=== PATIENT | male | born 1940 | race Caucasian/White ===

== ENCOUNTER 2017-10-29 17:53 | Emergency (ER) | payer MEDICARE, SELFPAY ==
[2017-10-29 17:55] VITALS: BP 128/60; PULSE 68; RESP 20; TEMP 36.5; O2SAT 95; BMI 30.9
--- NOTE | 2017-10-29 19:00 | ED.SOB ---
HPI - SOB/Dyspnea General Chief Complaint: Shortness of Breath/Dyspnea Stated Complaint: SOB Time Seen by Provider: 10/29/17 18:34 Source: patient and family Mode of arrival: ambulatory Limitations: no limitations History of Present Illness 76-year-old male with 30 pack-year history of smoking, AFib and hypertension presents to the emergency department with about 2 months of slowly worsening shortness of breath and cough. He states his symptoms tend to be worse at night particularly when lying flat. Additionally he is more short of breath with any exertion. Though he has a 30 pack year history of smoking he quit about 30 years ago. He has seen his primary care provider and even a motor coach tour operator within the past 2 months for help with his breathing difficulties and has been placed on bronchodilators and steroids without much improvement. He denies any recent travel, history of clots or cancer. He denies fever or chills. His last chest x-ray here was in June of 2016 and noted the the possibility of atelectasis versus pneumonia in the right lower lobe. MD Complaint: shortness of breath and cough Onset (ago): month(s) Context: occurred during exertion and smoke/fume exposure Severity: moderate Consistency/Duration: constant Relieving factors: rest Exacerbating factors: lying flat, movement and coughing Known history of: COPD Associated symptoms: denies other symptoms Treatment prior to arrival: none Related Data Home Medications Medication Instructions Recorded Confirmed [ZINC] 25 mg PO HS #0 07/07/16 omega 6-zly-thf-fish oil [Fish Oil] 1 cap PO BID #0 07/07/16 ropinirole [Requip] 2 mg PO HS #0 07/07/16 docusate sodium 250 mg PO BID #0 09/17/16 gabapentin [Neurontin] 300 mg PO HS #0 09/17/16 metronidazole 1 pepe TOPICAL #0 09/17/16 testosterone cypionate 200 mg IM X1 #0 09/17/16 [Depo-Testosterone] vitamin B complex [B 1 tab PO QDAY #0 09/17/16 Complex-Vitamin B12] aspirin 81 mg PO QDAY #0 05/02/17 levothyroxine [Synthroid] 125 mcg PO QDAY #0 05/02/17 metformin [Glucophage] 500 mg PO BIDCC #0 05/02/17 lorazepam 0.5 - 1 tab PO HSP PRN #0 05/07/17 rivaroxaban [Xarelto] 20 mg PO QDAY #0 05/07/17 Previous Rx's Medication Instructions Recorded hydroxyzine pamoate 25 mg PO Q4HP PRN #30 cap 05/11/17 morphine 15 mg PO BID PRN #60 05/11/17 oxycodone 5 - 15 mg PO Q3HP PRN #90 05/11/17 tamsulosin [Flomax] 0.4 mg PO QDAY #10 cap 05/14/17 codeine-guaifenesin 10 ml PO Q4-6H PRN #120 ml 10/29/17 promethazine-DM 5 ml PO Q4-6H PRN #118 ml 10/29/17 Allergies Allergy/AdvReac Type Severity Reaction Status Date / Time metoprolol [METOPROLOL] AdvReac Severe FATIGUE Verified 10/29/17 17:59 pravastatin [PRAVASTATIN] AdvReac Severe ARTHALGIAS Verified 10/29/17 17:59 Review of Systems Review of Systems All systems reviewed & are unremarkable except as noted in HPI and below Constitutional Denies chills, Denies fever(s), Denies lethargy and Denies weakness Eyes Denies change in vision, Denies eye discharge, Denies irritation and Denies loss of vision ENT Ears, Nose, Mouth, and Throat: Denies change in voice, Denies neck pain and Denies sore throat Cardiovascular Denies chest pain, Denies irregular heart rhythm, Denies lightheadedness, Denies palpitations, Reports dyspnea, Denies dyspnea on exertion and Denies orthopnea Respiratory Reports cough, Reports dyspnea, Denies dyspnea on exertion and Denies wheezing Gastrointestinal Gastrointestinal: Denies abdominal pain, Denies change in bowel habits, Denies diarrhea, Denies nausea and Denies vomiting Genitourinary Denies hematuria, Denies flank pain, Denies urinary incontinence and Denies urinary urgency Musculoskeletal Denies neck pain Integumentary/Breasts Denies pruritus, Denies erythema, Denies rash and Denies wounds Neurologic Denies confusion, Denies loss of vision and Denies weakness Psychiatric Denies anxiety, Denies confusion, Denies depression, Denies homicidal ideation and Denies suicidal ideation Endocrine Denies palpitations Hematologic/Lymphatic Denies easy bruising Allergic/Immunologic Denies wheezing PFSH Social History Smoking Status: Former smoker Exam Narrative Exam Narrative: Pleasant 76-year-old male appears stated age. Is resting comfortably but short of breath with exertion Initial Vital Signs Initial Vital Signs: Vital Signs Temperature 97.7 F 10/29/17 17:55 Pulse Rate 68 10/29/17 17:55 Respiratory Rate 20 10/29/17 17:55 Blood Pressure 128/60 H 10/29/17 17:55 Pulse Oximetry 95 10/29/17 17:55 Const General: cooperative and well developed Nutritional Appearance: well nourished Orientation: alert, awake, oriented x3 and not confused HENMT Head: normocephalic and atraumatic Ears: external ears normal and TM's normal bilaterally Nose: external nose normal and No nasal discharge Face and sinus: sinuses nontender, face symmetric, no sinus tenderness and No dry mucous membranes Mouth: oral mucosae normal and moist mucous membranes Teeth and gingiva: dentition normal Throat: tonsils normal and uvula midline Eyes General: appearance normal, both eyes and all related structures Eyelids: eyelids normal Conjunctivae: conjunctivae normal Sclera: sclerae normal Pupils: PERRL EOM: EOM intact bilaterally Chest Chest: normal inspection of the chest Resp Effort & Inspection: normal respiratory effort, able to speak in complete sentences, no respiratory distress and no use of accessory muscles Auscultation: diminished lung sounds (Right greater than left with some crackles in the right base), no rales, no rhonchi and no wheezes Cardio Rate: regular rate Rhythm: abnormal rhythm GI Inspection: non-distended Palpation: soft, no hepatosplenomegaly, No guarding, No pulsatile mass and No tender Auscultation: normal bowel sounds Back/Spine/Pelvis Back: No CVA tenderness Cervical Spine: cervical ROM normal and No pain with cervical ROM Thoracic/Lumbar Spine: thoracic and lumbar spine normal to inspection Neuro General: alert, oriented x3, gait normal and no focal motor deficits Speech: speech normal Course Orders Ordered: ED Orders 10/29/17 18:10 B Type Natriuretic Peptide Stat Basic Metabolic Panel Stat Complete Blood Count AUTO DIFF Stat Magnesium Stat Procalcitonin Stat Troponin with CK Cardiac Panel Stat 10/29/17 18:50 Lactate (Lactic Acid) Stat 10/29/17 18:51 Consult to Respiratory Therapy Evaluate & Treat EKG-12 Lead Stat 10/29/17 19:20 Blood Culture Stat 10/29/17 19:39 CT angio chest PE protocol Stat Discontinued Medications Guaifenesin/Codeine Phosphate (Guaifenesin/Codeine Liquid) 10 ml PO NOW ONE Stop: 10/29/17 21:13 Last Admin: 10/29/17 21:13 Dose: 10 ml Levalbuterol HCl (Xopenex) 1.25 mg INH NOW ONE Stop: 10/29/17 18:53 Last Admin: 10/29/17 19:39 Dose: 1.25 mg Methylprednisolone (Solu-Medrol 125 Mg Vial) 125 mg IV NOW ONE Stop: 10/29/17 18:52 Last Admin: 10/29/17 20:06 Dose: 125 mg Reevaluation(s) Reevaluation #1: Patient shows minimal change in symptoms after bronchodilators and steroids but cough is improved after codeine syrup Consultations Consultation #1: Upon receipt of CT scan I delivered unfortunate news to family that this appears to be a newly discovered cancers lesion in his right lung. They were very adamant no initial evaluation treatment be started locally and request consultation with the [facility]. I consulted the [facility] transfer center and they put me in touch with Dr. Leon whom was on-call for oncology. He put in an e-mail to his intake serviced to contact the patient at home tomorrow as he does not meet any admission or transfer criteria Vital Signs - 8 hr 10/29/17 19:39 10/29/17 21:43 Pulse Rate 53 L 74 Respiratory Rate 12 16 Blood Pressure [Left Arm] 155/50 H Pulse Oximetry 95 90 L MDM - SOB/Dyspnea Differential Diagnosis Likely acute exacerbation of chronic obstructive airways disease, congestive heart failure, community acquired pneumonia, asthma with exacerbation and pulmonary embolism Lab Data Attestation: I reviewed the patient's lab results. Result diagrams: 10/29/17 18:10 10/29/17 18:10 Lab Results 10/29/17 10/29/17 10/29/17 Range/Units 18:10 18:10 18:10 WBC 6.8 (4.5-11.0) X10^3/uL RBC 5.01 (4.5-5.9) X10^6/uL Hgb 12.0 L (13.5-17.5) g/dL Hct 36.9 L (41-53) % MCV 73.7 L (80-100) fL MCH 24.0 L (26-34) PG MCHC 32.6 (30-36) % RDW 17.6 H (11.6-14.8) % Plt Count 220 (150-400) X10^3/uL Neut % (Auto) 82.0 H (50-75) % Lymph % (Auto) 11.6 L (25-40) % [place] % (Auto) 4.8 (3-14) % Eos % (Auto) 1.2 L (2-4) % Baso % (Auto) 0.4 (0-2) % Neut # (Auto) 5500 (7138-9474) /uL Sodium 137 (137-145) mmol/L Potassium 3.6 (3.4-5.1) mmol/L Chloride 95 L (98-107) mmol/L Carbon Dioxide 34 H (22-32) mmol/L BUN 27 H (9-20) mg/dL Creatinine 0.70 (0.66-1.25) mg/dL Estimated GFR > 60.0 (>60) mL/min BUN/Creatinine Ratio 38.6 H (6-22) Glucose 116 H (80-110) mg/dL Lactate (0.7-2.1) mmol/L Calcium 8.3 L (8.4-10.2) mg/dL Magnesium 2.4 H (1.6-2.3) mg/dL Total Creatine Kinase 35 L (55-170) U/L Troponin I < 0.012 (0.01-0.034) ng/mL B-Natriuretic Peptide 26.7 (<29.3) Procalcitonin < 0.05 (<0.5) ng/mL 10/29/17 Range/Units 18:50 WBC (4.5-11.0) X10^3/uL RBC (4.5-5.9) X10^6/uL Hgb (13.5-17.5) g/dL Hct (41-53) % MCV (80-100) fL MCH (26-34) PG MCHC (30-36) % RDW (11.6-14.8) % Plt Count (150-400) X10^3/uL Neut % (Auto) (50-75) % Lymph % (Auto) (25-40) % [place] % (Auto) (3-14) % Eos % (Auto) (2-4) % Baso % (Auto) (0-2) % Neut # (Auto) (5659-3372) /uL Sodium (137-145) mmol/L Potassium (3.4-5.1) mmol/L Chloride (98-107) mmol/L Carbon Dioxide (22-32) mmol/L BUN (9-20) mg/dL Creatinine (0.66-1.25) mg/dL Estimated GFR (>60) mL/min BUN/Creatinine Ratio (6-22) Glucose (80-110) mg/dL Lactate 1.3 (0.7-2.1) mmol/L Calcium (8.4-10.2) mg/dL Magnesium (1.6-2.3) mg/dL Total Creatine Kinase (55-170) U/L Troponin I (0.01-0.034) ng/mL B-Natriuretic Peptide (<29.3) Procalcitonin (<0.5) ng/mL Imaging Data CT scan - chest: Radiologist's impression: PROCEDURE: CT ANGIO CHEST PE PROTOCOL INDICATIONS: SHORTNESS OF BREATH, hypoxia TECHNIQUE: After the administration of intravenous contrast, 2 mm thick sections acquired from the pulmonary apices to the posterior costophrenic angles. 3-dimensional maximum intensity projection (MIP) coronal and sagittal reformats were then acquired through the thorax. For radiation dose reduction, the following was used: automated exposure control, adjustment of mA and/or kV according to patient size. COMPARISON: [facility], CT, LOWER EXTREMITY WO CONTRAST, 07/26/2015, 15:28. FINDINGS: Image quality: Excellent. Pulmonary arteries: Pulmonary arteries demonstrate no intraluminal filling defects to suggest central pulmonary embolism. Mediastinal and hilar lymphadenopathy narrows branches of the right pulmonary artery. Lungs and pleura: There is a 5.2 cm right lower lobe pulmonary mass. There is occlusion of the right lower lobe and middle lobe airways causing near-complete right middle lobe collapse. The left lung is clear. Mediastinum: Cardiomegaly. There is extensive lymphadenopathy centered on the right hilum in aggregate measuring 10.5 x 5.0 CM markedly narrowed branches of the right pulmonary artery as well as the right middle and lower lobe airways. Normal esophagus. Bones and chest wall: Extensive thoracolumbar spine postoperative change. Vertebroplasty. Severe degenerative change. Abdomen: Cholelithiasis with no CT evidence of acute cholecystitis. Low-density right renal nodule most consistent with a simple cyst. Prominent left adrenal gland with no discrete nodule. Otherwise visualized upper abdominal solid organs appear normal in the early arterial phase of enhancement. IMPRESSION: 1. Malignant right lower lobe mass with extensive mediastinal and right hilar lymphadenopathy measuring in aggregate over 10 cm narrowing branches of the right pulmonary artery and the right middle and lower lobe airways causing postobstructive collapse of the right middle lobe. 2. No CT evidence of acute pulmonary emboli. 3. Extensive thoracolumbar spine postoperative change and degenerative change. 4. Cholelithiasis. Dictated by: David Grubbs M.D. on 10/29/2017 at 20:14 Approved by: David Grubbs M.D. 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 I will call you or your son dari when I get more info Return to the emergency department if you have any worsening symptoms Prescriptions: New promethazine-DM 6.25-15 mg/5 mL syrup 5 ml PO Q4-6H PRN (Reason: cough) Qty: 118 RF: 0 codeine-guaifenesin 10-100 mg/5 mL liquid 10 ml PO Q4-6H PRN (Reason: cough) Qty: 120 RF: 0 No Action ropinirole [Requip] 1 MG tablet 2 mg PO HS Qty: 0 RF: 0 omega 4-mnw-scm-fish oil [Fish Oil] 1,000 MG capsule 1 cap PO BID Qty: 0 RF: 0 [ZINC] 25 mg PO HS Qty: 0 RF: 0 vitamin B complex [B Complex-Vitamin B12] 1 EACH tablet 1 tab PO QDAY Qty: 0 RF: 0 gabapentin [Neurontin] 300 MG capsule 300 mg PO HS Qty: 0 RF: 0 docusate sodium 250 MG capsule 250 mg PO BID Qty: 0 RF: 0 metronidazole 0.75 % cream 1 pepe Topical Qty: 0 RF: 0 testosterone cypionate [Depo-Testosterone] 200 MG/1 ML oil 200 mg IM X1 Qty: 0 RF: 0 levothyroxine [Synthroid] 125 MCG tablet 125 mcg PO QDAY Qty: 0 RF: 0 aspirin 81 MG tablet,delayed release (DR/EC) 81 mg PO QDAY Qty: 0 RF: 0 metformin [Glucophage] 500 MG tablet 500 mg PO BIDCC Qty: 0 RF: 0 lorazepam 1 MG tablet 0.5 - 1 tab PO HSP PRNQty: 0 RF: 0 rivaroxaban [Xarelto] 20 MG tablet 20 mg PO QDAY Qty: 0 RF: 0 oxycodone 5 MG tablet 5 - 15 mg PO Q3HP PRNQty: 90 RF: 0 hydroxyzine pamoate 25 MG capsule 25 mg PO Q4HP PRNQty: 30 RF: 0 morphine 15 MG tablet extended release 15 mg PO BID PRNQty: 60 RF: 0 tamsulosin [Flomax] 0.4 MG capsule,extended release 24hr 0.4 mg PO QDAY Qty: 10 RF: 0
[2017-10-29 19:08] LABS: BUN Creatinine Ratio 38.6 (6-22); Blood Urea Nitrogen 27 mg/dL (9-20); Calcium 8.3 mg/dL (8.4-10.2); Carbon Dioxide 34 mmol/L (22-32); Chloride 95 mmol/L (98-107); Creatine Kinase 35 U/L (55-170); Estimated Glomerular Filt Rate > 60.0 mL/min (>60); Glucose 116 mg/dL (80-110); HEMOLYSIS < 15 (0-50); Magnesium 2.4 mg/dL (1.6-2.3); Potassium 3.6 mmol/L (3.4-5.1); Sodium 137 mmol/L (137-145)
--- NOTE | 2017-10-29 19:08 | PC.NURSE ---
bhavya blood cx and lactate out of iv site. lab to draw 2nd cx
[2017-10-29 19:09] LABS: Add Manual Diff / Slide Review NO; Basophils Percent Auto 0.4 % (0-2); Eosinophils Percent Auto 1.2 % (2-4); Hematocrit 36.9 % (41-53); Lymphocytes Percent Auto 11.6 % (25-40); Mean Corpuscular HGB Conc 32.6 % (30-36); Mean Corpuscular Volume 73.7 fL (80-100); Monocytes Percent Auto 4.8 % (3-14); Neutrophils Absolute Auto 5500 /uL (3000-5900); Platelet Count 220 X10^3/uL (150-400); Red Blood Cell Count 5.01 X10^6/uL (4.5-5.9); Red Cell Distribution Width 17.6 % (11.6-14.8); White Blood Cell Count 6.8 X10^3/uL (4.5-11.0)
[2017-10-29 19:23] LABS: Troponin I < 0.012 ng/mL (0.01-0.034)
[2017-10-29 19:26] LABS: B Type Natriuretic Peptide 26.7 (<29.3)
[2017-10-29 19:26] LABS: Lactate (Lactic Acid) 1.3 mmol/L (0.7-2.1)
[2017-10-29 19:31] LABS: Procalcitonin < 0.05 ng/mL (<0.5)
[2017-10-29 19:39] VITALS: PULSE 53; RESP 12; O2SAT 95
[2017-10-29] MEDS: LEVALBUTEROL 1.25 MG/0.5 ML NEB INH (19:39)
--- NOTE | 2017-10-29 19:39 | DI.CT.S_ITS ---
PROCEDURE: CT ANGIO CHEST PE PROTOCOL INDICATIONS: SHORTNESS OF BREATH, hypoxia TECHNIQUE: After the administration of intravenous contrast, 2 mm thick sections acquired from the pulmonary apices to the posterior costophrenic angles. 3-dimensional maximum intensity projection (MIP) coronal and sagittal reformats were then acquired through the thorax. For radiation dose reduction, the following was used: automated exposure control, adjustment of mA and/or kV according to patient size. COMPARISON: [facility], CT, LOWER EXTREMITY WO CONTRAST, 07/26/2015, 15:28. FINDINGS: Image quality: Excellent. Pulmonary arteries: Pulmonary arteries demonstrate no intraluminal filling defects to suggest central pulmonary embolism. Mediastinal and hilar lymphadenopathy narrows branches of the right pulmonary artery. Lungs and pleura: There is a 5.2 cm right lower lobe pulmonary mass. There is occlusion of the right lower lobe and middle lobe airways causing near-complete right middle lobe collapse. The left lung is clear. Mediastinum: Cardiomegaly. There is extensive lymphadenopathy centered on the right hilum in aggregate measuring 10.5 x 5.0 CM markedly narrowed branches of the right pulmonary artery as well as the right middle and lower lobe airways. Normal esophagus. Bones and chest wall: Extensive thoracolumbar spine postoperative change. Vertebroplasty. Severe degenerative change. Abdomen: Cholelithiasis with no CT evidence of acute cholecystitis. Low-density right renal nodule most consistent with a simple cyst. Prominent left adrenal gland with no discrete nodule. Otherwise visualized upper abdominal solid organs appear normal in the early arterial phase of enhancement. IMPRESSION: 1. Malignant right lower lobe mass with extensive mediastinal and right hilar lymphadenopathy measuring in aggregate over 10 cm narrowing branches of the right pulmonary artery and the right middle and lower lobe airways causing postobstructive collapse of the right middle lobe. 2. No CT evidence of acute pulmonary emboli. 3. Extensive thoracolumbar spine postoperative change and degenerative change. 4. Cholelithiasis. Dictated by: David Grubbs M.D. on 10/29/2017 at 20:14 Approved by: David Grubbs M.D. on 10/29/2017 at 20:25
--- NOTE | 2017-10-29 19:39 | PC.NURSE ---
pt reports worsening fatigue/soa for weeks, difficulty clearing secretions, reports sx resolve with cough syrup with tylenol 3s and a tranquilizer, upper lung fink clear, diminished at bases, afib on monitor reported as baseline per pt, denies fever/nausea/dizziness/headache/cp/abd pain/vomiting/dysuria, reports chronic constipation, abd soft/nontender, +1 edema in lower ext
[2017-10-29] MEDS: methylPREDNISolone 125 MG/2 ML VIAL IV (20:06)
[2017-10-29] MEDS: CODEINE/GUAIFENESIN LIQUID 10 ML PO (21:13)
[2017-10-29 21:43] VITALS: BP 155/50; PULSE 74; RESP 16; O2SAT 90
== END 2017-10-29 22:00 | disposition home or self-care (01) ==
PROVIDERS: Emergency Provider Emergency Medicine; Family Provider Internal Medicine; PCP Internal Medicine
DX: C34.91 Malignant neoplasm of unspecified part of right bronchus or lung (principal)
CPT/HCPCS: 36415; 36591; 71275; 80048; 82550; 82553; 83605; 83735; 83880; 84145; 84484; 85025; 87040; 93005; 94640; 96374; 99282; 99285; J2930; J7614; Q9967

== ENCOUNTER → 2017-11-21 11:27 | Outpatient (CLI) | payer MEDICARE, SELFPAY ==
--- NOTE | 2017-11-23 07:54 | PM.PFT.1 ---
Pulmonary Function Test Referral & Results Date Patient Seen: 11/21/17 Requesting provider: Cristela Hauser Results: The spirometry demonstrates an FVC of 1.93 L which is 42% of predicted. The FEV1 was measured at 1.15 L which is 34% of predicted. The FEV1/FVC ratio was 60 which is 81% of predicted. Following the administration of bronchodilator there was a 17% improvement in the FEV1 and a 71% improvement in the FEF 25-75%. Lung volumes show an SVC of 2.18 L which is 45% of predicted. The diffusing capacity was measured at 17.33 which is 49% of predicted. The maximum voluntary ventilation was reduced. Interpretation: This study demonstrates severe obstructive lung disease with some limited evidence of benefit following bronchodilator, with increase in FEV1 and a more significant increase in small airway flow based on improvement in FEF 25-75%. There is also moderately severe restrictive lung disease based on significant reduction in lung volumes There is also significant reduction in diffusing capacity suggesting significant disease at the capillary alveolar level.
== END ==
PROVIDERS: Family Provider Internal Medicine Geriatric Medicine; PCP Internal Medicine Cardiovascular Disease; Visit Provider Radiology Radiation Oncology
DX: C34.31 Malignant neoplasm of lower lobe, right bronchus or lung (principal)
CPT/HCPCS: 94010; 94060; 94729

== ENCOUNTER → 2018-02-11 11:06 | Outpatient (CLI) | payer MEDICARE, SELFPAY ==
[2018-02-11 11:41] LABS: Occult Blood 1 Negative (Negative); Occult Blood 2 Negative (Negative); Occult Blood 3 Negative (Negative)
== END ==
PROVIDERS: Family Provider Internal Medicine Geriatric Medicine; PCP Internal Medicine Cardiovascular Disease; Visit Provider Internal Medicine Medical Oncology
DX: C34.90 Malignant neoplasm of unspecified part of unspecified bronchus or lung (principal)
CPT/HCPCS: 82270

== ENCOUNTER 2018-04-10 13:07 | Emergency (ER) | payer MEDICARE, SELFPAY ==
[2018-04-10 13:20] VITALS: BP 164/95; PULSE 105; RESP 21; TEMP 36.7; O2SAT 96
--- NOTE | 2018-04-10 13:47 | DI.CT.S_ITS ---
PROCEDURE: CT ANGIO CHEST PE PROTOCOL INDICATIONS: SOB, hx of lung cancer effusion TECHNIQUE: After the administration of intravenous contrast, 2 mm thick sections acquired from the pulmonary apices to the posterior costophrenic angles. 3-dimensional maximum intensity projection (MIP) coronal and sagittal reformats were then acquired through the thorax. For radiation dose reduction, the following was used: automated exposure control, adjustment of mA and/or kV according to patient size. COMPARISON: [facility], CT, CT ANGIO CHEST PE PROTOCOL, 10/29/2017, 19:36. FINDINGS: Image quality: Excellent. Pulmonary arteries: Pulmonary arteries are normal in size, and demonstrate no intraluminal filling defects to suggest central pulmonary embolism. Lungs and pleura: There is a large low density right pleural effusion which is new when compared with the prior CT dated 10/29/17. Patient has likely undergone radiation therapy for a lobulated hilar mass described on the prior CT dated 10/29/17. Findings consistent with postradiation scar is now present. However, patchy pulmonary opacities are also present within the right lower lobe and the right middle lobe which have the appearance of acute airspace disease. The left lung is clear. No pneumothorax. Mediastinum: Heart size is enlarged, without pericardial effusion. No mediastinal or hilar adenopathy. Thoracic aorta is normal in caliber and enhancement. Scattered atheromatous calcifications are present within the aortic arch. Esophagus is normal in caliber, without hiatal hernia. Bones and chest wall: No suspicious bony lesions. Posterior spinal fixation hardware is grossly intact. Ribs and thoracic spine appear intact throughout. Thyroid gland is unremarkable. No axillary or supraclavicular adenopathy. Abdomen: Visualized upper abdominal solid organs appear normal in the early arterial phase of enhancement. IMPRESSION: 1. Large low density right pleural effusion which is new when compared with the prior CT dated 10/29/17. 2. Air space opacities, some of which may represent radiation scarring; however superimposed pneumonia or aspiration is suggested given the pattern and distribution of the air space opacities. 3. No acute pulmonary embolus. Dictated by: Mica Frederick M.D. on 04/10/2018 at 15:26 Approved by: Mica Frederick M.D. on 04/10/2018 at 15:30
--- NOTE | 2018-04-10 13:49 | ED.SOB ---
HPI - SOB/Dyspnea General Chief Complaint: Shortness of Breath/Dyspnea Stated Complaint: Multiple complaints, family says cognitive issues Time Seen by Provider: 04/10/18 13:19 Source: patient Mode of arrival: ambulatory Limitations: no limitations History of Present Illness The patient is a 77-year-old male who presents with shortness of breath. He has past medical history of known lung cancer currently being treated at [facility] he is enrolled in a clinical study he is done with chemotherapy and is on immunotherapy. He has had a right pleural effusion in the past which has required thoracentesis. He is currently in AFib with RVR he denies chest pain or heart palpitations. He has had frequent episodes of dyspnea both at rest and with exertion. He used to be on anticoagulation both the Xarelto and Coumadin at some point but is on neither now. He has not had fever or chills. He is here with son and both of whom are very informed. MD Complaint: shortness of breath Related Data Home Medications Medication Instructions Recorded Confirmed [ZINC] 25 mg PO HS #0 07/07/16 omega 9-nze-uvw-fish oil [Fish Oil] 1 cap PO BID #0 07/07/16 ropinirole [Requip] 2 mg PO HS #0 07/07/16 metronidazole 1 pepe TOPICAL #0 09/17/16 testosterone cypionate 200 mg IM X1 #0 09/17/16 [Depo-Testosterone] vitamin B complex [B 1 tab PO QDAY #0 09/17/16 Complex-Vitamin B12] aspirin 81 mg PO QDAY #0 05/02/17 levothyroxine [Synthroid] 125 mcg PO QDAY #0 05/02/17 04/10/18 metformin [Glucophage] 1,000 mg PO BIDCC #0 05/02/17 04/10/18 albuterol sulfate [ProAir HFA] 2 puff INHALATION Q6H PRN 04/10/18 04/10/18 atorvastatin 10 mg PO QPM 04/10/18 04/10/18 diltiazem HCl 180 mg PO DAILY 04/10/18 04/10/18 dorzolamide-timolol 1 drp OPHTHALMIC (EYE) BID 04/10/18 04/10/18 doxazosin 4 mg PO DAILY 04/10/18 04/10/18 duloxetine 20 mg PO DAILY 04/10/18 04/10/18 escitalopram oxalate 20 mg PO DAILY 04/10/18 04/10/18 furosemide 20 mg PO DAILY PRN 04/10/18 04/10/18 ketoconazole 1 applic TOPICAL BID 04/10/18 04/10/18 latanoprost 1 drp OPHTHALMIC (EYE) BEDTIME 04/10/18 04/10/18 lorazepam 1.5 mg PO BEDTIME PRN 04/10/18 04/10/18 metoclopramide HCl 10 mg PO Q6H PRN 04/10/18 04/10/18 metronidazole 1 applic TOPICAL BID 04/10/18 04/10/18 omeprazole 40 mg PO DAILY 04/10/18 04/10/18 potassium chloride 10 meq PO BID 04/10/18 04/10/18 ropinirole 0.5 mg PO BEDTIME 04/10/18 04/10/18 ropinirole 2 mg PO BEDTIME 04/10/18 04/10/18 sennosides [senna] 17.2 mg PO BEDTIME PRN 04/10/18 04/10/18 tamsulosin [Flomax] 0.4 mg PO BEDTIME 04/10/18 04/10/18 Previous Rx's Medication Instructions Recorded oxycodone 5 - 15 mg PO Q3HP PRN #90 05/11/17 codeine-guaifenesin 10 ml PO Q4-6H PRN #120 ml 10/29/17 promethazine-DM 5 ml PO Q4-6H PRN #118 ml 10/29/17 Allergies Allergy/AdvReac Type Severity Reaction Status Date / Time metoprolol [METOPROLOL] AdvReac Severe FATIGUE Verified 10/29/17 17:59 pravastatin [PRAVASTATIN] AdvReac Severe ARTHALGIAS Verified 10/29/17 17:59 Review of Systems Review of Systems All systems reviewed & are unremarkable except as noted in HPI and below Constitutional Denies chills, Denies fatigue, Denies fever(s), Denies lethargy and Denies weakness Cardiovascular Reports as per HPI, Reports irregular heart rhythm (Atrial fibrillation), Reports dyspnea and Reports dyspnea on exertion Respiratory Reports as per HPI, Denies cough, Reports dyspnea, Reports dyspnea on exertion and Denies wheezing Gastrointestinal Gastrointestinal: Denies abdominal pain, Denies change in bowel habits, Denies diarrhea, Denies nausea and Denies vomiting Genitourinary Denies hematuria, Denies flank pain, Denies urinary incontinence and Denies urinary urgency Musculoskeletal Denies back pain, Denies muscle weakness, Denies numbness and Denies tingling Integumentary/Breasts Denies pruritus, Denies erythema, Denies rash and Denies wounds Neurologic Denies numbness, Denies tingling and Denies weakness Endocrine Denies fatigue and Denies flushing Allergic/Immunologic Denies wheezing PFSH Medical History Atrial fibrillation (Acute) Diabetes (Acute) Lung cancer (Acute) Social History Smoking Status: Former smoker Exam Initial Vital Signs Initial Vital Signs: Vital Signs Temperature 98.1 F 04/10/18 13:20 Pulse Rate 105 H 04/10/18 13:20 Respiratory Rate 21 04/10/18 13:20 Blood Pressure 164/95 H 04/10/18 13:20 Pulse Oximetry 96 04/10/18 13:20 GENERAL: Alert comfortable A&Ox3 no acute distress HEENT: Head atraumatic,EOMI, pupils reactive, neck is supple no JVD CARDIOVASCULAR: irregularly irregular no murmur RESPIRATORY: Decreased low no wheezes rales or rhonchi speaks in full sentences without difficulty ABDOMEN: Soft, nontender. Normoactive bowel sounds all 4 quadrants. No guarding or rebound. EXTREMITIES: Normal range of motion, no clubbing or edema. Neurovascularly intact NEUROLOGICAL: Alert and oriented x4.Normal gait and speech. Cranial nerves II through XII grossly intact. SKIN: Warm, dry, no laceration, no petechiae, no rashes or lesions. Course Orders Ordered: ED Orders 04/10/18 13:46 Consult to Respiratory Therapy Evaluate & Treat 04/10/18 13:47 CT angio chest PE protocol Stat 04/10/18 14:25 B Type Natriuretic Peptide Stat Complete Blood Count AUTO DIFF Stat Comprehensive Metabolic Panel Stat Partial Thromboplastin Time Stat Prothrombin Time INR Stat Troponin & CK Cardiac Panel Stat Discontinued Medications Diltiazem HCl (Cardizem) 10 mg IV NOW ONE Stop: 04/10/18 15:54 Last Admin: 04/10/18 16:00 Dose: 10 mg Vital Signs - 8 hr 04/10/18 13:20 04/10/18 15:29 04/10/18 16:00 Temperature 98.1 F Pulse Rate 105 H 109 H 123 H Respiratory Rate 21 16 Blood Pressure 164/95 H 178/89 H Blood Pressure [Left Arm] 184/83 H Pulse Oximetry 96 96 04/10/18 16:48 Temperature Pulse Rate 98 H Respiratory Rate 20 Blood Pressure 184/91 H Blood Pressure [Left Arm] Pulse Oximetry 95 MDM - SOB/Dyspnea Lab Data Attestation: I reviewed the patient's lab results. Result diagrams: 04/10/18 14:25 04/10/18 14:25 Lab Results 04/10/18 04/10/18 04/10/18 Range/Units 14:25 14:25 14:25 WBC 5.1 (4.5-11.0) X10^3/uL RBC 4.79 (4.5-5.9) X10^6/uL Hgb 12.2 L (13.5-17.5) g/dL Hct 37.8 L (41-53) % MCV 79.0 L (80-100) fL MCH 25.4 L (26-34) PG MCHC 32.2 (30-36) % RDW 18.8 H (11.6-14.8) % Plt Count 235 (150-400) X10^3/uL Neut % (Auto) 84.4 H (50-75) % Lymph % (Auto) 6.9 L (25-40) % [place] % (Auto) 5.1 (3-14) % Eos % (Auto) 2.8 (2-4) % Baso % (Auto) 0.8 (0-2) % Neut # (Auto) 4300 (5497-3171) /uL PT 11.3 (10.1-12.7) SECONDS INR 1.1 (0.9-1.3) APTT 35 (26.4-36.2) SECONDS Sodium (137-145) mmol/L Potassium (3.4-5.1) mmol/L Chloride (98-107) mmol/L Carbon Dioxide (22-32) mmol/L BUN (9-20) mg/dL Creatinine (0.66-1.25) mg/dL Estimated GFR (>60) mL/min BUN/Creatinine Ratio (6-22) Glucose (80-110) mg/dL Calcium (8.4-10.2) mg/dL Total Bilirubin (0.2-1.3) mg/dL AST (17-59) IU/L ALT (21-72) IU/L Alkaline Phosphatase (38-126) U/L Total Creatine Kinase 42 L (55-170) U/L CK-MB (CK-2) TNP CK-MB (CK-2) Rel Index TNP Troponin I 0.013 (0.01-0.034) ng/mL B-Natriuretic Peptide 111.0 H (<100) Total Protein (6.3-8.2) g/dL Albumin (3.5-5.0) g/dL Globulin (1.7-4.1) g/dL Albumin/Globulin Ratio (1.0-2.8) //18 Range/Units 14:25 WBC (4.5-11.0) X10^3/uL RBC (4.5-5.9) X10^6/uL Hgb (13.5-17.5) g/dL Hct (41-53) % MCV (80-100) fL MCH (26-34) PG MCHC (30-36) % RDW (11.6-14.8) % Plt Count (150-400) X10^3/uL Neut % (Auto) (50-75) % Lymph % (Auto) (25-40) % [place] % (Auto) (3-14) % Eos % (Auto) (2-4) % Baso % (Auto) (0-2) % Neut # (Auto) (9682-9696) /uL PT (10.1-12.7) SECONDS INR (0.9-1.3) APTT (26.4-36.2) SECONDS Sodium 139 (137-145) mmol/L Potassium 3.9 (3.4-5.1) mmol/L Chloride 96 L (98-107) mmol/L Carbon Dioxide 34 H (22-32) mmol/L BUN 18 (9-20) mg/dL Creatinine 0.60 L (0.66-1.25) mg/dL Estimated GFR > 60.0 (>60) mL/min BUN/Creatinine Ratio 30.0 H (6-22) Glucose 189 H (80-110) mg/dL Calcium 8.7 (8.4-10.2) mg/dL Total Bilirubin 0.5 (0.2-1.3) mg/dL AST 22 (17-59) IU/L ALT 24 (21-72) IU/L Alkaline Phosphatase 88 (38-126) U/L Total Creatine Kinase (55-170) U/L CK-MB (CK-2) CK-MB (CK-2) Rel Index Troponin I (0.01-0.034) ng/mL B-Natriuretic Peptide (<100) Total Protein 6.4 (6.3-8.2) g/dL Albumin 3.9 (3.5-5.0) g/dL Globulin 2.5 (1.7-4.1) g/dL Albumin/Globulin Ratio 1.6 (1.0-2.8) Imaging Data CT PE: Radiologist's impression: PROCEDURE: CT ANGIO CHEST PE PROTOCOL INDICATIONS: SOB, hx of lung cancer effusion TECHNIQUE: After the administration of intravenous contrast, 2 mm thick sections acquired from the pulmonary apices to the posterior costophrenic angles. 3-dimensional maximum intensity projection (MIP) coronal and sagittal reformats were then acquired through the thorax. For radiation dose reduction, the following was used: automated exposure control, adjustment of mA and/or kV according to patient size. COMPARISON: [facility], CT, CT ANGIO CHEST PE PROTOCOL, 10/29/2017, 19:36. FINDINGS: Image quality: Excellent. Pulmonary arteries: Pulmonary arteries are normal in size, and demonstrate no intraluminal filling defects to suggest central pulmonary embolism. Lungs and pleura: There is a large low density right pleural effusion which is new when compared with the prior CT dated 10/29/17. Patient has likely undergone radiation therapy for a lobulated hilar mass described on the prior CT dated 10/29/17. Findings consistent with postradiation scar is now present. However, patchy pulmonary opacities are also present within the right lower lobe and the right middle lobe which have the appearance of acute airspace disease. The left lung is clear. No pneumothorax. Mediastinum: Heart size is enlarged, without pericardial effusion. No mediastinal or hilar adenopathy. Thoracic aorta is normal in caliber and enhancement. Scattered atheromatous calcifications are present within the aortic arch. Esophagus is normal in caliber, without hiatal hernia. Bones and chest wall: No suspicious bony lesions. Posterior spinal fixation hardware is grossly intact. Ribs and thoracic spine appear intact throughout. Thyroid gland is unremarkable. No axillary or supraclavicular adenopathy. Abdomen: Visualized upper abdominal solid organs appear normal in the early arterial phase of enhancement. IMPRESSION: 1. Large low density right pleural effusion which is new when compared with the prior CT dated 10/29/17. 2. Air space opacities, some of which may represent radiation scarring; however superimposed pneumonia or aspiration is suggested given the pattern and distribution of the air space opacities. 3. No acute pulmonary embolus. Dictated by: Mica Frederick M.D. on 04/10/2018 at 15:26 ECG Data Attestation: I personally reviewed and interpreted this ECG as follows: Prior ECG tracings: available for review Interpretation: atrial fibrillation rate [address] changes to previous EKG MDM Narrative Medical decision making narrative: long discussion with family. It is difficult to tell if the CT is changed from his most recent imaging down in [place]. He does have a pleural effusion, he also has some likely scarring in the right long. As he also is noted to be in AFib with RVR which has slowed down without medication in the ED however it is still jump up into the 120s at times. His he has multiple things which could be contributing to his dyspnea. Family also thinks that there is a component of anxiety which may be true as well however is I discussed with them that it is very important if they feel he is having trouble breathing that they bring him to the emergency department there is is many things that it could be and he is high risk. They are given a copy of the disc and the report to take to their oncologist. His at this time and patient is not hypoxic he is asymptomatic he has been asymptomatic while in the emergency department. At this time I recommend discharge. family is in agreement to this. I discussed all findings with the patient and son, Education has been performed regarding treatment plan, diagnosis, warning signs and symptoms and all concerns have been addressed. Verbally agree with and understood all of the above. Discharge Plan Departure Patient Disposition: Home Clinical Impression: Atrial fibrillation, Lung cancer Discharge Date/Time: 04/10/18 16:50 Interventions: ED Discharge Assessment Last Done: 04/10/18 16:48 Instructions: Atrial Fibrillation Activity Restrictions/Additional Instructions: *You have been diagnosed with ATRIAL FIBRILLATION, LUNG CANCER *What to do: SHORTNESS OF BREATH IS MULTIFACTORIAL, LUNG CANCER, ATRIAL FIBRILLATION *Continue to take medications as directed *Follow up with your primary care provider in 2-3 days FOLLOW UP WITH [facility]. YOU HAVE BEEN GIVEN A DISC. *Return to ER if you should have SHORTNESS OF BREATH, CHEST PAIN, or any new, worsening or concerning symptoms Prescriptions: No Action ropinirole [Requip] 1 MG tablet 2 mg PO HS Qty: 0 RF: 0 omega 2-qvm-woj-fish oil [Fish Oil] 1,000 MG capsule 1 cap PO BID Qty: 0 RF: 0 [ZINC] 25 mg PO HS Qty: 0 RF: 0 vitamin B complex [B Complex-Vitamin B12] 1 EACH tablet 1 tab PO QDAY Qty: 0 RF: 0 metronidazole 0.75 % cream 1 pepe Topical Qty: 0 RF: 0 testosterone cypionate [Depo-Testosterone] 200 MG/1 ML oil 200 mg IM X1 Qty: 0 RF: 0 levothyroxine [Synthroid] 125 MCG tablet 125 mcg PO QDAY Qty: 0 RF: 0 aspirin 81 MG tablet,delayed release (DR/EC) 81 mg PO QDAY Qty: 0 RF: 0 metformin [Glucophage] 500 MG tablet 1,000 mg PO BIDCC Qty: 0 RF: 0 oxycodone 5 MG tablet 5 - 15 mg PO Q3HP PRNQty: 90 RF: 0 promethazine-DM 6.25-15 mg/5 mL syrup 5 ml PO Q4-6H PRN (Reason: cough) Qty: 118 RF: 0 codeine-guaifenesin 10-100 mg/5 mL liquid 10 ml PO Q4-6H PRN (Reason: cough) Qty: 120 RF: 0 latanoprost 0.005 % drops 1 drp ophthalmic (eye) BEDTIME RF: 0 sennosides [senna] 8.6 mg tablet 17.2 mg PO BEDTIME PRN (Reason: Constipation) RF: 0 diltiazem HCl 180 mg capsule,extended release 24hr 180 mg PO DAILY RF: 0 potassium chloride 10 mEq tablet extended release 10 meq PO BID RF: 0 omeprazole 40 mg capsule,delayed release(DR/EC) 40 mg PO DAILY RF: 0 doxazosin 8 mg tablet 4 mg PO DAILY RF: 0 ropinirole 2 mg tablet 2 mg PO BEDTIME RF: 0 ropinirole 0.5 mg tablet 0.5 mg PO BEDTIME RF: 0 metronidazole 0.75 % cream 1 applic Topical BID RF: 0 dorzolamide-timolol 22.3-6.8 mg/mL drops 1 drp ophthalmic (eye) BID RF: 0 furosemide 20 mg tablet 20 mg PO DAILY PRN (Reason: Edema) RF: 0 lorazepam 1 mg tablet 1.5 mg PO BEDTIME PRN (Reason: Anxiety) RF: 0 albuterol sulfate [ProAir HFA] 90 mcg/actuation HFA aerosol inhaler 2 puff Inhalation Q6H PRN (Reason: Shortness Of Breath) RF: 0 ketoconazole 2 % cream 1 applic Topical BID RF: 0 metoclopramide HCl 10 mg tablet 10 mg PO Q6H PRN (Reason: Nausea And Vomiting) RF: 0 escitalopram oxalate 20 mg tablet 20 mg PO DAILY RF: 0 duloxetine 20 mg capsule,delayed release(DR/EC) 20 mg PO DAILY RF: 0 tamsulosin [Flomax] 0.4 MG capsule 0.4 mg PO BEDTIME RF: 0 atorvastatin 10 mg tablet 10 mg PO QPM RF: 0 Referrals: Allen Zaragoza MD [Primary Care Provider] -
[2018-04-10 14:36] LABS: Add Manual Diff / Slide Review NO; Basophils Percent Auto 0.8 % (0-2); Eosinophils Percent Auto 2.8 % (2-4); Hematocrit 37.8 % (41-53); Hemoglobin 12.2 g/dL (13.5-17.5); Lymphocytes Percent Auto 6.9 % (25-40); Mean Corpuscular HGB Conc 32.2 % (30-36); Mean Corpuscular Hemoglobin 25.4 PG (26-34); Monocytes Percent Auto 5.1 % (3-14); Neutrophils Absolute Auto 4300 /uL (3000-5900); Neutrophils Percent Auto 84.4 % (50-75); Platelet Count 235 X10^3/uL (150-400); Red Blood Cell Count 4.79 X10^6/uL (4.5-5.9); Red Cell Distribution Width 18.8 % (11.6-14.8); White Blood Cell Count 5.1 X10^3/uL (4.5-11.0)
[2018-04-10 14:43] LABS: INR 1.1 (0.9-1.3); Prothrombin Time 11.3 SECONDS (10.1-12.7)
[2018-04-10 14:46] LABS: PTT Partial Thromboplastin Tim 35 SECONDS (26.4-36.2)
[2018-04-10 14:49] LABS: Creatine Kinase 42 U/L (55-170)
[2018-04-10 14:50] LABS: Alanine Aminotransferase 24 IU/L (21-72); Albumin 3.9 g/dL (3.5-5.0); Albumin Globulin Ratio 1.6 (1.0-2.8); Alkaline Phosphatase 88 U/L (38-126); Aspartate Aminotransferase 22 IU/L (17-59); Bilirubin Total 0.5 mg/dL (0.2-1.3); Blood Urea Nitrogen 18 mg/dL (9-20); Calcium 8.7 mg/dL (8.4-10.2); Carbon Dioxide 34 mmol/L (22-32); Chloride 96 mmol/L (98-107); Estimated Glomerular Filt Rate > 60.0 mL/min (>60); Globulin 2.5 g/dL (1.7-4.1); Glucose 189 mg/dL (80-110); HEMOLYSIS < 15 (0-50); Potassium 3.9 mmol/L (3.4-5.1); Sodium 139 mmol/L (137-145); Total Protein 6.4 g/dL (6.3-8.2)
[2018-04-10 15:01] LABS: Troponin I 0.013 ng/mL (0.01-0.034)
[2018-04-10 15:29] VITALS: BP 184/83; PULSE 109; RESP 16; O2SAT 96
[2018-04-10 16:00] VITALS: BP 178/89; PULSE 123
[2018-04-10] MEDS: dilTIAZem 5 MG/ML SDV 10 MG IV (16:00)
[2018-04-10 16:48] VITALS: BP 184/91; PULSE 98; RESP 20; O2SAT 95
== END 2018-04-10 16:50 | disposition home or self-care (01) ==
PROVIDERS: Emergency Provider Emergency Medicine; Family Provider Internal Medicine Geriatric Medicine; PCP Internal Medicine Cardiovascular Disease
DX: I48.91 Unspecified atrial fibrillation (principal); C34.90 Malignant neoplasm of unspecified part of unspecified bronchus or lung
CPT/HCPCS: 36591; 71275; 80053; 82550; 83880; 84484; 85025; 85610; 85730; 93005; 96374; 99283; 99285; Q9967

== ENCOUNTER → 2018-05-11 11:52 | Outpatient (CLI) | payer MEDICARE, SELFPAY ==
[2018-05-11 12:57] LABS: BUN Creatinine Ratio 22.5 (6-22); Blood Urea Nitrogen 18 mg/dL (9-20); Carbon Dioxide 34 mmol/L (22-32); Chloride 97 mmol/L (98-107); Estimated Glomerular Filt Rate > 60.0 mL/min (>60); Glucose 100 mg/dL (80-110); HEMOLYSIS < 15 (0-50); Sodium 140 mmol/L (137-145)
== END ==
PROVIDERS: Family Provider Internal Medicine Geriatric Medicine; Visit Provider Internal Medicine
DX: I50.42 Chronic combined systolic (congestive) and diastolic (congestive) heart failure (principal)
CPT/HCPCS: 36415; 80048

== ENCOUNTER 2018-08-22 08:40 | Emergency (ER) | payer MEDICARE, SELFPAY ==
[2018-08-22 08:46] VITALS: BP 100/57; PULSE 86; RESP 15; TEMP 36.5; O2SAT 95; BMI 27.1
--- NOTE | 2018-08-22 09:01 | DI.CT.S_ITS ---
PROCEDURE: CT HEAD/BRAIN WO CON INDICATIONS: mets to brain, slurring of speech and syncope TECHNIQUE: Noncontrast 4.5 mm thick angled axial sections acquired from the foramen magnum to the vertex, with coronal and sagittal reformats. For radiation dose reduction, the following was used: automated exposure control, adjustment of mA and/or kV according to patient size. COMPARISON: None. FINDINGS: Image quality: Excellent. CSF spaces: Basal cisterns are patent. No extra-axial fluid collections. The ventricles are symmetric in size and shape. Brain: No intracranial bleeds or masses. There is cerebral volume loss for age, with resultant ventricular and sulcal prominence. There is a moderate-sized area of edema in the inferior left cerebellar hemisphere as well as small focal hypodensity peripherally in left cerebellum. Additionally, there is a focal area of cortical volume loss in the posterior right parietal region. Elsewhere, there are mild to moderate periventricular and deep white matter chronic small vessel ischemic changes. There is intracranial internal carotid artery atherosclerosis. Skull and face: Calvarium and visualized facial bones appear intact, without suspicious lesions. Sinuses: Lobulated mucosal thickening in both maxillary sinuses without acute air-fluid level. Mild thickening throughout the ethmoid air cells.. IMPRESSION: 1. Ill-definition and left inferior cerebellar hemisphere suspicious for edema and potentially acute infarct versus underlying lesion. 2. Focal area of right cortical hypodensity/volume loss superimposed on a background of mild to moderate chronic small vessel ischemic changes. Chronicity is uncertain. Comparison to prior studies is recommended and/or MRI of the brain to assess for acute ischemia. Dictated by: Rosalie Torres M.D. on 08/22/2018 at 9:12 Approved by: Rosalie Torres M.D. on 08/22/2018 at 9:19
[2018-08-22] MEDS: ONDANSETRON 4 MG/2 ML INJ IV (09:09)
[2018-08-22] MEDS: SODIUM CHLORIDE 0.9% 1,000 ML 1000 ML IV (09:14)
--- NOTE | 2018-08-22 09:49 | ED_ITS ---
HPI - Altered Mental Status General Chief Complaint: Altered Mental Status Stated Complaint: CA Mets to brain Time Seen by Provider: 08/22/18 08:48 Source: patient, family, EMS and old records reviewed Mode of arrival: EMS Limitations: no limitations History of Present Illness HPI narrative: The patient is a 77-year-old male with history of lung cancer metastatic to the brain. He is presenting with hypotension. States that he took Dilaudid which she normally does last night however the nausea he tried cannabis for the 1st time. He did not pass out but was unable to get up his EMS found blood pressure to be systolic in the 50s. It recovered quickly with IV fluids. states that he still has some slurring of speech. He is able to move all of his extremities he denies any headache. He overall is much more awake and talking was previously. He has not had any fever. MD complaint: decreased responsiveness Related Data Home Medications Medication Instructions Recorded Confirmed levothyroxine [Synthroid] 125 mcg PO DAILY #0 05/02/17 08/22/18 metformin [Glucophage] 1,000 mg PO QAM #0 05/02/17 08/22/18 albuterol sulfate [ProAir HFA] 2 puff INHALATION Q6H PRN 04/10/18 08/22/18 atorvastatin 10 mg PO QPM 04/10/18 08/22/18 dorzolamide-timolol 1 drp OPHTHALMIC (EYE) BID 04/10/18 08/22/18 ketoconazole 1 applic TOPICAL BID 04/10/18 08/22/18 latanoprost 1 drp OPHTHALMIC (EYE) BEDTIME 04/10/18 08/22/18 metoclopramide HCl 10 mg PO TID 04/10/18 08/22/18 metronidazole 1 applic TOPICAL BID 04/10/18 08/22/18 omeprazole 40 mg PO DAILY 04/10/18 08/22/18 sennosides [senna] 17.2 mg PO BEDTIME PRN MDD 2 tabs 04/10/18 08/22/18 CoQ-10 300 mg PO DAILY 08/22/18 08/22/18 aspirin 325 mg PO DAILY 08/22/18 08/22/18 carvedilol 12.5 mg PO BID 08/22/18 08/22/18 cholecalciferol (vitamin D3) 5,000 unit PO DAILY 08/22/18 08/22/18 [Vitamin D3] docusate sodium [Stool Softener] 250 mg PO BID 08/22/18 08/22/18 doxazosin 4 mg PO DAILY 08/22/18 08/22/18 ferrous sulfate [iron] 325 mg PO DAILY 08/22/18 08/22/18 furosemide 40 mg PO BID 08/22/18 08/22/18 hydromorphone 4 mg PO TID-QID PRN 08/22/18 08/22/18 ketoconazole 1 applic TOPICAL DIRECTED 08/22/18 08/22/18 lisinopril 5 mg PO DAILY 08/22/18 08/22/18 lorazepam 1 mg PO BEDTIME PRN 08/22/18 08/22/18 magnesium oxide 400 mg PO DAILY 08/22/18 08/22/18 metformin 500 mg PO QPM 08/22/18 08/22/18 niacin 500 mg PO DAILY 08/22/18 08/22/18 potassium chloride 20 meq PO BID 08/22/18 08/22/18 ropinirole 0.5 mg PO BEDTIME 08/22/18 08/22/18 ropinirole 2 mg PO BEDTIME 08/22/18 08/22/18 Allergies Allergy/AdvReac Type Severity Reaction Status Date / Time metoprolol [METOPROLOL] AdvReac Severe FATIGUE Verified 08/22/18 08:46 pravastatin [PRAVASTATIN] AdvReac Severe ARTHALGIAS Verified 08/22/18 08:46 Review of Systems Review of Systems ROS Unobtainable: All systems reviewed & are unremarkable except as noted in HPI and below Constitutional Denies chills, Denies fever(s), Denies lethargy and Denies weakness Eyes Denies change in vision, Denies eye discharge, Denies irritation and Denies loss of vision ENT Ears, Nose, Mouth, and Throat: Denies change in voice, Denies neck pain and Denies sore throat Cardiovascular Denies chest pain, Denies irregular heart rhythm, Reports lightheadedness, Denies palpitations, Denies dyspnea, Denies dyspnea on exertion and Denies orthopnea Respiratory Denies cough, Denies dyspnea, Denies dyspnea on exertion and Denies wheezing Gastrointestinal Gastrointestinal: Denies abdominal pain, Denies change in bowel habits, Denies diarrhea, Denies nausea and Denies vomiting Musculoskeletal Denies neck pain Integumentary/Breasts Denies pruritus, Denies erythema, Denies rash and Denies wounds Neurologic Denies loss of vision and Denies weakness Endocrine Denies palpitations Allergic/Immunologic Denies wheezing Exam Initial Vital Signs Initial Vital Signs: Vital Signs Temperature 97.7 F 08/22/18 08:46 Pulse Rate 86 08/22/18 08:46 Respiratory Rate 15 08/22/18 08:46 Blood Pressure 100/57 L 08/22/18 08:46 Pulse Oximetry 95 08/22/18 08:46 GENERAL: Alert weak appearing male answering questions HEENT: Head atraumatic,EOMI, pupils reactive, face symmetric, CARDIOVASCULAR: Regular rate and rhythm without murmurs, rubs or gallops. RESPIRATORY: Breath sounds equal bilaterally, no wheezes rales or rhonchi. ABDOMEN: Soft, nontender. Normoactive bowel sounds all 4 quadrants. No guarding or rebound. EXTREMITIES: Normal range of motion, no clubbing or edema. Neurovascularly intact NEUROLOGICAL: Alert and oriented x4.Normal gait and speech. Cranial nerves II through XII grossly intact. Diabetic Educator strength equal bilaterally extremities stren gth in lower extremities equal some slurring of speech SKIN: Warm, dry, no laceration, no petechiae, no rashes or lesions. Course Orders Ordered: ED Orders 08/22/18 10:40 Basic Metabolic Panel Stat Complete Blood Count AUTO DIFF Stat Discontinued Medications Sodium Chloride (Normal Saline 0.9%) 1,000 mls @ 1,000 mls/hr IV BOLUS ONE Stop: 08/22/18 09:49 Last Infusion: 08/22/18 10:38 Dose: 0 mls/hr Admin: 08/22/18 09:14 Dose: 1,000 mls/hr Ondansetron HCl (Zofran) 4 mg IV NOW ONE Stop: 08/22/18 08:51 Last Admin: 08/22/18 09:09 Dose: 4 mg Vital Signs - 8 hr 08/22/18 11:12 Pulse Rate 64 Respiratory Rate 16 Blood Pressure [Left Arm] 115/58 L Pulse Oximetry 97 MDM - Altered Mental Status Lab Data Attestation: I reviewed the patient's lab results. Result diagrams: 08/22/18 10:40 08/22/18 10:40 Lab Results 08/22/18 08/22/18 Range/Units 10:40 10:40 WBC 5.3 (4.5-11.0) X10^3/uL RBC 4.06 L (4.5-5.9) X10^6/uL Hgb 11.4 L (13.5-17.5) g/dL Hct 33.5 L (41-53) % MCV 82.6 (80-100) fL MCH 28.1 (26-34) PG MCHC 34.1 (30-36) % RDW 17.4 H (11.6-14.8) % Plt Count 153 (150-400) X10^3/uL Neut % (Auto) 88.4 H (50-75) % Lymph % (Auto) 5.5 L (25-40) % [place] % (Auto) 4.7 (3-14) % Eos % (Auto) 0.8 L (2-4) % Baso % (Auto) 0.6 (0-2) % Neut # (Auto) 4700 (0408-0612) /uL Lymph # (Auto) 300 L (7897-1013) /uL [place] # (Auto) 200 (0-900) /uL Eos # (Auto) 0 (0-450) /uL Baso # (Auto) 0 (0-100) /uL Sodium 136 L (137-145) mmol/L Potassium 4.1 (3.4-5.1) mmol/L Chloride 100 (98-107) mmol/L Carbon Dioxide 30 (22-32) mmol/L BUN 18 (9-20) mg/dL Creatinine 0.90 (0.66-1.25) mg/dL Estimated GFR > 60.0 (>60) mL/min BUN/Creatinine Ratio 20.0 (6-22) Glucose 108 (80-110) mg/dL Calcium 8.5 (8.4-10.2) mg/dL Imaging Data CT scan - head: Radiologist's impression: PROCEDURE: CT HEAD/BRAIN WO CON INDICATIONS: mets to brain, slurring of speech and syncope TECHNIQUE: Noncontrast 4.5 mm thick angled axial sections acquired from the foramen magnum to the vertex, with coronal and sagittal reformats. For radiation dose reduction, the following was used: automated exposure control, adjustment of mA and/or kV according to p atient size. COMPARISON: None. FINDINGS: Image quality: Excellent. CSF spaces: Basal cisterns are patent. No extra-axial fluid collections. The ventricles are symmetric in size and shape. Brain: No intracranial bleeds or masses. There is cerebral volume loss for age, with resultant ventricular and sulcal prominence. There is a moderate-sized area of edema in the inferior left cerebellar hemisphere as well as small focal hypodensity peripherally in left cerebellum. Additionally, there is a focal area of cortical volume loss in the posterior right parietal region. Elsewhere, there are mild to moderate periventricular and deep white matter chronic small vessel ischemic changes. There is intracranial internal carotid artery atherosclerosis. Skull and face: Calvarium and visualized facial bones appear intact, without suspicious lesions. Sinuses: Lobulated mucosal thickening in both maxillary sinuses without acute air-fluid level. Mild thickening throughout the ethmoid air cells.. IMPRESSION: 1. Ill-definition and left inferior cerebellar hemisphere suspicious for edema and potentially acute infarct versus underlying lesion. 2. Focal area of right cortical hypodensity/volume loss superimposed on a background of mild to moderate chronic small vessel ischemic changes. Chronicity is uncertain. Comparison to prior studies is recommended and/or MRI of the brain to assess for acute ischemia. Dictated by: Rosalie Torres M.D. on 08/22/2018 at 9:12 MDM Narrative Medical decision making narrative: Patient overall is feeling much better. Blood work is reassuring. His speech is much improved. CT does not show any acute all bleeding. I have gone over with patient and son a specific instructions on when to return to the ED. Patient is followed closely with [facility]. At this time patient is requesting to go home. Discharge Plan Departure Patient Disposition: Home Clinical Impression: Orthostatic hypotension Discharge Date/Time: 08/22/18 11:34 Interventions: ED Discharge Assessment Last Done: 08/22/18 11:23 Instructions: DI for Orthostatic Hypotension Activity Restrictions/Additional Instructions: *You have been diagnosed with orthostatic hypotension *What to do: Unclear exactly what cause of low blood pressure but likely few days of nausea and vomiting. All extra lytes are reassuring no significant dehydration. Increase fluid intake today with Gatorade or Gatorade like substance *Continue to take medications as directed *Follow up with your primary care provider in 2-3 days *Return to ER if you should have a blood pressure with systolic less than 80, weakness, confusion or any new, worsening or concerning symptoms Prescriptions: No Action levothyroxine [Synthroid] 125 MCG tablet 125 mcg PO DAILY Qty: 0 RF: 0 metformin [Glucophage] 500 MG tablet 1,000 mg PO QAM Qty: 0 RF: 0 latanoprost 0.005 % drops 1 drp ophthalmic (eye) BEDTIME RF: 0 sennosides [senna] 8.6 mg tablet 17.2 mg PO BEDTIME MDD 2 tabs PRN (Reason: Constipation) RF: 0 omeprazole 40 mg capsule,delayed release(DR/EC) 40 mg PO DAILY RF: 0 metronidazole 0.75 % cream 1 applic Topical BID RF: 0 dorzolamide-timolol 22.3-6.8 mg/mL drops 1 drp ophthalmic (eye) BID RF: 0 albuterol sulfate [ProAir HFA] 90 mcg/actuation HFA aerosol inhaler 2 puff Inhalation Q6H PRN (Reason: Shortness Of Breath) RF: 0 ketoconazole 2 % cream 1 applic Topical BID RF: 0 metoclopramide HCl 10 mg tablet 10 mg PO TID RF: 0 atorvastatin 10 mg tablet 10 mg PO QPM RF: 0 furosemide 40 mg tablet 40 mg PO BID RF: 0 metformin 500 mg tablet 500 mg PO QPM RF: 0 carvedilol 12.5 mg tablet 12.5 mg PO BID RF: 0 aspirin 325 mg Tablet 325 mg PO DAILY RF: 0 ropinirole 2 mg tablet 2 mg PO BEDTIME RF: 0 ferrous sulfate [iron] 325 mg (65 mg iron) Tablet 325 mg PO DAILY RF: 0 ropinirole 0.5 mg tablet 0.5 mg PO BEDTIME RF: 0 niacin 500 mg Tablet 500 mg PO DAILY RF: 0 doxazosin 4 mg tablet 4 mg PO DAILY RF: 0 lisinopril 5 mg tablet 5 mg PO DAILY RF: 0 lorazepam 1 mg tablet 1 mg PO BEDTIME PRN (Reason: Anxiety) RF: 0 docusate sodium [Stool Softener] 250 mg Capsule 250 mg PO BID RF: 0 hydromorphone 4 mg tablet 4 mg PO TID-QID PRN (Reason: pain) RF: 0 cholecalciferol (vitamin D3) [Vitamin D3] 5,000 unit Tablet 5,000 unit PO DAILY RF: 0 potassium chloride 20 mEq Tablet Extended Release 20 meq PO BID RF: 0 magnesium oxide 400 mg magnesium Tablet 400 mg PO DAILY RF: 0 CoQ-10 300 mg capsule 300 mg PO DAILY RF: 0 ketoconazole 1 applic topical DIRECTED RF: 0 Referrals: Allen Zaragoza MD [Primary Care Provider] -
[2018-08-22 10:45] LABS: Add Manual Diff / Slide Review NO; Basophils Absolute Auto 0 /uL (0-100); Basophils Percent Auto 0.6 % (0-2); Eosinophils Absolute Auto 0 /uL (0-450); Eosinophils Percent Auto 0.8 % (2-4); Hematocrit 33.5 % (41-53); Hemoglobin 11.4 g/dL (13.5-17.5); Lymphocytes Absolute Auto 300 /uL (1100-4500); Lymphocytes Percent Auto 5.5 % (25-40); Mean Corpuscular HGB Conc 34.1 % (30-36); Mean Corpuscular Hemoglobin 28.1 PG (26-34); Mean Corpuscular Volume 82.6 fL (80-100); Monocytes Absolute Auto 200 /uL (0-900); Monocytes Percent Auto 4.7 % (3-14); Neutrophils Absolute Auto 4700 /uL (1500-7000); Neutrophils Percent Auto 88.4 % (50-75); Platelet Count 153 X10^3/uL (150-400); Red Blood Cell Count 4.06 X10^6/uL (4.5-5.9); Red Cell Distribution Width 17.4 % (11.6-14.8); White Blood Cell Count 5.3 X10^3/uL (4.5-11.0)
[2018-08-22 10:58] LABS: Blood Urea Nitrogen 18 mg/dL (9-20); Calcium 8.5 mg/dL (8.4-10.2); Carbon Dioxide 30 mmol/L (22-32); Chloride 100 mmol/L (98-107); Estimated Glomerular Filt Rate > 60.0 mL/min (>60); Glucose 108 mg/dL (80-110); HEMOLYSIS 16 (0-50); Potassium 4.1 mmol/L (3.4-5.1); Sodium 136 mmol/L (137-145)
[2018-08-22 11:12] VITALS: BP 115/58; PULSE 64; RESP 16; O2SAT 97
== END 2018-08-22 11:34 | disposition home or self-care (01) ==
PROVIDERS: Emergency Provider Emergency Medicine; Family Provider Internal Medicine Geriatric Medicine; PCP Internal Medicine Cardiovascular Disease
DX: I95.1 Orthostatic hypotension (principal); R47.81 Slurred speech
CPT/HCPCS: 70450; 80048; 85025; 96361; 96374; 99283; 99284; J2405

== ENCOUNTER 2018-10-01 12:02 | Emergency (ER) | payer MEDICARE, SELFPAY ==
--- NOTE | 2018-10-01 12:23 | ED.GENADULT ---
HPI - General Adult General Chief complaint: Altered Mental Status Stated complaint: Confusion from brain cancer Time Seen by Provider: 10/01/18 12:23 Source: patient and family Mode of arrival: wheelchair Limitations: no limitations History of Present Illness HPI narrative: Patient is a 77-year-old male with a known history of metastatic lung cancer to his brain. He is currently under the care of [facility]. According to his family over the past several days the patient has had worse balance issues than normal. They state that he has been somewhat more confused than normal. They contacted their oncologist who told them to come to the emergency department to get ?basic labs ?and a head CT completed. The patient states that he has no symptoms. Related Data Home Medications Medication Instructions Recorded Confirmed levothyroxine [Synthroid] 125 mcg PO DAILY #0 05/02/17 10/01/18 metformin [Glucophage] 1,000 mg PO QAM #0 05/02/17 10/01/18 albuterol sulfate [ProAir HFA] 2 puff INHALATION Q6H PRN 04/10/18 10/01/18 atorvastatin 10 mg PO BEDTIME 04/10/18 10/01/18 dorzolamide-timolol 1 drp OPHTHALMIC (EYE) BID 04/10/18 10/01/18 ketoconazole 1 applic TOPICAL BID 04/10/18 10/01/18 latanoprost 1 drp OPHTHALMIC (EYE) BEDTIME 04/10/18 10/01/18 metoclopramide HCl 10 mg PO Q6H PRN 04/10/18 10/01/18 metronidazole 1 applic TOPICAL BID 04/10/18 10/01/18 omeprazole 40 mg PO DAILY 04/10/18 10/01/18 sennosides [senna] 17.2 mg PO BEDTIME PRN MDD 2 tabs 04/10/18 10/01/18 CoQ-10 300 mg PO DAILY 08/22/18 10/01/18 aspirin 325 mg PO DAILY 08/22/18 10/01/18 carvedilol 12.5 mg PO BID 08/22/18 10/01/18 cholecalciferol (vitamin D3) 5,000 unit PO DAILY 08/22/18 10/01/18 [Vitamin D3] doxazosin 4 mg PO DAILY 08/22/18 10/01/18 ferrous sulfate [iron] 325 mg PO DAILY 08/22/18 10/01/18 furosemide 40 mg PO DAILY 08/22/18 10/01/18 lorazepam 1 mg PO BEDTIME PRN 08/22/18 10/01/18 metformin 500 mg PO QPM 08/22/18 10/01/18 niacin 500 mg PO DAILY 08/22/18 10/01/18 ropinirole 0.5 mg PO BEDTIME PRN 08/22/18 10/01/18 ropinirole 2 mg PO BEDTIME PRN 08/22/18 10/01/18 escitalopram oxalate 20 mg PO DAILY 10/01/18 10/01/18 lactulose [Generlac] 1 dose PO DIRECTED 10/01/18 10/01/18 magnesium 250 mg PO DAILY 10/01/18 10/01/18 modafinil 200 mg PO DAILY 10/01/18 10/01/18 oxycodone-acetaminophen 1 tab PO Q4H PRN 10/01/18 10/01/18 potassium chloride 10 meq PO BID 10/01/18 10/01/18 prednisone 10 mg PO DAILY 10/01/18 10/01/18 sucralfate 1 g PO QID 10/01/18 10/01/18 testosterone cypionate 200 mg IM QMONTH 10/01/18 10/01/18 Previous Rx's Medication Instructions Recorded dexamethasone [Decadron] 4 mg PO Q6H #28 tab 10/01/18 Allergies Allergy/AdvReac Type Severity Reaction Status Date / Time metoprolol [METOPROLOL] AdvReac Severe FATIGUE Verified 08/22/18 08:46 pravastatin [PRAVASTATIN] AdvReac Severe ARTHALGIAS Verified 08/22/18 08:46 Review of Systems Review of Systems Positive symptoms were reported by the family Constitutional Denies fever(s) and Denies headache(s) ENT Ears, Nose, Mouth, and Throat: Denies vertigo, Denies headache(s) and Reports disequilibrium Cardiovascular Denies chest pain and Denies dyspnea Respiratory Denies dyspnea Gastrointestinal Gastrointestinal: Denies abdominal pain, Denies nausea and Denies vomiting Musculoskeletal Denies myalgias and Denies arthralgias Neurologic Reports abnormal movements, Denies abnormal speech, Reports confusion, Denies vertigo, Denies headache(s), Reports lack of coordination, Reports memory loss and Reports disequilibrium Psychiatric Reports confusion and Reports memory loss [facility] Medical History Atrial fibrillation (Acute) Diabetes (Acute) Lung cancer (Acute) Social History Smoking Status: Former smoker Exam Initial Vital Signs Initial Vital Signs: Vital Signs Pulse Rate 103 H 10/01/18 12:29 Respiratory Rate 18 10/01/18 12:29 Blood Pressure 128/30 L 10/01/18 12:29 Pulse Oximetry 95 10/01/18 12:29 Const General: cooperative, comfortable, well developed, well groomed and No acute distress Orientation: alert, awake and oriented x3 HENMT Head: normal to inspection and normocephalic Resp Effort & Inspection: normal respiratory effort Auscultation: clear to auscultation bilaterally Cardio Rate: tachycardic Rhythm: regular rhythm Pulses: radial pulses present GI Inspection: non-distended Palpation: soft Skin Lesions: no lesions Rashes: no rashes Neuro General: alert and awake Speech: speech normal Motor: muscle tone normal throughout Sensory Exam: no sensory deficits noted Extrem General: normal to inspection and capillary refill normal Psych Appearance: grossly normal and well kempt Scores GCS Casey coma scale eye opening: Spontaneous Casey coma scale verbal response: Orientated [place] coma scale motor response: Obey commands [place] coma scale total score: 15 Course Orders Ordered: ED Orders 10/01/18 12:43 CT head/brain wo con Stat 10/01/18 12:50 Basic Metabolic Panel Stat Complete Blood Count AUTO DIFF Stat Vital Signs - 8 hr 10/01/18 12:29 10/01/18 13:00 10/01/18 14:33 Pulse Rate 103 H 83 Respiratory Rate 18 13 Blood Pressure 128/30 L Blood Pressure [Left Arm] 118/68 156/79 H Pulse Oximetry 95 95 Medical Decision Making Lab Data Lab results reviewed: Yes I reviewed the patient's lab results. Result diagrams: 10/01/18 12:50 10/01/18 12:50 Lab Results 10/01/18 10/01/18 Range/Units 12:50 12:50 WBC 5.1 (4.5-11.0) X10^3/uL RBC 4.69 (4.5-5.9) X10^6/uL Hgb 13.6 (13.5-17.5) g/dL Hct 41.5 (41-53) % MCV 88.4 (80-100) fL MCH 29.1 (26-34) PG MCHC 32.9 (30-36) % RDW 16.8 H (11.6-14.8) % Plt Count 177 (150-400) X10^3/uL Neut % (Auto) 82.4 H (50-75) % Lymph % (Auto) 9.8 L (25-40) % [place] % (Auto) 5.5 (3-14) % Eos % (Auto) 1.4 L (2-4) % Baso % (Auto) 0.9 (0-2) % Neut # (Auto) 4200 (8370-9881) /uL Lymph # (Auto) 500 L (3449-7432) /uL [place] # (Auto) 300 (0-900) /uL Eos # (Auto) 100 (0-450) /uL Baso # (Auto) 0 (0-100) /uL Sodium 137 (137-145) mmol/L Potassium 3.5 (3.4-5.1) mmol/L Chloride 96 L (98-107) mmol/L Carbon Dioxide 29 (22-32) mmol/L BUN 25 H (9-20) mg/dL Creatinine 0.60 L (0.66-1.25) mg/dL Estimated GFR > 60.0 (>60) mL/min BUN/Creatinine Ratio 41.7 H (6-22) Glucose 155 H (80-110) mg/dL Calcium 8.9 (8.4-10.2) mg/dL Imaging Data CT scan - head: Radiologist's impression: [address] [address] [address] Scan Report Signed Patient: Michele Barroso CMR#: [id number] : 3Acct:[id number] Age/Sex: 77 / MDate of Service: 10/01/18 Loc: ED Accession Number: [id number] Procedure: CT head/brain wo con Ordering Provider: Luther Montana D.O. PROCEDURE: CT HEAD/BRAIN WO CON INDICATIONS: Balance issues TECHNIQUE: Noncontrast 4.5 mm thick angled axial sections acquired from the foramen magnum to the vertex, with coronal and sagittal reformats. For radiation dose reduction, the following was used: automated exposure control, adjustment of mA and/or kV according to patient size. COMPARISON: [facility], CT, CT HEAD/BRAIN WO CON, 08/22/2018, 8:57. FINDINGS: Image quality: Excellent. CSF spaces: Basal cisterns are patent. No extra-axial fluid collections. The ventricles are symmetric in size and shape. Brain: No intracranial bleeds.there is an approximately 3.2 x 2.0 x 2.0 cm left parietal metastatic lesion with adjacent vasogenic edema which has increased in size compared with recent . There is a small, approximately 0.8 cm mass with adjacent vasogenic edema in the left cerebellar hemisphere. There is a small, approximately 0.9 cm diameter mass in the left occipital lobe with associated vasogenic edema. There is cerebral volume loss for age, with resultant ventricular and sulcal prominence. There are periventricular and deep white matter chronic small vessel ischemic changes. There is intracranial internal carotid artery atherosclerosis. Skull and face: Calvarium and visualized facial bones appear intact, without suspicious lesions. Sinuses: The visualized paranasal sinuses are clear. Scattered opacities noted in the mastoid air cells bilaterally, left greater than right. IMPRESSION: 1. Multiple metastatic lesions which have increased in size compared to recent 08/22/2018. There is increased vasogenic edema associated with the metastatic lesions compared with the prior examination. 2. No intracranial hemorrhage. 3. No midline shift. The basilar cisterns remain patent. Dictated by: Azra Driscoll MD, PhD on 10/01/2018 at 13:36 Approved by: Azra Driscoll MD, PhD on 10/01/2018 at 13:44 [facility] Narrative Medical decision making narrative: Do not have a metabolic reason for the patient's presenting symptoms. His head CT does show enlargement of the known metastatic disease with what appears to be swelling. This is comparison to an EKG from July. I did discuss the case with who is the patient's oncologist from the [facility]. He recommended that we start the patient on dexamethasone. They will follow up with the patient in the next couple days. I did discuss this with the patient's family. They expressed understanding and agreement with plan. Discharge Plan Departure Patient Disposition: Home Clinical Impression: Lung cancer Qualifiers: Laterality: unspecified laterality Lung location: unspecified part of lung Qualified Code(s): C34.90 - Malignant neoplasm of unspecified part of unspecified bronchus or lung Discharge Date/Time: 10/01/18 15:05 Interventions: ED Discharge Assessment Last Done: 10/01/18 16:13 Activity Restrictions/Additional Instructions: Were going to start Edward on a dose of steroids. Please continue all of his other medications as directed. Contact his oncologist tomorrow for a follow-up. Return to the emergency department for any new or worsening symptoms Prescriptions: New dexamethasone [Decadron] 4 mg tablet 4 mg PO Q6H Qty: 28 RF: 0 No Action levothyroxine [Synthroid] 125 MCG tablet 125 mcg PO DAILY Qty: 0 RF: 0 metformin [Glucophage] 500 MG tablet 1,000 mg PO QAM Qty: 0 RF: 0 latanoprost 0.005 % drops 1 drp ophthalmic (eye) BEDTIME RF: 0 sennosides [senna] 8.6 mg tablet 17.2 mg PO BEDTIME MDD 2 tabs PRN (Reason: Constipation) RF: 0 omeprazole 40 mg capsule,delayed release(DR/EC) 40 mg PO DAILY RF: 0 metronidazole 0.75 % cream 1 applic Topical BID RF: 0 dorzolamide-timolol 22.3-6.8 mg/mL drops 1 drp ophthalmic (eye) BID RF: 0 albuterol sulfate [ProAir HFA] 90 mcg/actuation HFA aerosol inhaler 2 puff Inhalation Q6H PRN (Reason: Shortness Of Breath) RF: 0 ketoconazole 2 % cream 1 applic Topical BID RF: 0 metoclopramide HCl 10 mg tablet 10 mg PO Q6H PRN (Reason: Nausea) RF: 0 atorvastatin 10 mg tablet 10 mg PO BEDTIME RF: 0 prednisone 10 mg tablet 10 mg PO DAILY RF: 0 sucralfate 1 gram tablet 1 g PO QID RF: 0 modafinil 200 mg tablet 200 mg PO DAILY RF: 0 oxycodone-acetaminophen 10-325 mg tablet 1 tab PO Q4H PRN (Reason: pain) RF: 0 testosterone cypionate 200 mg/mL oil 200 mg IM QMONTH RF: 0 escitalopram oxalate 20 mg tablet 20 mg PO DAILY RF: 0 lactulose [Generlac] 10 gram/15 mL solution 1 dose PO DIRECTED RF: 0 potassium chloride 10 mEq capsule, extended release 10 meq PO BID RF: 0 magnesium 250 mg Tablet 250 mg PO DAILY RF: 0 furosemide 40 mg tablet 40 mg PO DAILY RF: 0 metformin 500 mg tablet 500 mg PO QPM RF: 0 carvedilol 12.5 mg tablet 12.5 mg PO BID RF: 0 aspirin 325 mg Tablet 325 mg PO DAILY RF: 0 ropinirole 2 mg tablet 2 mg PO BEDTIME PRN (Reason: parkinsons) RF: 0 ferrous sulfate [iron] 325 mg (65 mg iron) Tablet 325 mg PO DAILY RF: 0 ropinirole 0.5 mg tablet 0.5 mg PO BEDTIME PRN (Reason: parkinsons) RF: 0 niacin 500 mg Tablet 500 mg PO DAILY RF: 0 doxazosin 4 mg tablet 4 mg PO DAILY RF: 0 lorazepam 1 mg tablet 1 mg PO BEDTIME PRN (Reason: Anxiety) RF: 0 cholecalciferol (vitamin D3) [Vitamin D3] 5,000 unit Tablet 5,000 unit PO DAILY RF: 0 CoQ-10 300 mg capsule 300 mg PO DAILY RF: 0 Referrals: Allen Zaragoza MD [Primary Care Provider] -
[2018-10-01 12:29] VITALS: BP 128/30; PULSE 103; RESP 18; O2SAT 95
--- NOTE | 2018-10-01 12:43 | DI.CT.S_ITS ---
PROCEDURE: CT HEAD/BRAIN WO CON INDICATIONS: Balance issues TECHNIQUE: Noncontrast 4.5 mm thick angled axial sections acquired from the foramen magnum to the vertex, with coronal and sagittal reformats. For radiation dose reduction, the following was used: automated exposure control, adjustment of mA and/or kV according to patient size. COMPARISON: Located Within [facility], CT, CT HEAD/BRAIN WO CON, 08/22/2018, 8:57. FINDINGS: Image quality: Excellent. CSF spaces: Basal cisterns are patent. No extra-axial fluid collections. The ventricles are symmetric in size and shape. Brain: No intracranial bleeds.there is an approximately 3.2 x 2.0 x 2.0 cm left parietal metastatic lesion with adjacent vasogenic edema which has increased in size compared with recent . There is a small, approximately 0.8 cm mass with adjacent vasogenic edema in the left cerebellar hemisphere. There is a small, approximately 0.9 cm diameter mass in the left occipital lobe with associated vasogenic edema. There is cerebral volume loss for age, with resultant ventricular and sulcal prominence. There are periventricular and deep white matter chronic small vessel ischemic changes. There is intracranial internal carotid artery atherosclerosis. Skull and face: Calvarium and visualized facial bones appear intact, without suspicious lesions. Sinuses: The visualized paranasal sinuses are clear. Scattered opacities noted in the mastoid air cells bilaterally, left greater than right. IMPRESSION: 1. Multiple metastatic lesions which have increased in size compared to recent 08/22/2018. There is increased vasogenic edema associated with the metastatic lesions compared with the prior examination. 2. No intracranial hemorrhage. 3. No midline shift. The basilar cisterns remain patent. Dictated by: Azra Driscoll MD, PhD on 10/01/2018 at 13:36 Approved by: Azra Driscoll MD, PhD on 10/01/2018 at 13:44
[2018-10-01 12:57] LABS: Add Manual Diff / Slide Review NO; Basophils Absolute Auto 0 /uL (0-100); Basophils Percent Auto 0.9 % (0-2); Eosinophils Absolute Auto 100 /uL (0-450); Eosinophils Percent Auto 1.4 % (2-4); Hematocrit 41.5 % (41-53); Hemoglobin 13.6 g/dL (13.5-17.5); Lymphocytes Absolute Auto 500 /uL (1100-4500); Lymphocytes Percent Auto 9.8 % (25-40); Mean Corpuscular HGB Conc 32.9 % (30-36); Mean Corpuscular Hemoglobin 29.1 PG (26-34); Mean Corpuscular Volume 88.4 fL (80-100); Monocytes Absolute Auto 300 /uL (0-900); Monocytes Percent Auto 5.5 % (3-14); Neutrophils Absolute Auto 4200 /uL (1500-7000); Neutrophils Percent Auto 82.4 % (50-75); Platelet Count 177 X10^3/uL (150-400); Red Blood Cell Count 4.69 X10^6/uL (4.5-5.9); Red Cell Distribution Width 16.8 % (11.6-14.8); White Blood Cell Count 5.1 X10^3/uL (4.5-11.0)
[2018-10-01 13:00] VITALS: BP 118/68
[2018-10-01 13:06] LABS: BUN Creatinine Ratio 41.7 (6-22); Blood Urea Nitrogen 25 mg/dL (9-20); Calcium 8.9 mg/dL (8.4-10.2); Carbon Dioxide 29 mmol/L (22-32); Chloride 96 mmol/L (98-107); Estimated Glomerular Filt Rate > 60.0 mL/min (>60); Glucose 155 mg/dL (80-110); HEMOLYSIS < 15 (0-50); Potassium 3.5 mmol/L (3.4-5.1); Sodium 137 mmol/L (137-145)
--- NOTE | 2018-10-01 13:33 | PC.NURSE ---
Pt here for periodic altered mental status. Patient is AOx4 at this time, pt complains of mild back pain unrelated to his cancer he says.
[2018-10-01 14:33] VITALS: BP 156/79; PULSE 83; RESP 13; O2SAT 95
== END 2018-10-01 15:05 | disposition home or self-care (01) ==
PROVIDERS: Emergency Provider Emergency Medicine; Family Provider Internal Medicine Geriatric Medicine; PCP Internal Medicine Cardiovascular Disease
DX: C34.90 Malignant neoplasm of unspecified part of unspecified bronchus or lung (principal); R41.0 Disorientation, unspecified; R26.81 Unsteadiness on feet
CPT/HCPCS: 36591; 70450; 80048; 85025; 99282; 99284

== ENCOUNTER 2018-10-07 09:56 | Inpatient (IN) | payer MEDICARE, SELFPAY ==
[2018-10-07] VITALS (10 sets, daily range): BP systolic 116–145; BP diastolic 64–83; PULSE 98–113; RESP 16–18; TEMP 35.9–36.4; O2SAT 94–98; BMI 24.5; BMI 25.1
--- NOTE | 2018-10-07 10:26 | DI.RAD.S_ITS ---
PROCEDURE: XR ACUTE ABDOMEN SERIES INDICATIONS: Abdominal pain with no bowel movements TECHNIQUE: One view chest and two views of the abdomen were acquired. COMPARISON: [facility], CT, CT ANGIO CHEST PE PROTOCOL, 04/10/2018, 14:54. [facility], CT, CT ANGIO CHEST PE PROTOCOL, 10/29/2017, 19:36. FINDINGS: Surgical changes and devices: Extensive spine fusion surgery from lower thoracic spine into the pelvis again noted. 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 Heart size is normal. No pleural effusions. No pneumoperitoneum. Abdomen: Bowel gas pattern is abnormal with generalized colonic obstipation. No suspicious calcifications. Visualized solid organ contours appear normal. Bones: No suspicious bony lesions. IMPRESSION: Post radiation change within the chest. Moderate colonic obstipation through the abdomen and pelvis bilaterally. Stable extensive postsurgical change along the low thoracic and lumbosacral spine extending into the pelvis. Dictated by: Mario Gray M.D. on 10/07/2018 at 11:10 Approved by: Mario Gray M.D. on 10/07/2018 at 11:12
--- NOTE | 2018-10-07 10:40 | DI.CT.S_ITS ---
PROCEDURE: CT HEAD/BRAIN WO CON INDICATIONS: mental status change, known mets TECHNIQUE: Noncontrast 4.5 mm thick angled axial sections acquired from the foramen magnum to the vertex, with coronal and sagittal reformats. For radiation dose reduction, the following was used: automated exposure control, adjustment of mA and/or kV according to patient size. COMPARISON: [facility], CT, CT HEAD/BRAIN WO CON, 10/01/2018, 13:17. FINDINGS: Image quality: Excellent. CSF spaces: Basal cisterns are patent. No extra-axial fluid collections. The ventricles are symmetric in size and shape. Brain: No intracranial bleeds or masses. Unchanged appearance of right parietal encephalomalacia. There is cerebral volume loss for age, with resultant ventricular and sulcal prominence. There are periventricular and deep white matter chronic small vessel ischemic changes. There is intracranial internal carotid artery atherosclerosis. Skull and face: Calvarium and visualized facial bones appear intact, without suspicious lesions. Sinuses: Visualized sinuses and mastoids are clear. IMPRESSION: No acute intracranial process. No interval change Dictated by: Emiliano Day M.D. on 10/07/2018 at 10:48 Approved by: Emiliano Day M.D. on 10/07/2018 at 10:56
--- NOTE | 2018-10-07 10:51 | ED.AMS ---
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 Patient returns to the 2nd time in 1 week for mental status change. He was sent by the [facility] for evaluation, stabilization and hopes that he could be admitted with hospice consult. He has stopped eating and drinking, has not had a bowel movement in 5 days, and has exceeded the ability of his family to care for him. He has had no injuries, fever or chills. He was seen on October 01 under similar circumstances and head CT noted some edema around the brain Mets, per phone consultation with Oncology he was started on Decadron which he continues to take. MD complaint: altered mental status and confusion Onset (ago): day(s) Timing confirmed by: spouse and family member Severity: moderate Consistency of symptoms: getting worse Context: history of similar presentation Related Data Home Medications Medication Instructions Recorded Confirmed levothyroxine [Synthroid] 125 mcg PO DAILY #0 05/02/17 10/07/18 metformin [Glucophage] 1,000 mg PO QAM #0 05/02/17 10/07/18 albuterol sulfate [ProAir HFA] 2 puff INHALATION Q6H PRN 04/10/18 10/07/18 atorvastatin 10 mg PO BEDTIME 04/10/18 10/07/18 dorzolamide-timolol 1 drp OPHTHALMIC (EYE) BID 04/10/18 10/07/18 ketoconazole 1 applic TOPICAL BID 04/10/18 10/07/18 latanoprost 1 drp OPHTHALMIC (EYE) BEDTIME 04/10/18 10/07/18 metoclopramide HCl 10 mg PO Q6H PRN 04/10/18 10/07/18 metronidazole 1 applic TOPICAL BID 04/10/18 10/07/18 omeprazole 40 mg PO BID 04/10/18 10/07/18 sennosides [senna] 17.2 mg PO BEDTIME PRN MDD 2 tabs 04/10/18 10/07/18 CoQ-10 300 mg PO DAILY 08/22/18 10/07/18 aspirin 325 mg PO DAILY 08/22/18 10/07/18 carvedilol 12.5 mg PO BID 08/22/18 10/07/18 cholecalciferol (vitamin D3) 5,000 unit PO DAILY 08/22/18 10/07/18 [Vitamin D3] doxazosin 4 mg PO DAILY 08/22/18 10/07/18 ferrous sulfate [iron] 325 mg PO DAILY 08/22/18 10/07/18 furosemide 40 mg PO DAILY 08/22/18 10/07/18 lorazepam 1 mg PO BEDTIME PRN 08/22/18 10/07/18 metformin 500 mg PO QPM 08/22/18 10/07/18 niacin 500 mg PO DAILY 08/22/18 10/07/18 ropinirole 0.5 mg PO BEDTIME PRN 08/22/18 10/07/18 ropinirole 2 mg PO BEDTIME PRN 08/22/18 10/07/18 escitalopram oxalate 20 mg PO DAILY 10/01/18 10/07/18 lactulose [Generlac] 1 dose PO DIRECTED 10/01/18 10/07/18 magnesium 250 mg PO DAILY 10/01/18 10/07/18 modafinil 200 mg PO DAILY 10/01/18 10/07/18 oxycodone-acetaminophen 1 tab PO Q4H PRN 10/01/18 10/07/18 potassium chloride 20 meq PO DAILY 10/01/18 10/07/18 prednisone 10 mg PO DAILY 10/01/18 10/07/18 testosterone cypionate 200 mg IM QMONTH 10/01/18 10/07/18 olanzapine 15 mg PO BEDTIME 10/07/18 10/07/18 Previous Rx's Medication Instructions Recorded dexamethasone [Decadron] 4 mg PO Q6H #28 tab 10/01/18 Allergies Allergy/AdvReac Type Severity Reaction Status Date / Time metoprolol [METOPROLOL] AdvReac Severe FATIGUE Verified 08/22/18 08:46 pravastatin [PRAVASTATIN] AdvReac Severe ARTHALGIAS Verified 08/22/18 08:46 Review of Systems Constitutional Denies chills, Reports fatigue, Denies fever(s), Denies lethargy and Reports weakness Eyes Denies change in vision, Denies eye discharge, Denies irritation and Denies loss of vision ENT Ears, Nose, Mouth, and Throat: Denies change in voice, Denies neck pain and Denies sore throat Cardiovascular Denies chest pain, Denies irregular heart rhythm, Denies lightheadedness, Denies palpitations, Denies dyspnea, Denies dyspnea on exertion and Denies orthopnea Respiratory Denies cough, Denies dyspnea, Denies dyspnea on exertion and Denies wheezing Gastrointestinal Gastrointestinal: Denies abdominal pain, Denies change in bowel habits, Denies diarrhea, Denies nausea and Denies vomiting Genitourinary Denies hematuria, Denies flank pain, Denies urinary incontinence and Denies urinary urgency Musculoskeletal Denies neck pain Integumentary/Breasts Denies pruritus, Denies erythema, Denies rash and Denies wounds Neurologic Reports confusion, Denies loss of vision and Reports weakness Psychiatric Denies anxiety, Reports confusion, Denies depression, Denies homicidal ideation and Denies suicidal ideation Endocrine Reports fatigue and Denies palpitations Hematologic/Lymphatic Denies easy bruising Allergic/Immunologic Denies wheezing Exam Narrative Exam Narrative: GENERAL: 77M pleasantly confused. Slurring words HEAD: Atraumatic. Normocephalic. No temporal or scalp tenderness. EYES: Pupils equal round and reactive. Extraocular motions intact. No scleral icterus. No injection or drainage. ENT: Dry mucous membranes. Nose without bleeding, purulent drainage or septal hematoma. Throat without erythema, tonsillar hypertrophy or exudate. Uvula midline. Airway patent. NECK: Trachea midline. No JVD or lymphadenopathy. Supple, nontender, no meningeal signs. CARDIOVASCULAR: Regular rate and rhythm without murmurs, gallops, or rubs. RESPIRATORY: Clear to auscultation. Breath sounds equal bilaterally. No wheezes, rales, or rhonchi. GASTROINTESTINAL: Abdomen soft, non-tender, nondistended. No hepato-splenomegaly, or palpable masses. No guarding. EXTREMITIES: No clubbing, cyanosis, or edema. No joint tenderness, effusion, or edema noted. BACK: Nontender without deformity or crepitance. No flank tenderness. NEURO: Alert. SKIN: Poor turgor. No rash or erythema. Initial Vital Signs Initial Vital Signs: Vital Signs Temperature 97.4 F L 10/07/18 10:15 Pulse Rate 113 H 10/07/18 10:15 Respiratory Rate 16 10/07/18 10:15 Blood Pressure 126/64 10/07/18 10:15 Pulse Oximetry 94 10/07/18 10:15 Course Orders Ordered: ED Orders 10/07/18 10:26 XR acute abdomen series Stat 10/07/18 10:40 CT head/brain wo con Stat 10/07/18 11:05 Basic Metabolic Panel Stat Complete Blood Count AUTO DIFF Stat Magnesium Routine 10/07/18 12:41 Consult to Intelligence Officer Stat Education, smoking cessation ONGOING 10/07/18 12:45 Consult to Occupational Therapy Evaluate & Treat Consult to Physical Therapy Evaluate & Treat 10/07/18 14:19 Consult to Dietitian, Adult Routine 10/07/18 15:55 Urinalysis and Microscopic Routine Acetaminophen (Tylenol) 650 mg PO Q6HR PRN PRN Reason: As Needed for Fever/Mild Pain Al Hydrox/Mg Hydrox/Simethicone (Maalox Plus) 30 ml PO Q6HR PRN PRN Reason: Dyspepsia Albuterol (Ventolin Hfa) 2 puff INH Q6H PRN PRN Reason: Shortness Of Breath Aspirin (Aspirin) 325 mg PO DAILY [facility] Atorvastatin Calcium (Lipitor) 10 mg PO BEDTIME RAYA Bisacodyl (Dulcolax) 10 mg PO DAILY [facility] Calcium Carbonate (Tums) 1,000 mg PO Q4HR PRN PRN Reason: Dyspepsia Carvedilol (Coreg) 12.5 mg PO BID [facility] Dexamethasone (Decadron) 4 mg PO Q6H [facility] Docusate Sodium (Colace) 100 mg PO BID [facility] Dorzolamide/Timolol (Cosopt Eye Drops) drops EYE-BOTH BID [facility] Doxazosin Mesylate (Cardura) 4 mg PO DAILY [facility] Furosemide (Lasix) 40 mg PO DAILY [facility] Heparin Sodium (Porcine) (Heparin) 5,000 unit SUBCUT BID [facility] Sodium Chloride (Normal Saline 0.9%) 1,000 mls @ 100 mls/hr IV CONT RAYA Last Admin: 10/07/18 13:38 Dose: 100 mls/hr Latanoprost (Xalatan) drops EYE-BOTH BEDTIME [facility] Levothyroxine Sodium (Synthroid) 125 mcg PO DAILY [facility] Lorazepam (Ativan) 1 mg PO BEDTIME PRN PRN Reason: Anxiety Metformin HCl (Glucophage) 1,000 mg PO QAM [facility] Metoclopramide HCl (Reglan) 10 mg PO Q6H PRN PRN Reason: Nausea Non-Formulary Medication (Magnesium) 250 mg PO DAILY [facility] Non-Formulary Medication (Omeprazole) 40 mg PO BID [facility] Non-Formulary Medication (Oxycodone-Acetaminophen) 1 tab PO Q4H PRN PRN Reason: pain Non-Formulary Medication (Metformin) 500 mg PO QPM [facility] Ondansetron HCl (Zofran Odt) 4 mg PO Q8HR PRN PRN Reason: Nausea And Vomiting Ondansetron HCl (Zofran) 4 mg IV Q4H PRN PRN Reason: Nausea And Vomiting Potassium Chloride (Klor-Con M10) 20 meq PO DAILY [facility] Quetiapine Fumarate (Seroquel) 25 mg PO BEDTIME [facility] Ropinirole HCl (Requip) 0.5 mg PO BEDTIME PRN PRN Reason: parkinsons Ropinirole HCl (Requip) 2 mg PO BEDTIME PRN PRN Reason: parkinsons Sennosides (Senna) 17.2 mg PO BEDTIME RAYA Sennosides (Senna) 17.2 mg PO BEDTIME PRN PRN Reason: Constipation Discontinued Medications Bisacodyl (Dulcolax) 10 mg PO DAILY PRN PRN Reason: Constipation Docusate Sodium (Colace) 100 mg PO BID PRN PRN Reason: Constipation Sodium Chloride (Normal Saline 0.9%) 1,000 mls @ 1,000 mls/hr IV BOLUS ONE Stop: 10/07/18 11:25 Last Infusion: 10/07/18 12:11 Dose: 0 mls/hr Admin: 10/07/18 11:44 Dose: 1,000 mls/hr Ondansetron HCl (Zofran) 4 mg IV Q8HR PRN PRN Reason: Nausea And Vomiting Sennosides (Senna) 17.2 mg PO BEDTIME PRN PRN Reason: Constipation Consultations Consultation #1: call to hospitalist, she's happy to accept Time: 18:07 Vital Signs - 8 hr 10/07/18 10:15 10/07/18 10:30 10/07/18 12:54 Temperature 97.4 F L 97.4 F L Pulse Rate 113 H 113 H 98 H Respiratory Rate 16 16 16 Blood Pressure 126/64 Blood Pressure [Left Arm] 125/83 124/64 Pulse Oximetry 94 94 98 10/07/18 13:20 10/07/18 13:30 10/07/18 15:21 Temperature 97.4 F L 97.6 F 97.5 F L Pulse Rate 99 H 100 H 98 H Respiratory Rate 16 16 18 Blood Pressure 126/64 145/72 H 116/70 Blood Pressure [Left Arm] Pulse Oximetry 98 96 96 MDM - Altered Mental Status Differential Diagnosis Likely altered mental status Lab Data Result diagrams: 10/07/18 11:05 10/07/18 11:05 Lab Results 10/07/18 10/07/18 10/07/18 Range/Units 11:05 11:05 11:05 WBC 7.7 (4.5-11.0) X10^3/uL RBC 5.02 (4.5-5.9) X10^6/uL Hgb 14.9 (13.5-17.5) g/dL Hct 43.5 (41-53) % MCV 86.6 (80-100) fL MCH 29.6 (26-34) PG MCHC 34.2 (30-36) % RDW 16.1 H (11.6-14.8) % Plt Count 162 (150-400) X10^3/uL Neut % (Auto) 93.7 H (50-75) % Lymph % (Auto) 2.6 L (25-40) % [place] % (Auto) 3.4 (3-14) % Eos % (Auto) 0.1 L (2-4) % Baso % (Auto) 0.2 (0-2) % Neut # (Auto) 7200 H (8180-3249) /uL Lymph # (Auto) 200 L (4522-8668) /uL [place] # (Auto) 300 (0-900) /uL Eos # (Auto) 0 (0-450) /uL Baso # (Auto) 0 (0-100) /uL Sodium 135 L (137-145) mmol/L Potassium 3.5 (3.4-5.1) mmol/L Chloride 93 L (98-107) mmol/L Carbon Dioxide 35 H (22-32) mmol/L BUN 26 H (9-20) mg/dL Creatinine 0.60 L (0.66-1.25) mg/dL Estimated GFR > 60.0 (>60) mL/min BUN/Creatinine Ratio 43.3 H (6-22) Glucose 229 H (80-110) mg/dL Calcium 9.0 (8.4-10.2) mg/dL Magnesium 2.1 (1.6-2.3) mg/dL Urine Color Urine Appearance Urine pH (4.5-8.0) Ur Specific [place] (1.000-1.035) Urine Protein (Negative) Urine Glucose (UA) (Negative) g/dL Urine Ketones (NEGATIVE) Urine Occult Blood (Negative) Urine Nitrate (Negative) Urine Bilirubin (NEGATIVE) Urine Urobilinogen (0.2) E.U./dL Ur Leukocyte Esterase (NEGATIVE) Urine RBC (0-5/HPF) Urine WBC (0-5/HPF) Ur Squamous Epith Cells (0-5/HPF) Urine Bacteria (None) Ur Culture Indicated? 10/07/18 Range/Units 15:55 WBC (4.5-11.0) X10^3/uL RBC (4.5-5.9) X10^6/uL Hgb (13.5-17.5) g/dL Hct (41-53) % MCV (80-100) fL MCH (26-34) PG MCHC (30-36) % RDW (11.6-14.8) % Plt Count (150-400) X10^3/uL Neut % (Auto) (50-75) % Lymph % (Auto) (25-40) % [place] % (Auto) (3-14) % Eos % (Auto) (2-4) % Baso % (Auto) (0-2) % Neut # (Auto) (7975-4948) /uL Lymph # (Auto) (8687-2660) /uL [place] # (Auto) (0-900) /uL Eos # (Auto) (0-450) /uL Baso # (Auto) (0-100) /uL Sodium (137-145) mmol/L Potassium (3.4-5.1) mmol/L Chloride (98-107) mmol/L Carbon Dioxide (22-32) mmol/L BUN (9-20) mg/dL Creatinine (0.66-1.25) mg/dL Estimated GFR (>60) mL/min BUN/Creatinine Ratio (6-22) Glucose (80-110) mg/dL Calcium (8.4-10.2) mg/dL Magnesium (1.6-2.3) mg/dL Urine Color Yellow Urine Appearance Clear Urine pH 5.5 (4.5-8.0) Ur Specific [place] 1.020 (1.000-1.035) Urine Protein Negative (Negative) Urine Glucose (UA) 2+ H (Negative) g/dL Urine Ketones Negative (NEGATIVE) Urine Occult Blood Negative (Negative) Urine Nitrate Negative (Negative) Urine Bilirubin Negative (NEGATIVE) Urine Urobilinogen 1.0 (0.2) E.U./dL Ur Leukocyte Esterase Negative (NEGATIVE) Urine RBC None seen (0-5/HPF) Urine WBC 1-5/hpf (0-5/HPF) Ur Squamous Epith Cells None seen (0-5/HPF) Urine Bacteria Many (>30) H (None) Ur Culture Indicated? Cult not indicated Imaging Data CT scan - head: Radiologist's impression: PROCEDURE: CT HEAD/BRAIN WO CON INDICATIONS: mental status change, known mets TECHNIQUE: Noncontrast 4.5 mm thick angled axial sections acquired from the foramen magnum to the vertex, with coronal and sagittal reformats. For radiation dose reduction, the following was used: automated exposure control, adjustment of mA and/or kV according to patient size. COMPARISON: [facility], CT, CT HEAD/BRAIN WO CON, 10/01/2018, 13:17. FINDINGS: Image quality: Excellent. CSF spaces: Basal cisterns are patent. No extra-axial fluid collections. The ventricles are symmetric in size and shape. Brain: No intracranial bleeds or masses. Unchanged appearance of right parietal encephalomalacia. There is cerebral volume loss for age, with resultant ventricular and sulcal prominence. There are periventricular and deep white matter chronic small vessel ischemic changes. There is intracranial internal carotid artery atherosclerosis. Skull and face: Calvarium and visualized facial bones appear intact, without suspicious lesions. Sinuses: Visualized sinuses and mastoids are clear. IMPRESSION: No acute intracranial process. No interval change Dictated by: Emiliano Day M.D. on 10/07/2018 at 10:48 Approved by: Emiliano Day M.D. on 10/07/2018 at 10:56 Chest x-ray: Radiologist's impression: [address] [id number] XRay Report Signed Patient: Michele Barroso CMR#: [id number] : 3Acct:[id number] Age/Sex: 77 / MDate of Service: 10/07/18 Loc: ED Accession Number: [id number] Procedure: XR acute abdomen series Ordering Provider: Thompson Johnson D.O. PROCEDURE: XR ACUTE ABDOMEN SERIES INDICATIONS: Abdominal pain with no bowel movements TECHNIQUE: One view chest and two views of the abdomen were acquired. COMPARISON: [facility], CT, CT ANGIO CHEST PE PROTOCOL, 04/10/2018, 14:54. [facility], CT, CT ANGIO CHEST PE PROTOCOL, 10/29/2017, 19:36. FINDINGS: Surgical changes and devices: Extensive spine fusion surgery from lower thoracic spine into the pelvis again noted. 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 Heart size is normal. No pleural effusions. No pneumoperitoneum. Abdomen: Bowel gas pattern is abnormal with generalized colonic obstipation. No suspicious calcifications. Visualized solid organ contours appear normal. Bones: No suspicious bony lesions. IMPRESSION: Post radiation change within the chest. Moderate colonic obstipation through the abdomen and pelvis bilaterally. Stable extensive postsurgical change along the low thoracic and lumbosacral spine extending into the pelvis. Dictated by: Mario Gray M.D. on 10/07/2018 at 11:10 MDM Narrative Medical decision making narrative: elderly gentleman with weakness, falls, and change in appetite presents by EMS. He denies any specific complaint and has no focal findings. Chronic indwelling catheter so possible UTI, LLE is erythematous and warm, negative for DVT, possible cellulitis. Hyponatremia is acute, fluid hydration and close monitoring of lytes. Discharge Plan Departure Patient Disposition: Admitted as Observation Clinical Impression: Adult failure to thrive Discharge Date/Time: 10/07/18 13:22 Interventions: ED Discharge Assessment Last Done: 10/07/18 13:20 Admit Date/Time: 10/07/18 12:59 Admit Provider: Trinh Sheppard
[2018-10-07 11:20] LABS: Add Manual Diff / Slide Review NO; Basophils Absolute Auto 0 /uL (0-100); Basophils Percent Auto 0.2 % (0-2); Eosinophils Absolute Auto 0 /uL (0-450); Eosinophils Percent Auto 0.1 % (2-4); Hematocrit 43.5 % (41-53); Hemoglobin 14.9 g/dL (13.5-17.5); Lymphocytes Absolute Auto 200 /uL (1100-4500); Lymphocytes Percent Auto 2.6 % (25-40); Mean Corpuscular HGB Conc 34.2 % (30-36); Mean Corpuscular Hemoglobin 29.6 PG (26-34); Mean Corpuscular Volume 86.6 fL (80-100); Monocytes Absolute Auto 300 /uL (0-900); Monocytes Percent Auto 3.4 % (3-14); Neutrophils Absolute Auto 7200 /uL (1500-7000); Neutrophils Percent Auto 93.7 % (50-75); Platelet Count 162 X10^3/uL (150-400); Red Blood Cell Count 5.02 X10^6/uL (4.5-5.9); Red Cell Distribution Width 16.1 % (11.6-14.8); White Blood Cell Count 7.7 X10^3/uL (4.5-11.0)
[2018-10-07 11:31] LABS: BUN Creatinine Ratio 43.3 (6-22); Blood Urea Nitrogen 26 mg/dL (9-20); Carbon Dioxide 35 mmol/L (22-32); Chloride 93 mmol/L (98-107); Estimated Glomerular Filt Rate > 60.0 mL/min (>60); Glucose 229 mg/dL (80-110); HEMOLYSIS 26 (0-50); Potassium 3.5 mmol/L (3.4-5.1); Sodium 135 mmol/L (137-145)
--- NOTE | 2018-10-07 11:43 | ED_ITS ---
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 Patient returns to the 2nd time in 1 week for mental status change. He was sent by the [facility] for evaluation, stabilization and hopes that he could be admitted with hospice consult. He has stopped eating and drinking, has not had a bowel movement in 5 days, and has exceeded the ability of his family to care for him. He has had no injuries, fever or chills. He was seen on October 01 under similar circumstances and head CT noted some edema around the brain Mets, per phone consultation with Oncology he was started on Decadron which he continues to take. MD complaint: altered mental status and confusion Onset (ago): day(s) Timing confirmed by: spouse and family member Severity: moderate Consistency of symptoms: getting worse Context: history of similar presentation Related Data Home Medications Medication Instructions Recorded Confirmed levothyroxine [Synthroid] 125 mcg PO DAILY #0 05/02/17 10/07/18 metformin [Glucophage] 1,000 mg PO QAM #0 05/02/17 10/07/18 albuterol sulfate [ProAir HFA] 2 puff INHALATION Q6H PRN 04/10/18 10/07/18 atorvastatin 10 mg PO BEDTIME 04/10/18 10/07/18 dorzolamide-timolol 1 drp OPHTHALMIC (EYE) BID 04/10/18 10/07/18 ketoconazole 1 applic TOPICAL BID 04/10/18 10/07/18 latanoprost 1 drp OPHTHALMIC (EYE) BEDTIME 04/10/18 10/07/18 metoclopramide HCl 10 mg PO Q6H PRN 04/10/18 10/07/18 metronidazole 1 applic TOPICAL BID 04/10/18 10/07/18 omeprazole 40 mg PO BID 04/10/18 10/07/18 sennosides [senna] 17.2 mg PO BEDTIME PRN MDD 2 tabs 04/10/18 10/07/18 CoQ-10 300 mg PO DAILY 08/22/18 10/07/18 aspirin 325 mg PO DAILY 08/22/18 10/07/18 carvedilol 12.5 mg PO BID 08/22/18 10/07/18 cholecalciferol (vitamin D3) 5,000 unit PO DAILY 08/22/18 10/07/18 [Vitamin D3] doxazosin 4 mg PO DAILY 08/22/18 10/07/18 ferrous sulfate [iron] 325 mg PO DAILY 08/22/18 10/07/18 furosemide 40 mg PO DAILY 08/22/18 10/07/18 lorazepam 1 mg PO BEDTIME PRN 08/22/18 10/07/18 metformin 500 mg PO QPM 08/22/18 10/07/18 niacin 500 mg PO DAILY 08/22/18 10/07/18 ropinirole 0.5 mg PO BEDTIME PRN 08/22/18 10/07/18 ropinirole 2 mg PO BEDTIME PRN 08/22/18 10/07/18 escitalopram oxalate 20 mg PO DAILY 10/01/18 10/07/18 lactulose [Generlac] 1 dose PO DIRECTED 10/01/18 10/07/18 magnesium 250 mg PO DAILY 10/01/18 10/07/18 modafinil 200 mg PO DAILY 10/01/18 10/07/18 oxycodone-acetaminophen 1 tab PO Q4H PRN 10/01/18 10/07/18 potassium chloride 20 meq PO DAILY 10/01/18 10/07/18 prednisone 10 mg PO DAILY 10/01/18 10/07/18 testosterone cypionate 200 mg IM QMONTH 10/01/18 10/07/18 olanzapine 15 mg PO BEDTIME 10/07/18 10/07/18 Previous Rx's Medication Instructions Recorded dexamethasone [Decadron] 4 mg PO Q6H #28 tab 10/01/18 Allergies Allergy/AdvReac Type Severity Reaction Status Date / Time metoprolol [METOPROLOL] AdvReac Severe FATIGUE Verified 08/22/18 08:46 pravastatin [PRAVASTATIN] AdvReac Severe ARTHALGIAS Verified 08/22/18 08:46 Review of Systems Constitutional Denies chills, Reports fatigue, Denies fever(s), Denies lethargy and Reports weakness Eyes Denies change in vision, Denies eye discharge, Denies irritation and Denies loss of vision ENT Ears, Nose, Mouth, and Throat: Denies change in voice, Denies neck pain and Denies sore throat Cardiovascular Denies chest pain, Denies irregular heart rhythm, Denies lightheadedness, Denies palpitations, Denies dyspnea, Denies dyspnea on exertion and Denies orthopnea Respiratory Denies cough, Denies dyspnea, Denies dyspnea on exertion and Denies wheezing Gastrointestinal Gastrointestinal: Denies abdominal pain, Denies change in bowel habits, Denies diarrhea, Denies nausea and Denies vomiting Genitourinary Denies hematuria, Denies flank pain, Denies urinary incontinence and Denies urinary urgency Musculoskeletal Denies neck pain Integumentary/Breasts Denies pruritus, Denies erythema, Denies rash and Denies wounds Neurologic Reports confusion, Denies loss of vision and Reports weakness Psychiatric Denies anxiety, Reports confusion, Denies depression, Denies homicidal ideation and Denies suicidal ideation Endocrine Reports fatigue and Denies palpitations Hematologic/Lymphatic Denies easy bruising Allergic/Immunologic Denies wheezing Exam Narrative Exam Narrative: GENERAL: 77M pleasantly confused. Slurring words HEAD: Atraumatic. Normocephalic. No temporal or scalp tenderness. EYES: Pupils equal round and reactive. Extraocular motions intact. No scleral icterus. No injection or drainage. ENT: Dry mucous membranes. Nose without bleeding, purulent drainage or septal hematoma. Throat without erythema, tonsillar hypertrophy or exudate. Uvula midline. Airway patent. NECK: Trachea midline. No JVD or lymphadenopathy. Supple, nontender, no meningeal signs. CARDIOVASCULAR: Regular rate and rhythm without murmurs, gallops, or rubs. RESPIRATORY: Clear to auscultation. Breath sounds equal bilaterally. No wheezes, rales, or rhonchi. GASTROINTESTINAL: Abdomen soft, non-tender, nondistended. No hepato- splenomegaly, or palpable masses. No guarding. EXTREMITIES: No clubbing, cyanosis, or edema. No joint tenderness, effusion, or edema noted. BACK: Nontender without deformity or crepitance. No flank tenderness. NEURO: Alert. SKIN: Poor turgor. No rash or erythema. Initial Vital Signs Initial Vital Signs: Vital Signs Temperature 97.4 F L 10/07/18 10:15 Pulse Rate 113 H 10/07/18 10:15 Respiratory Rate 16 10/07/18 10:15 Blood Pressure 126/64 10/07/18 10:15 Pulse Oximetry 94 10/07/18 10:15 Course Orders Ordered: ED Orders 10/07/18 10:26 XR acute abdomen series Stat 10/07/18 10:40 CT head/brain wo con Stat 10/07/18 11:05 Basic Metabolic Panel Stat Complete Blood Count AUTO DIFF Stat Magnesium Routine 10/07/18 12:41 Consult to Lieutenant/Deputy Stat Education, smoking cessation ONGOING 10/07/18 12:45 Consult to Occupational Therapy Evaluate & Treat Consult to Physical Therapy Evaluate & Treat 10/07/18 14:19 Consult to Dietitian, Adult Routine 10/07/18 15:55 Urinalysis and Microscopic Routine Acetaminophen (Tylenol) 650 mg PO Q6HR PRN PRN Reason: As Needed for Fever/Mild Pain Al Hydrox/Mg Hydrox/Simethicone (Maalox Plus) 30 ml PO Q6HR PRN PRN Reason: Dyspepsia Albuterol (Ventolin Hfa) 2 puff INH Q6H PRN PRN Reason: Shortness Of Breath Aspirin (Aspirin) 325 mg PO DAILY [facility] Atorvastatin Calcium (Lipitor) 10 mg PO BEDTIME RAYA Bisacodyl (Dulcolax) 10 mg PO DAILY [facility] Calcium Carbonate (Tums) 1,000 mg PO Q4HR PRN PRN Reason: Dyspepsia Carvedilol (Coreg) 12.5 mg PO BID [facility] Dexamethasone (Decadron) 4 mg PO Q6H [facility] Docusate Sodium (Colace) 100 mg PO BID [facility] Dorzolamide/Timolol (Cosopt Eye Drops) drops EYE-BOTH BID [facility] Doxazosin Mesylate (Cardura) 4 mg PO DAILY [facility] Furosemide (Lasix) 40 mg PO DAILY [facility] Heparin Sodium (Porcine) (Heparin) 5,000 unit SUBCUT BID [facility] Sodium Chloride (Normal Saline 0.9%) 1,000 mls @ 100 mls/hr IV CONT RAYA Last Admin: 10/07/18 13:38 Dose: 100 mls/hr Latanoprost (Xalatan) drops EYE-BOTH BEDTIME [facility] Levothyroxine Sodium (Synthroid) 125 mcg PO DAILY [facility] Lorazepam (Ativan) 1 mg PO BEDTIME PRN PRN Reason: Anxiety Metformin HCl (Glucophage) 1,000 mg PO QAM [facility] Metoclopramide HCl (Reglan) 10 mg PO Q6H PRN PRN Reason: Nausea Non-Formulary Medication (Magnesium) 250 mg PO DAILY [facility] Non-Formulary Medication (Omeprazole) 40 mg PO BID [facility] Non-Formulary Medication (Oxycodone-Acetaminophen) 1 tab PO Q4H PRN PRN Reason: pain Non-Formulary Medication (Metformin) 500 mg PO QPM [facility] Ondansetron HCl (Zofran Odt) 4 mg PO Q8HR PRN PRN Reason: Nausea And Vomiting Ondansetron HCl (Zofran) 4 mg IV Q4H PRN PRN Reason: Nausea And Vomiting Potassium Chloride (Klor-Con M10) 20 meq PO DAILY [facility] Quetiapine Fumarate (Seroquel) 25 mg PO BEDTIME [facility] Ropinirole HCl (Requip) 0.5 mg PO BEDTIME PRN PRN Reason: parkinsons Ropinirole HCl (Requip) 2 mg PO BEDTIME PRN PRN Reason: parkinsons Sennosides (Senna) 17.2 mg PO BEDTIME RAYA Sennosides (Senna) 17.2 mg PO BEDTIME PRN PRN Reason: Constipation Discontinued Medications Bisacodyl (Dulcolax) 10 mg PO DAILY PRN PRN Reason: Constipation Docusate Sodium (Colace) 100 mg PO BID PRN PRN Reason: Constipation Sodium Chloride (Normal Saline 0.9%) 1,000 mls @ 1,000 mls/hr IV BOLUS ONE Stop: 10/07/18 11:25 Last Infusion: 10/07/18 12:11 Dose: 0 mls/hr Admin: 10/07/18 11:44 Dose: 1,000 mls/hr Ondansetron HCl (Zofran) 4 mg IV Q8HR PRN PRN Reason: Nausea And Vomiting Sennosides (Senna) 17.2 mg PO BEDTIME PRN PRN Reason: Constipation Consultations Consultation #1: call to hospitalist, she's happy to accept Time: 18:07 Vital Signs - 8 hr 10/07/18 10:15 10/07/18 10:30 10/07/18 12:54 Temperature 97.4 F L 97.4 F L Pulse Rate 113 H 113 H 98 H Respiratory Rate 16 16 16 Blood Pressure 126/64 Blood Pressure [Left Arm] 125/83 124/64 Pulse Oximetry 94 94 98 10/07/18 13:20 10/07/18 13:30 10/07/18 15:21 Temperature 97.4 F L 97.6 F 97.5 F L Pulse Rate 99 H 100 H 98 H Respiratory Rate 16 16 18 Blood Pressure 126/64 145/72 H 116/70 Blood Pressure [Left Arm] Pulse Oximetry 98 96 96 MDM - Altered Mental Status Differential Diagnosis Likely altered mental status Lab Data Result diagrams: 10/07/18 11:05 10/07/18 11:05 Lab Results 10/07/18 10/07/18 10/07/18 Range/Units 11:05 11:05 11:05 WBC 7.7 (4.5-11.0) X10^3/uL RBC 5.02 (4.5-5.9) X10^6/uL Hgb 14.9 (13.5-17.5) g/dL Hct 43.5 (41-53) % MCV 86.6 (80-100) fL MCH 29.6 (26-34) PG MCHC 34.2 (30-36) % RDW 16.1 H (11.6-14.8) % Plt Count 162 (150-400) X10^3/uL Neut % (Auto) 93.7 H (50-75) % Lymph % (Auto) 2.6 L (25-40) % Harper % (Auto) 3.4 (3-14) % Eos % (Auto) 0.1 L (2-4) % Baso % (Auto) 0.2 (0-2) % Neut # (Auto) 7200 H (9325-0520) /uL Lymph # (Auto) 200 L (8692-2247) /uL Harper # (Auto) 300 (0-900) /uL Eos # (Auto) 0 (0-450) /uL Baso # (Auto) 0 (0-100) /uL Sodium 135 L (137-145) mmol/L Potassium 3.5 (3.4-5.1) mmol/L Chloride 93 L (98-107) mmol/L Carbon Dioxide 35 H (22-32) mmol/L BUN 26 H (9-20) mg/dL Creatinine 0.60 L (0.66-1.25) mg/dL Estimated GFR > 60.0 (>60) mL/min BUN/Creatinine Ratio 43.3 H (6-22) Glucose 229 H (80-110) mg/dL Calcium 9.0 (8.4-10.2) mg/dL Magnesium 2.1 (1.6-2.3) mg/dL Urine Color Urine Appearance Urine pH (4.5-8.0) Ur Specific [place] (1.000-1.035) Urine Protein (Negative) Urine Glucose (UA) (Negative) g/dL Urine Ketones (NEGATIVE) Urine Occult Blood (Negative) Urine Nitrate (Negative) Urine Bilirubin (NEGATIVE) Urine Urobilinogen (0.2) E.U./dL Ur Leukocyte Esterase (NEGATIVE) Urine RBC (0-5/HPF) Urine WBC (0-5/HPF) Ur Squamous Epith Cells (0-5/HPF) Urine Bacteria (None) Ur Culture Indicated? 10/07/18 Range/Units 15:55 WBC (4.5-11.0) X10^3/uL RBC (4.5-5.9) X10^6/uL Hgb (13.5-17.5) g/dL Hct (41-53) % MCV (80-100) fL MCH (26-34) PG MCHC (30-36) % RDW (11.6-14.8) % Plt Count (150-400) X10^3/uL Neut % (Auto) (50-75) % Lymph % (Auto) (25-40) % Harper % (Auto) (3-14) % Eos % (Auto) (2-4) % Baso % (Auto) (0-2) % Neut # (Auto) (5502-1568) /uL Lymph # (Auto) (7826-1975) /uL Harper # (Auto) (0-900) /uL Eos # (Auto) (0-450) /uL Baso # (Auto) (0-100) /uL Sodium (137-145) mmol/L Potassium (3.4-5.1) mmol/L Chloride (98-107) mmol/L Carbon Dioxide (22-32) mmol/L BUN (9-20) mg/dL Creatinine (0.66-1.25) mg/dL Estimated GFR (>60) mL/min BUN/Creatinine Ratio (6-22) Glucose (80-110) mg/dL Calcium (8.4-10.2) mg/dL Magnesium (1.6-2.3) mg/dL Urine Color Yellow Urine Appearance Clear Urine pH 5.5 (4.5-8.0) Ur Specific [place] 1.020 (1.000-1.035) Urine Protein Negative (Negative) Urine Glucose (UA) 2+ H (Negative) g/dL Urine Ketones Negative (NEGATIVE) Urine Occult Blood Negative (Negative) Urine Nitrate Negative (Negative) Urine Bilirubin Negative (NEGATIVE) Urine Urobilinogen 1.0 (0.2) E.U./dL Ur Leukocyte Esterase Negative (NEGATIVE) Urine RBC None seen (0-5/HPF) Urine WBC 1-5/hpf (0-5/HPF) Ur Squamous Epith Cells None seen (0-5/HPF) Urine Bacteria Many (>30) H (None) Ur Culture Indicated? Cult not indicated Imaging Data CT scan - head: Radiologist's impression: PROCEDURE: CT HEAD/BRAIN WO CON INDICATIONS: mental status change, known mets TECHNIQUE: Noncontrast 4.5 mm thick angled axial sections acquired from the foramen magnum to the vertex, with coronal and sagittal reformats. For radiation dose reduction, the following was used: automated exposure control, adjustment of mA and/or kV according to patient size. COMPARISON: [facility], CT, CT HEAD/BRAIN WO CON, 10/01/2018, 13:17. FINDINGS: Image quality: Excellent. CSF spaces: Basal cisterns are patent. No extra-axial fluid collections. The ventricles are symmetric in size and shape. Brain: No intracranial bleeds or masses. Unchanged appearance of right parietal encephalomalacia. There is cerebral volume loss for age, with resultant ventricular and sulcal prominence. There are periventricular and deep white matter chronic sm all vessel ischemic changes. There is intracranial internal carotid artery atherosclerosis. Skull and face: Calvarium and visualized facial bones appear intact, without suspicious lesions. Sinuses: Visualized sinuses and mastoids are clear. IMPRESSION: No acute intracranial process. No interval change Dictated by: Emiliano Day M.D. on 10/07/2018 at 10:48 Approved by: Emiliano Day M.D. on 10/07/2018 at 10:56 Chest x-ray: Radiologist's impression: [address] [id number] XRay Report Signed Patient: Michele Barroso CMR#: [id number] : 3Acct:[id number] Age/Sex: 77 / MDate of Service: 10/07/18 Loc: ED Accession Number: [id number] Procedure: XR acute abdomen series Ordering Provider: Thompson Johnson D.O. PROCEDURE: XR ACUTE ABDOMEN SERIES INDICATIONS: Abdominal pain with no bowel movements TECHNIQUE: One view chest and two views of the abdomen were acquired. COMPARISON: [facility], CT, CT ANGIO CHEST PE PROTOCOL, 04/10/2018, 14:54. [facility], CT, CT ANGIO CHEST PE PROTOCOL, 10/29/2017, 19:36. FINDINGS: Surgical changes and devices: Extensive spine fusion surgery from lower thoracic spine into the pelvis again noted. 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 Heart size is normal. No pleural effusions. No pneumoperitoneum. Abdomen: Bowel gas pattern is abnormal with generalized colonic obstipation. No suspicious calcifications. Visualized solid organ contours appear normal. Bones: No suspicious bony lesions. IMPRESSION: Post radiation change within the chest. Moderate colonic obstipation through the abdomen and pelvis bilaterally. Stable extensive postsurgical change along the low thoracic and lumbosacral spine extending into the pelvis. Dictated by: Mario Gray M.D. on 10/07/2018 at 11:10 MDM Narrative Medical decision making narrative: elderly gentleman with weakness, falls, and change in appetite presents by EMS. He denies any specific complaint and has no focal findings. Chronic indwelling catheter so possible UTI, LLE is erythematous and warm, negative for DVT, possible cellulitis. Hyponatremia is acute, fluid hydration and close monitoring of lytes. Discharge Plan Departure Patient Disposition: Admitted as Observation Clinical Impression: Adult failure to thrive Discharge Date/Time: 10/07/18 13:22 Interventions: ED Discharge Assessment Last Done: 10/07/18 13:20 Admit Date/Time: 10/07/18 12:59 Admit Provider: Trinh Sheppard
[2018-10-07] MEDS: SODIUM CHLORIDE 0.9% 1,000 ML 1000 ML IV (11:44)
[2018-10-07 12:59] LABS: Magnesium 2.1 mg/dL (1.6-2.3)
[2018-10-07] MEDS: SODIUM CHLORIDE 0.9% 1,000 ML 100 ML IV (13:38)
--- NOTE | 2018-10-07 14:12 | PC.NURSE ---
Day shift: On AC unit at approx 1400. Confused attimes. HFR. Bed alarm on. Across from RN station. VS ok. RA 96%. IV fluids per MAR. No s/s or c/o pain or discomfort. Family at bedside for support.
[2018-10-07 17:46] LABS: Appearance Urine UA CLEAR; Bilirubin Urine UA NEGATIVE (NEGATIVE); Color Urine UA YELLOW; Glucose Urine UA 2+ g/dL (Negative); Ketones Urine UA NEGATIVE (NEGATIVE); Leukocyte Esterase Urine UA NEGATIVE (NEGATIVE); Nitrite Urine UA NEGATIVE (Negative); Occult Blood Urine UA NEGATIVE (Negative); Protein Urine UA NEGATIVE (Negative); RBC Urine None Seen (0-5/HPF); pH Urine UA 5.5 (4.5-8.0)
[2018-10-07 17:59] LABS: Bacteria Urine Many (>30); Squamous Epithelial Cell Urine None Seen (0-5/HPF); WBC Urine 1-5/HPF (0-5/HPF)
[2018-10-07 18:02] LABS: Culture Indicated Urine Cult Not Indicated
--- NOTE | 2018-10-07 18:06 | PM.HP.1 ---
History of Present Illness Date Patient Seen: 10/07/18 Chief complaint: MULTIPLE COMPLAINTS,ADVANCED STAGE BRAIN CANCER Narrative: Michele Barroso is a 77-year-old male with a past medical history significant for hypertension, hyperlipidemia, diabetes mellitus type 2, non-insulin using, chronic back pain with peripheral neuropathy, former smoker with [id number] lung cancer and metastases to the brain status post several rounds of chemotherapy and whole-brain radiation who presented for altered mental status. He is currently under the care of Dr. Saud Carvalho at the [facility] with most recent immunotherapy Keytruda 2 weeks ago. The patient's family brought the patient in today for the second time time in 1 week for abrupt onset mental status change. He was sent by the [facility] for evaluation, stabilization and the hopes that he could be admitted with hospice consult. The patient's family reports that he has stopped eating and drinking and has not had a bowel movement in 5 days. They report he is often confused, doesn't take pills on time or refuses, and is intermittently combative and aggressive. The patient's son is overly involved and voices frustration with his father's cancer care due to lack of communication/miscommunication of his cancer team with one another and the lack of communication/miscommunication with the patient and his family. The patient's family does not seem to grasp the severity of his prognosis and do not believe that he is terminal. They report that at one time he received the incorrect diagnosis. The patient's family would like the patient to be full code as those were the patient's previous wishes. Discussed the patient's chance of resuscitation in detail for which they would like to keep as full code despite the likelihood that we would be unsuccessful and the patient would enter suffering or if resuscitation efforts were successful likelihood that he would not be able to be extubated. The patient is resting in bed comfortably. He is alert and oriented to person only. When specifically asked about his appetite, he endorses a robust appetite but reports that he does not want to eat despite his appetite. He has sustained no injuries. He has no signs of infection. He denies headache, chest pain, shortness of breath, abdominal pain, nausea, vomiting, fever, chills, dysuria, or diarrhea. He endorses malaise and reports ?something is wrong with me but do not know what? and ?is this what it feels like when your dying?? He was seen on 10/01 under similar circumstances and head CT noted some edema around the brain metastases. At that time he was started on Decadron 4 mg every 6 hours for cerebral edema per on-call [facility] oncologist which has been continued recently (previously stopped in became adrenal insufficient). Patient History Medical History Anxiety (Acute) BPH (benign prostatic hyperplasia) (Acute) Chronic back pain (Acute) Depression (Acute) GERD (gastroesophageal reflux disease) (Acute) Hyperlipidemia (Acute) Hypertension (Acute) Hypothyroidism (Acute) Peripheral neuropathy (Acute) Atrial fibrillation (Acute) Diabetes (Acute) Lung cancer (Acute) Surgical History Previous back surgery (Acute) Family History Mother No problems noted. Social History household members: spouse and family Smoking Status: Former smoker alcohol intake: former Family & Social History Family History Mother No problems noted. Social History: household members family Prior Living Arrangements House Safety & Behavioral: Feels Safe in Current Yes Environment Been Physically Hurt or No Threatened By a Person Suicidal Ideation Description None Suicide Plan Description No Plan Tobacco & Substance use: Smoking Status Former smoker, 1 ppd x 30 years alcohol intake former alcohol intake frequency a few times a month Substance Use Type does not use Meds Home Medications Medication Instructions Recorded Confirmed Type levothyroxine [Synthroid] 125 mcg PO DAILY #0 05/02/17 10/07/18 History metformin [Glucophage] 1,000 mg PO QAM #0 05/02/17 10/07/18 History albuterol sulfate [ProAir HFA] 2 puff INHALATION Q6H PRN 04/10/18 10/07/18 History atorvastatin 10 mg PO BEDTIME 04/10/18 10/07/18 History dorzolamide-timolol 1 drp OPHTHALMIC (EYE) BID 04/10/18 10/07/18 History ketoconazole 1 applic TOPICAL BID 04/10/18 10/07/18 History latanoprost 1 drp OPHTHALMIC (EYE) BEDTIME 04/10/18 10/07/18 History metoclopramide HCl 10 mg PO Q6H PRN 04/10/18 10/07/18 History metronidazole 1 applic TOPICAL BID 04/10/18 10/07/18 History omeprazole 40 mg PO BID 04/10/18 10/07/18 History sennosides [senna] 17.2 mg PO BEDTIME PRN MDD 2 tabs 04/10/18 10/07/18 History CoQ-10 300 mg PO DAILY 08/22/18 10/07/18 History aspirin 325 mg PO DAILY 08/22/18 10/07/18 History carvedilol 12.5 mg PO BID 08/22/18 10/07/18 History cholecalciferol (vitamin D3) 5,000 unit PO DAILY 08/22/18 10/07/18 History [Vitamin D3] doxazosin 4 mg PO DAILY 08/22/18 10/07/18 History ferrous sulfate [iron] 325 mg PO DAILY 08/22/18 10/07/18 History furosemide 40 mg PO DAILY 08/22/18 10/07/18 History lorazepam 1 mg PO BEDTIME PRN 08/22/18 10/07/18 History metformin 500 mg PO QPM 08/22/18 10/07/18 History niacin 500 mg PO DAILY 08/22/18 10/07/18 History ropinirole 0.5 mg PO BEDTIME PRN 08/22/18 10/07/18 History ropinirole 2 mg PO BEDTIME PRN 08/22/18 10/07/18 History dexamethasone [Decadron] 4 mg PO Q6H #28 tab 10/01/18 10/07/18 Rx escitalopram oxalate 20 mg PO DAILY 10/01/18 10/07/18 History lactulose [Generlac] 1 dose PO DIRECTED 10/01/18 10/07/18 History magnesium 250 mg PO DAILY 10/01/18 10/07/18 History modafinil 200 mg PO DAILY 10/01/18 10/07/18 History oxycodone-acetaminophen 1 tab PO Q4H PRN 10/01/18 10/07/18 History potassium chloride 20 meq PO DAILY 10/01/18 10/07/18 History prednisone 10 mg PO DAILY 10/01/18 10/07/18 History testosterone cypionate 200 mg IM QMONTH 10/01/18 10/07/18 History olanzapine 15 mg PO BEDTIME 10/07/18 10/07/18 History Allergies Allergy/AdvReac Type Severity Reaction Status Date / Time metoprolol [METOPROLOL] AdvReac Severe FATIGUE Verified 08/22/18 08:46 pravastatin [PRAVASTATIN] AdvReac Severe ARTHALGIAS Verified 08/22/18 08:46 Review of Systems Review of Systems A 10 system comprehensive review of systems was conducted with the patient and found to be negative except as above in the History of Present Illness. Exam Vital Signs (past 8 hours): - 10/07/18 10:15 10/07/18 10:30 10/07/18 12:54 Temperature 97.4 F L 97.4 F L Pulse Rate 113 H 113 H 98 H Respiratory Rate 16 16 16 Blood Pressure 126/64 Blood Pressure [Left Arm] 125/83 124/64 Pulse Oximetry 94 94 98 10/07/18 13:20 10/07/18 13:30 10/07/18 15:21 Temperature 97.4 F L 97.6 F 97.5 F L Pulse Rate 99 H 100 H 98 H Respiratory Rate 16 16 18 Blood Pressure 126/64 145/72 H 116/70 Blood Pressure [Left Arm] Pulse Oximetry 98 96 96 Oxygen Delivery Method Room Air Oxygen Flow Rate 0 Narrative Exam Narrative: General: Elderly thin male sitting in bed and in no acute distress, appears chronically ill, moderate confusion, alert oriented to person only, currently pleasant and cooperative. HEENT: Normocephalic, atraumatic. External ears without defect. Pupils equal, round, and reactive to light. Anicteric sclerae, moist conjunctivae, and no lid lag. Oropharynx free of erythema and cobble stoning with moist mucosa. Neck: Supple with full range of motion. No jugular venous distension. No bruits. No lymphadenopathy or thyromegaly. Cardiovascular: Heart sounds distant but appears to be irregularly irregular without murmurs, rubs, or gallops appreciated. Pulmonary: Diminished throughout but appears to be clear to auscultation bilaterally without crackles, wheezes, or rhonchi. Normal respiratory effort with no use of accessory muscles. Abdomen: Soft, bowel sounds present, nontender, nondistended. No hepatosplenomegaly or masses appreciated. Extremities: No clubbing, cyanosis, or edema. Skin: Normal temperature, turgor, and texture; no rash, ulcers, or subcutaneous nodules appreciated. Neurological: Cranial nerves grossly intact. Psychiatric: Alert oriented to person only. Moderate confusion. Currently non-combative, pleasant, and cooperative. Objective Labs Result Diagrams: 10/07/18 11:05 10/07/18 11:05 Labs: Laboratory Results - last 24 hr 10/07/18 10/07/18 10/07/18 11:05 11:05 11:05 WBC 7.7 RBC 5.02 Hgb 14.9 Hct 43.5 MCV 86.6 MCH 29.6 MCHC 34.2 RDW 16.1 H Plt Count 162 Neut % (Auto) 93.7 H Lymph % (Auto) 2.6 L [place] % (Auto) 3.4 Eos % (Auto) 0.1 L Baso % (Auto) 0.2 Neut # (Auto) 7200 H Lymph # (Auto) 200 L [place] # (Auto) 300 Eos # (Auto) 0 Baso # (Auto) 0 Sodium 135 L Potassium 3.5 Chloride 93 L Carbon Dioxide 35 H BUN 26 H Creatinine 0.60 L Estimated GFR > 60.0 BUN/Creatinine Ratio 43.3 H Glucose 229 H Calcium 9.0 Magnesium 2.1 Urine Color Urine Appearance Urine pH Ur Specific Bland Urine Protein Urine Glucose (UA) Urine Ketones Urine Occult Blood Urine Nitrate Urine Bilirubin Urine Urobilinogen Ur Leukocyte Esterase Urine RBC Urine WBC Ur Squamous Epith Cells Urine Bacteria Ur Culture Indicated? 10/07/18 15:55 WBC RBC Hgb Hct MCV MCH MCHC RDW Plt Count Neut % (Auto) Lymph % (Auto) [place] % (Auto) Eos % (Auto) Baso % (Auto) Neut # (Auto) Lymph # (Auto) [place] # (Auto) Eos # (Auto) Baso # (Auto) Sodium Potassium Chloride Carbon Dioxide BUN Creatinine Estimated GFR BUN/Creatinine Ratio Glucose Calcium Magnesium Urine Color Yellow Urine Appearance Clear Urine pH 5.5 Ur Specific Bland 1.020 Urine Protein Negative Urine Glucose (UA) 2+ H Urine Ketones Negative Urine Occult Blood Negative Urine Nitrate Negative Urine Bilirubin Negative Urine Urobilinogen 1.0 Ur Leukocyte Esterase Negative Urine RBC None seen Urine WBC 1-5/hpf Ur Squamous Epith Cells None seen Urine Bacteria Many (>30) H Ur Culture Indicated? Cult not indicated Assessment & Plan Assessment & Plan narrative: Michele Barroso is a 77-year-old male with a past medical history significant for hypertension, hyperlipidemia, diabetes mellitus type 2, non-insulin using, chronic back pain with peripheral neuropathy, former smoker with [id number] lung cancer and metastases to the brain status post several rounds of chemotherapy and whole-brain radiation who presented for altered mental status. 1. Acute metabolic encephalopathy, present on admission. Active. -Likely secondary to advancing brain mets with surrounding vasogenic edema. Also contributing is glucocorticoids to treat brain swelling, if he is taking, and if not taking would also lead to further swelling and more confusion; and [employer] depressant medications such as oxycodone and lorazepam. -Limit amount of [employer] deppressant medications. -Reorient frequently. Allow patient to be awake and stimulated throughout the day and sleep at night with minimal interruptions. -Ordered seroquel 25 mg daily at bedtime. May titrate as needed. May use soft restraints if chemical restraints do not suffice. -Will try to arrange for sitter as patient is reportedly combative/aggressive at times per family. -Ordered UA which does not appear infected but asked for this to be cultured even though did not reflex. 2. Recently diagnosed symptomatic progression of metastatic brain cancer with cerebral edema, secondary to non-small cell lung cancer, present on admission. Active. -Patient is status post multiple types and rounds of chemotherapy and full brain radiation. Recently -Continue decadron 4 mg every 6 hours for significant cerebral edema. Per oncology nurses records, patient has not been taking medications on time and at times refuses. -Discussed with oncologist at [facility], Dr. Saud Carvalho, who plans to review the most recent imaging likely tomorrow and give further guidance in regard to non-small cell cancer with advancing brain mets and if there is further treatment options and patient's prognosis. [facility] team has been highly encouraging hospice for which the patient's family does not seem to be willing to consider until discussion with oncologist. 3. Chronic atrial fibrillation, present on admission. Stable. -Currently rate controlled. -Continue carvedilol 12.5 mg twice daily. 4. Hypertension, chronic, present on admission. Stable -Continue aspirin 325 mg daily, carvedilol 12.5 mg twice daily, furosemide 40 mg daily, and potassium chloride 20 mg daily. 5. Hyperlipidemia, chronic, present on admission. Stable. -Continue atorvastatin 10 mg daily at bedtime. 6. Diabetes mellitus type 2, non-insulin using, chronic, present on admission. Stable. -Hemoglobin A1c 5.9% in 04/2017. Ordered repeat hemoglobin A1c, pending. -Continue metformin 1000 mg daily in the morning and 500 mg daily before bedtime. -Continue ACHS blood glucose checks and low-dose correctional scale insulin. -Continue regular diet as patient is not eating and want to continue to encourage/stimulate him to eat. 7. Hypothyroidism, chronic, present on admission. Stable. -Continue levothyroxine 125 mcg daily. 8. BPH, chronic, present on admission. Stable. -Continue doxazosin 4 mg daily. 9. GERD, chronic, present on admission. Stable. -Continue omeprazole 40 mg twice daily. 10. Chronic back pain with peripheral neuropathy, chronic, present on admission. Stable -Continue home oxycodone 7.5 every 4 hours as needed for moderate to severe pain. 11. Restless legs syndrome, chronic, present on admission. Stable. -Continue ropinirole 2.5 mg daily at bedtime. Patient is admitted under observation status with expected length of stay less than 2 midnights due to severity of presenting symptoms, risk of adverse event, and complexity of treatment plan.
--- NOTE | 2018-10-07 18:09 | P.HP_ITS ---
History of Present Illness Date Patient Seen: 10/07/18 Chief complaint: MULTIPLE COMPLAINTS,ADVANCED STAGE BRAIN CANCER Narrative: Michele Barroos is a 77-year-old male with a past medical history significant for hypertension, hyperlipidemia, diabetes mellitus type 2, non-insulin using, chronic back pain with peripheral neuropathy, former smoker with [id number] lung cancer and metastases to the brain status post several rounds of chemotherapy and whole-brain radiation who presented for altered mental status. He is currently under the care of Dr. Saud Carvalho at the [facility] with most recent immunotherapy Keytruda 2 weeks ago. The patient's family brought the patient in today for the second time time in 1 week for abrupt onset mental status change. He was sent by the [facility] for evaluation, stabilization and the hopes that he could be admitted with hospice consult. The patient's family reports that he has stopped eating and drinking and has not had a bowel movement in 5 days. They report he is often confused, doesn't take pills on time or refuses, and is intermittently combative and aggressive. The patient's son is overly involved and voices fr ustration with his father's cancer care due to lack of communication/miscommunication of his cancer team with one another and the lack of communication/miscommunication with the patient and his family. The patient's family does not seem to grasp the severity of his prognosis and do not believe that he is terminal. They report that at one time he received the incorrect diagnosis. The patient's family would like the patient to be full code as those were the patient's previous wishes. Discussed the patient's chance of resuscitation in detail for which they would like to keep as full code despite the likelihood that we would be unsuccessful and the patient would enter suffering or if resuscitation efforts were successful likelihood that he would not be able to be extubated. The patient is resting in bed comfortably. He is alert and oriented to person only. When specifically asked about his appetite, he endorses a robust appetite but reports that he does not want to eat despite his appetite. He has sustained no injuries. He has no signs of infection. He denies headache, chest pain, shortness of breath, abdominal pain, nausea, vomiting, fever, chills, dysuria, or diarrhea. He endorses malaise and reports ?something is wrong with me but do not know what? and ?is this what it feels like when your dying?? He was seen on 10/01 under similar circumstances and head CT noted some edema around the brain metastases. At that time he was started on Decadron 4 mg every 6 hours for cerebral edema per on-call [facility] oncologist which has been continued recently (previously stopped in became adrenal insufficient). Patient History Medical History Anxiety (Acute) BPH (benign prostatic hyperplasia) (Acute) Chronic back pain (Acute) Depression (Acute) GERD (gastroesophageal reflux disease) (Acute) Hyperlipidemia (Acute) Hypertension (Acute) Hypothyroidism (Acute) Peripheral neuropathy (Acute) Atrial fibrillation (Acute) Diabetes (Acute) Lung cancer (Acute) Surgical History Previous back surgery (Acute) Family History Mother No problems noted. Social History household members: spouse and family Smoking Status: Former smoker alcohol intake: former Family & Social History Family History Mother No problems noted. Social History: household members family Prior Living Arrangements House Safety & Behavioral: Feels Safe in Current Yes Environment Been Physically Hurt or No Threatened By a Person Suicidal Ideation Description None Suicide Plan Description No Plan Tobacco & Substance use: Smoking Status Former smoker, 1 ppd x 30 years alcohol intake former alcohol intake frequency a few times a month Substance Use Type does not use Meds Home Medications Medication Instructions Recorded Confirmed Type levothyroxine [Synthroid] 125 mcg PO DAILY #0 05/02/17 10/07/18 History metformin [Glucophage] 1,000 mg PO QAM #0 05/02/17 10/07/18 History albuterol sulfate [ProAir HFA] 2 puff INHALATION Q6H PRN 04/10/18 10/07/18 History atorvastatin 10 mg PO BEDTIME 04/10/18 10/07/18 History dorzolamide-timolol 1 drp OPHTHALMIC (EYE) BID 04/10/18 10/07/18 History ketoconazole 1 applic TOPICAL BID 04/10/18 10/07/18 History latanoprost 1 drp OPHTHALMIC (EYE) BEDTIME 04/10/18 10/07/18 History metoclopramide HCl 10 mg PO Q6H PRN 04/10/18 10/07/18 History metronidazole 1 applic TOPICAL BID 04/10/18 10/07/18 History omeprazole 40 mg PO BID 04/10/18 10/07/18 History sennosides [senna] 17.2 mg PO BEDTIME PRN MDD 2 tabs 04/10/18 10/07/18 History CoQ-10 300 mg PO DAILY 08/22/18 10/07/18 History aspirin 325 mg PO DAILY 08/22/18 10/07/18 History carvedilol 12.5 mg PO BID 08/22/18 10/07/18 History cholecalciferol (vitamin D3) 5,000 unit PO DAILY 08/22/18 10/07/18 History [Vitamin D3] doxazosin 4 mg PO DAILY 08/22/18 10/07/18 History ferrous sulfate [iron] 325 mg PO DAILY 08/22/18 10/07/18 History furosemide 40 mg PO DAILY 08/22/18 10/07/18 History lorazepam 1 mg PO BEDTIME PRN 08/22/18 10/07/18 History metformin 500 mg PO QPM 08/22/18 10/07/18 History niacin 500 mg PO DAILY 08/22/18 10/07/18 History ropinirole 0.5 mg PO BEDTIME PRN 08/22/18 10/07/18 History ropinirole 2 mg PO BEDTIME PRN 08/22/18 10/07/18 History dexamethasone [Decadron] 4 mg PO Q6H #28 tab 10/01/18 10/07/18 Rx escitalopram oxalate 20 mg PO DAILY 10/01/18 10/07/18 History lactulose [Generlac] 1 dose PO DIRECTED 10/01/18 10/07/18 History magnesium 250 mg PO DAILY 10/01/18 10/07/18 History modafinil 200 mg PO DAILY 10/01/18 10/07/18 History oxycodone-acetaminophen 1 tab PO Q4H PRN 10/01/18 10/07/18 History potassium chloride 20 meq PO DAILY 10/01/18 10/07/18 History prednisone 10 mg PO DAILY 10/01/18 10/07/18 History testosterone cypionate 200 mg IM QMONTH 10/01/18 10/07/18 History olanzapine 15 mg PO BEDTIME 10/07/18 10/07/18 History Allergies Allergy/AdvReac Type Severity Reaction Status Date / Time metoprolol [METOPROLOL] AdvReac Severe FATIGUE Verified 08/22/18 08:46 pravastatin [PRAVASTATIN] AdvReac Severe ARTHALGIAS Verified 08/22/18 08:46 Review of Systems Review of Systems A 10 system comprehensive review of systems was conducted with the patient and found to be negative except as above in the History of Present Illness. Exam Vital Signs (past 8 hours): - 10/07/18 10:15 10/07/18 10:30 10/07/18 12:54 Temperature 97.4 F L 97.4 F L Pulse Rate 113 H 113 H 98 H Respiratory Rate 16 16 16 Blood Pressure 126/64 Blood Pressure [Left Arm] 125/83 124/64 Pulse Oximetry 94 94 98 10/07/18 13:20 10/07/18 13:30 10/07/18 15:21 Temperature 97.4 F L 97.6 F 97.5 F L Pulse Rate 99 H 100 H 98 H Respiratory Rate 16 16 18 Blood Pressure 126/64 145/72 H 116/70 Blood Pressure [Left Arm] Pulse Oximetry 98 96 96 Oxygen Delivery Method Room Air Oxygen Flow Rate 0 Narrative Exam Narrative: General: Elderly thin male sitting in bed and in no acute distress, appears chronically ill, moderate confusion, alert oriented to person only, currently pleasant and cooperative. HEENT: Normocephalic, atraumatic. External ears without defect. Pupils equal, round, and reactive to light. Anicteric sclerae, moist conjunctivae, and no lid lag. Oropharynx free of erythema and cobble stoning with moist mucosa. Neck: Supple with full range of motion. No jugular venous distension. No bruits. No lymphadenopathy or thyromegaly. Cardiovascular: Heart sounds distant but appears to be irregularly irregular without murmurs, rubs, or gallops appreciated. Pulmonary: Diminished throughout but appears to be clear to auscultation bilaterally without crackles, wheezes, or rhonchi. Normal respiratory effort with no use of accessory muscles. Abdomen: Soft, bowel sounds present, nontender, nondistended. No hepatosplenomegaly or masses appreciated. Extremities: No clubbing, cyanosis, or edema. Skin: Normal temperature, turgor, and texture; no rash, ulcers, or subcutaneous nodules appreciated. Neurological: Cranial nerves grossly intact. Psychiatric: Alert oriented to person only. Moderate confusion. Currently non-combative, pleasant, and cooperative. Objective Labs Result Diagrams: 10/07/18 11:05 10/07/18 11:05 Labs: Laboratory Results - last 24 hr 10/07/18 10/07/18 10/07/18 11:05 11:05 11:05 WBC 7.7 RBC 5.02 Hgb 14.9 Hct 43.5 MCV 86.6 MCH 29.6 MCHC 34.2 RDW 16.1 H Plt Count 162 Neut % (Auto) 93.7 H Lymph % (Auto) 2.6 L [place] % (Auto) 3.4 Eos % (Auto) 0.1 L Baso % (Auto) 0.2 Neut # (Auto) 7200 H Lymph # (Auto) 200 L [place] # (Auto) 300 Eos # (Auto) 0 Baso # (Auto) 0 Sodium 135 L Potassium 3.5 Chloride 93 L Carbon Dioxide 35 H BUN 26 H Creatinine 0.60 L Estimated GFR > 60.0 BUN/Creatinine Ratio 43.3 H Glucose 229 H Calcium 9.0 Magnesium 2.1 Urine Color Urine Appearance Urine pH Ur Specific [place] Urine Protein Urine Glucose (UA) Urine Ketones Urine Occult Blood Urine Nitrate Urine Bilirubin Urine Urobilinogen Ur Leukocyte Esterase Urine RBC Urine WBC Ur Squamous Epith Cells Urine Bacteria Ur Culture Indicated? 10/07/18 15:55 WBC RBC Hgb Hct MCV MCH MCHC RDW Plt Count Neut % (Auto) Lymph % (Auto) [place] % (Auto) Eos % (Auto) Baso % (Auto) Neut # (Auto) Lymph # (Auto) [place] # (Auto) Eos # (Auto) Baso # (Auto) Sodium Potassium Chloride Carbon Dioxide BUN Creatinine Estimated GFR BUN/Creatinine Ratio Glucose Calcium Magnesium Urine Color Yellow Urine Appearance Clear Urine pH 5.5 Ur Specific [place] 1.020 Urine Protein Negative Urine Glucose (UA) 2+ H Urine Ketones Negative Urine Occult Blood Negative Urine Nitrate Negative Urine Bilirubin Negative Urine Urobilinogen 1.0 Ur Leukocyte Esterase Negative Urine RBC None seen Urine WBC 1-5/hpf Ur Squamous Epith Cells None seen Urine Bacteria Many (>30) H Ur Culture Indicated? Cult not indicated Assessment & Plan Assessment & Plan narrative: Michele Barroso is a 77-year-old male with a past medical history significant for hypertension, hyperlipidemia, diabetes mellitus type 2, non-insulin using, chronic back pain with peripheral neuropathy, former smoker with [id number]-[id number] lung cancer and metastases to the brain status post several rounds of chemotherapy and whole-brain radiation who presented for altered mental status. 1. Acute metabolic encephalopathy, present on admission. Active. -Likely secondary to advancing brain mets with surrounding vasogenic edema. Also contributing is glucocorticoids to treat brain swelling, if he is taking, and if not taking would also lead to further swelling and more confusion; and SALVAGER depressant medications such as oxycodone and lorazepam. -Limit amount of SALVAGER deppressant medications. -Reorient frequently. Allow patient to be awake and stimulated throughout the day and sleep at night with minimal interruptions. -Ordered seroquel 25 mg daily at bedtime. May titrate as needed. May use soft restraints if chemical restraints do not suffice. -Will try to arrange for sitter as patient is reportedly combative/aggressive at times per family. -Ordered UA which does not appear infected but asked for this to be cultured even though did not reflex. 2. Recently diagnosed symptomatic progression of metastatic brain cancer with cerebral edema, secondary to non-small cell lung cancer, present on admission. Active. -Patient is status post multiple types and rounds of chemotherapy and full brain radiation. Recently -Continue decadron 4 mg every 6 hours for significant cerebral edema. Per oncology nurses records, patient has not been taking medications on time and at times refuses. -Discussed with oncologist at [facility], Dr. Saud Carvalho, who plans to review the most recent imaging likely tomorrow and give further guidance in regard to non- small cell cancer with advancing brain mets and if there is further treatment options and patient's prognosis. [facility] team has been highly encouraging hospice for which the patient's family does not seem to be willing to consider until discussion with oncologist. 3. Chronic atrial fibrillation, present on admission. Stable. -Currently rate controlled. -Continue carvedilol 12.5 mg twice daily. 4. Hypertension, chronic, present on admission. Stable -Continue aspirin 325 mg daily, carvedilol 12.5 mg twice daily, furosemide 40 mg daily, and potassium chloride 20 mg daily. 5. Hyperlipidemia, chronic, present on admission. Stable. -Continue atorvastatin 10 mg daily at bedtime. 6. Diabetes mellitus type 2, non-insulin using, chronic, present on admission. Stable. -Hemoglobin A1c 5.9% in 04/2017. Ordered repeat hemoglobin A1c, pending. -Continue metformin 1000 mg daily in the morning and 500 mg daily before bedtime. -Continue ACHS blood glucose checks and low-dose correctional scale insulin. -Continue regular diet as patient is not eating and want to continue to encourage/stimulate him to eat. 7. Hypothyroidism, chronic, present on admission. Stable. -Continue levothyroxine 125 mcg daily. 8. BPH, chronic, present on admission. Stable. -Continue doxazosin 4 mg daily. 9. GERD, chronic, present on admission. Stable. -Continue omeprazole 40 mg twice daily. 10. Chronic back pain with peripheral neuropathy, chronic, present on admission. Stable -Continue home oxycodone 7.5 every 4 hours as needed for moderate to severe pain. 11. Restless legs syndrome, chronic, present on admission. Stable. -Continue ropinirole 2.5 mg daily at bedtime. Patient is admitted under observation status with expected length of stay less than 2 midnights due to severity of presenting symptoms, risk of adverse event, and complexity of treatment plan.
--- NOTE | 2018-10-07 18:42 | PC.NURSE ---
Pt somewhat agitated at beginning of shift, easily calmed with less stimulation, less amount of people in room... Per Dr. Sheppard stimulation during day, less stimulation at night and no vital to be taken after 1999. Pt is alert/oriented to self, family, and diagnosis of CA to brain and lungs. At times demonstrates hallucinations/delusions, memory loss, but next moment is sharp witted and alert to situation. Pt is pleasant and cooperative almaz with less stimulation. slightly tachy-98, 96%RA, LS clear/dim, denies /SOB. BT+ denies nausea. 1PA FWW to stand and use urinal or BRP to void, sent specimen to lab. RFA NS @ 100. Bed alarm on. JULIANE Chang here for bedside noteman.
[2018-10-07] MEDS: DEXAMETHASONE 4 MG TABLET PO (19:40)
[2018-10-07] MEDS: LATANOPROST 0.005% OPHTH 2.5 ML 1 DROPS EYE-BOTH (22:45)
[2018-10-07] MEDS: SENNOSIDES 8.6 MG TABLET 17.2 MG PO (22:45)
[2018-10-07] MEDS: QUETIAPINE 25 MG TABLET PO (22:45)
[2018-10-07] MEDS: PANTOPRAZOLE 40 MG TABLET PO (22:45)
[2018-10-07] MEDS: ATORVASTATIN 10 MG TABLET PO (23:36)
[2018-10-07] MEDS: CARVEDILOL 12.5 MG TABLET PO (23:37)
[2018-10-07] MEDS: DOCUSATE 100 MG CAPSULE PO (23:38)
[2018-10-07] MEDS: HEPARIN 5,000 UNIT/ML VIAL 5000 UNIT SUBCUT (23:38)
[2018-10-07] MEDS: DORZOLAMIDE/TIMOLOL OPHTH 10 ML 1 DROPS EYE-BOTH (23:38)
[2018-10-08] VITALS (9 sets, daily range): BP systolic 132–151; BP diastolic 76–92; PULSE 81–148; RESP 18–20; TEMP 36.2–36.9; O2SAT 93–99
[2018-10-08] MEDS: DEXAMETHASONE 4 MG TABLET PO ×4 (00:36→13:34)
[2018-10-08] MEDS: OXYCODONE/ACETAMINOPHEN 5/325 TABLET 1.5 TAB PO ×3 (01:53→14:58)
[2018-10-08] MEDS: LEVOTHYROXINE 125 MCG TABLET PO (06:04)
[2018-10-08] MEDS: SODIUM CHLORIDE 0.9% 1,000 ML 100 ML IV (09:23)
[2018-10-08] MEDS: PANTOPRAZOLE 40 MG TABLET PO ×2 (09:24→21:07)
[2018-10-08] MEDS: DOCUSATE 100 MG CAPSULE PO ×2 (09:25→21:01)
[2018-10-08] MEDS: FUROSEMIDE 40 MG TABLET PO (09:25)
[2018-10-08] MEDS: DOXAZOSIN 4 MG TABLET PO (09:26)
[2018-10-08] MEDS: DORZOLAMIDE/TIMOLOL OPHTH 10 ML 1 DROPS EYE-BOTH ×2 (09:27→21:01)
[2018-10-08] MEDS: CARVEDILOL 12.5 MG TABLET PO ×2 (09:27→21:00)
[2018-10-08] MEDS: METFORMIN HCL 500 MG TABLET 1000 MG PO (09:28)
[2018-10-08] MEDS: HEPARIN 5,000 UNIT/ML VIAL 5000 UNIT SUBCUT ×2 (09:30→21:01)
[2018-10-08] MEDS: BISACODYL 5 MG TABLET 10 MG PO (09:37)
[2018-10-08] MEDS: POTASSIUM CHLORIDE 20 MEQ TAB PO (09:56)
[2018-10-08] MEDS: ASPIRIN EC 325 MG TABLET PO (09:57)
[2018-10-08] MEDS: INSULIN ASPART 100 UNIT/ML INSULN PEN SUBCUT ×4 (09:57→21:04)
--- NOTE | 2018-10-08 10:35 | PT.IPTN ---
Physical Therapy Treatment Note M3 PT-IP Subjective Start: 10/08/18 10:29 Freq: NEEDED Status: Active Protocol: Document 10/08/18 10:00 (Rec: 10/08/18 10:33 [id number]) Subjective Physical Therapy Visit Type Type Administrative Note Visit Start Time 10:00 Notes Attempted PT with OT at 10 am. Pt deeply in sleep and WANDA Best advised to hold for PT until lunch time since pt has been very agitated this am who also just received meds 15 mins ago. Reattempt PT again around lunch time. Per JAVIER Gardner, pt's son contacted hospice before and hospice did reach out to JAVIER. Kendra stated the case is not opened at this point.
--- NOTE | 2018-10-08 11:20 | PC.NURSE ---
Pt is Alert but disoriented to time,place, and person. He does recognize his son. Pt angry this morning, wanting to get dressed, and was going to leave in 10 minutes. He easily forgets and then will take a nap. He has not been combative with staff. He did initially refuse all of his medication but then took it later this am. Given 7.5mg of po percocet and pt has been comfortably napping.
--- NOTE | 2018-10-08 11:22 | PC.NURSE ---
Patient alert and oriented to self, birthday, unable to state date/month/situation. Confused. Refusing medication x4 this am, re-approach was able to get morning medications. s/sx of pain with reposition, prn percocet effective for pain control. BG check this am =311,A-symptomatic, updated MD, new orders for insulin. Unsafe behaviors, attempting to stand several times, bed alarm in place and re-orientation prn given. Discussed safety with patient, will need further reinforcement. Spoke with son (john) who came in this am about to speak with physician about POC. ABD soft, non-tender. Hypoactive bowel tones. routine bowel meds given. Denies nausea.
--- NOTE | 2018-10-08 11:55 | PC.NURSE ---
Medications asa and kcl difficulty scanning,alerted pharmacy to update, administered routine doses this am with primary nurse Estephania MUÑOZ.
--- NOTE | 2018-10-08 12:22 | PT.IIE ---
Surgical History (Last Reviewed 10/08/18 @ 16:40 by Trinh Sheppard DO) Previous back surgery (Acute) Medical History (Last Reviewed 10/08/18 @ 16:40 by Trinh Sheppard DO) Anxiety (Acute) BPH (benign prostatic hyperplasia) (Acute) Chronic back pain (Acute) Depression (Acute) GERD (gastroesophageal reflux disease) (Acute) Hyperlipidemia (Acute) Hypertension (Acute) Hypothyroidism (Acute) Peripheral neuropathy (Acute) Atrial fibrillation (Acute) Diabetes (Acute) Lung cancer (Acute) Physical Therapy Inpatient Evaluation/Re-Eval M1 PT/OT-IP Prior Functional Status Start: 10/08/18 10:29 Freq: NEEDED Status: Active Protocol: Document 10/08/18 12:24 PJM (Rec: 10/08/18 16:40 PJM [id number]) Medical Review Prior Functional Status Medical History Reviewed Yes Diet/Fluid Consistency Regular Communication Able to make needs known Mobility and Gait Per son, pt ambulated without a device and pt states he uses nearby furniture for support as he walks around the house. Activities of Daily Living and IADL's Per son, pt was completing all self care skills with SBA from or son until the last week when he became more confused. Prior Functional Level (Other details) is in good health per son and provides SBA to pt as needed at home. not here this session. Social History Household Members spouse Living Arrangements House Number of Stairs To Enter/Railing? pt has no stairs to enter home and stays on main level Home Environment High Toilet Walk in Shower Home Equipment Front Wheel Walker Straight Cane Manual Wheelchair Power Wheelchair/Scooter Shower Seat with Backrest Hand Held Shower Maturity Checker Sock Aid Grab Bars Near Toilet Grab Bars In Shower Employment Status Retired Additional Social History Comment Son states pt has all necessary bathroom safety equipment at home which is much better than you have here . M2 PT-IP Current Condition Start: 10/08/18 10:29 Freq: NEEDED Status: Active Protocol: Document 10/08/18 12:22 DLM (Rec: 10/08/18 17:38 DLM [id number]) Physical Therapy Current Condition Current Condition Evaluation Date 10/08/18 Treatment Diagnosis lung cancer with mets to brain , confusion, generalized weakness Onset Date 10/07/18 Precautions Other Precautions cognitive impairments M3 PT-IP Subjective Start: 10/08/18 10:29 Freq: NEEDED Status: Active Protocol: Document 10/08/18 12:22 DL (Rec: 10/08/18 17:38 DL [id number]) Subjective Physical Therapy Visit Type Type Initial Evaluation Visit Start Time 11:50 Visit Stop Time 12:22 Total Visit Minutes 32 Number of TISSUE TECHNOLOGIST Visits 0 Physical Therapy Visit Comments Patient Comments he just wants to go home, does not know why he is hear, concerned about where his pants are Therapy Pain Assessment Pain Present Pain Present Denied Pain M4 PT-IP Mobility and Gait Start: 10/08/18 10:29 Freq: NEEDED Status: Active Protocol: Document 10/08/18 12:22 DL (Rec: 10/08/18 17:38 [facility] [id number]) PT-Bed Mobility Assessment Rolling Level of Assist Standby Assistance Supine to Sit Supine to Sit Minimal Assistance Scooting Scooting to Edge of Bed Standby Assistance PT-Transfer Assessment Sit to and From Stand Sit to and from Stand Contact Guard Assistance Minimal Assistance Use of Upper Extremities Equipment Transfer Assistive Device Gait Belt Transfers Transfer Destination Chair Transfer Technique Stand Step Pivot Transfer Ability Level of Assist Standby Assistance Contact Guard Assistance Use of Upper Extremities Gait Assessment Gait Gait Assistance Required: Standby Assistance Contact Guard Assist Distance (Feet) 30 Assistive Devices Assistive Device None Comments Gait Comments he often reaches out for furniture or chau for support but can take some steps without support, up to toilet where he stood in attempt to urinate but was unable to void , pt left up in recliner for lunch with chair alarm on PT-Balance Assessment Sitting Balance and Reactions Static Sitting Balance Ability Good Dynamic Sitting Balance Ability Good Standing Balance and Reactions Static Standing Balance Ability Good Dynamic Standing Balance Ability Fair Device Used none M5 PT-IP Objective Assessments Start: 10/08/18 10:29 Freq: NEEDED Status: Active Protocol: Document 10/08/18 12:22 DL (Rec: 10/08/18 17:38 [facility] [id number]) Orientation Orientation/Cognition Level of Alertness Confusional State Orientation Name Language Function Ability No Deficits Noted Safety Awareness Decreased Safety Awareness Memory Description Short Term Impaired Comments difficult to fully assess cognition because pt becomes agitated, pt initially happy to see his Son arrive but then became agitated with his Son, pt gets agitated with too much stimulation Gross Range of Motion Upper Extremity ROM Assessment Within Functional Limits Lower Extremity ROM Assessment Within Functional Limits Strength Upper Extremity Strength Assessment Within Functional Limits Lower Extremity Strength Assessment Within Functional Limits Comments Strength Comments pt unable to participate in manual muscle testing so only assessed functional strength Coordination Assessment Gross Coordination Gross Coordination WNL Sensation Assessment Comments Sensation Comments unable to assess Muscle Tone Muscle Tone WNL Yes M7 PT-IP Assessment and Plan Start: 10/08/18 10:29 Freq: NEEDED Status: Active Protocol: Document 10/08/18 12:22 DLM (Rec: 10/08/18 17:38 DLM [id number]) PT Summary Assessment and Plan Potential Rehabilitation Potential Fair Status of Condition at Evaluation Evolving Summary Impairments Cognition Bed Mobility Transfers Gait Activity Tolerance Assessment Summary Michele is alert and willing to get up with therapy with a lot of encouragement. He gets agitated easily. Pt ambulated to the bathroom and then sat up in recliner for lunch. His Son arrived during this treatment session. Pt is cooperative with simple tasks. He gets over-stimulated easily with a lot of people or activity in his room. He presents with decreased memory but gets upset if he is confronted about it. If his family is able to manage him he would be able to return home with 24/7 assist. Will continue to follow him for mobility issues while hospitalized. Goals Bed Mobility Goal Independent Transfer Goal Independent Gait Goal Standby Assistance Gait Distance 100 feet Days to Meet Goals 5 Frequency of Treatment Frequency Of Treatment Once a Day Treatment Plan Physical Therapy Treatment Plan Bed Mobility Training Transfer Training Gait Training Therapeutic Exercise Discharge Planning Recommendations To Nursing Amount of Assist Needed 1 Person Assist Discharge Recommendations PT Discharge Recommendations Home with 24/7 Assist
--- NOTE | 2018-10-08 12:24 | OT.IP.EVAL ---
Past Medical History (Last Updated 10/07/18 @ 18:32 by Trinh Sheppard DO) Anxiety (Acute) BPH (benign prostatic hyperplasia) (Acute) Chronic back pain (Acute) Depression (Acute) GERD (gastroesophageal reflux disease) (Acute) Hyperlipidemia (Acute) Hypertension (Acute) Hypothyroidism (Acute) Peripheral neuropathy (Acute) Atrial fibrillation (Acute) Diabetes (Acute) Lung cancer (Acute) Surgical History (Last Updated 10/07/18 @ 18:36 by Trinh Sheppard DO) Previous back surgery (Acute) Occupational Therapy Inpatient Evaluation/Re-Eval M1 PT/OT-IP Prior Functional Status Start: 10/08/18 10:29 Freq: NEEDED Status: Active Protocol: Document 10/08/18 12:24 PJM (Rec: 10/08/18 16:40 PJ [id number]) Medical Review Prior Functional Status Medical History Reviewed Yes Diet/Fluid Consistency Regular Communication Able to make needs known Mobility and Gait Per son, pt ambulated without a device and pt states he uses nearby furniture for support as he walks around the house. Activities of Daily Living and IADL's Per son, pt was completing all self care skills with SBA from or son until the last week when he became more confused. Prior Functional Level (Other details) is in good health per son and provides SBA to pt as needed at home. not here this session to confirm. Social History Household Members spouse Living Arrangements House Number of Stairs To Enter/Railing? pt has no stairs to enter home and stays on main level Home Environment High Toilet Walk in Shower Home Equipment Front Wheel Walker Straight Cane Manual Wheelchair Power Wheelchair/Scooter Shower Seat with Backrest Hand Held Shower Nitric Acid Concentrator Operator Sock Aid Grab Bars Near Toilet Grab Bars In Shower Employment Status Retired Additional Social History Comment Son states pt has all necessary bathroom safety equipment at home which is much better than you have here. M2 OT-IP Current Condition Start: 10/08/18 16:15 Freq: Status: Active Protocol: Document 10/08/18 12:24 PJM (Rec: 10/08/18 16:40 PJ [id number]) Occupational Therapy Current Condition Current Condition Evaluation Date 10/08/18 Treatment Diagnosis decr'd cognition,mobility,self care due to cerebral edema from brain mets Diagnosis Onset Date 10/07/18 Post Operative Precautions Other Precautions confusion, fall risk, agitated at times M3 OT- IP Subjective and Pain Start: 10/08/18 16:15 Freq: Status: Active Protocol: Document 10/08/18 12:24 PJM (Rec: 10/08/18 16:40 PJM [id number]) OT- Subjective Occupational Therapy Visit Type Type Initial Evaluation Visit Start Time 11:59 Visit Stop Time 12:24 Total Visit Minutes 25 Notes Son observing this session and providing information re: prior level of function and home situation. Occupational Therapy Visit Comments Patient Comments I don't like people to crowd me when I am trying to walk. I have to be able to move. Patient/Caregiver Goals none verbalized due to confusion OT Pain Assessment Pain When Pain Assessed After Treatment Pain Present Pain Present Denied Pain M4 OT- IP ADL's Start: 10/08/18 16:15 Freq: Status: Active Protocol: Document 10/08/18 12:24 PJM (Rec: 10/08/18 16:40 PJ [id number]) OT [facility] General Evaluation Self-Feeding Ability Independent Areas Needing Assistance Opening Containers Comments OT Self-Feeding Comments Pt needing assist to open milk container, but able to cut food with knife and fork and feed self independently with R hand. Pt mildly confused about unfamiliar condiment packages. OT ADL-Grooming General Evaluation Grooming Ability Standby Assistance Comments OT Grooming Comments No new deficits identified that would interfere with grooming tasks. Pt needs supervision due to confusion. Pt washed hands at sink with SBA from P.T. and mod cues to problem solve unfamiliar faucet. OT ADL-Oral Care General Eval Oral Care Ability Standby Assistance Comments Oral Care Comments No new deficits identified that would interfere with grooming tasks. Pt needs supervision due to confusion. OT ADL-Dressing Comments OT Dressing Comments Pt declined to attempt any dressing this session. Pt needs supervision and verbal cues due to confusion. OT ADL-Toileting General Evaluation Toileting Ability Standby Assistance Contact Guard Assistance Comments OT Toileting Comments Pt stood in bathroom with P.T. to attempt to use urinal with no results. No loss of balance as long as pt using grab bar, per P.T. OT ADL-Bathing Comments OT Bathing Comments did not occur this session; pt has all necessary bathroom safety equipt at home M5 OT- IP IADL's Start: 10/08/18 16:15 Freq: Status: Active Protocol: Document 10/08/18 12:24 PJM (Rec: 10/08/18 16:40 PJ [id number]) OT-Instrumental Activities of Daily Living Deficits IADL Deficits Identified Deficits Home Safety Awareness Awareness of Need for Assistance at Home Decreased Awareness Ability to Problem Solve Emergency Unable to Problem Solve Situations Medication Management Medication Management Caregiver Administers Medication Management Comments provides total assist Money Management Money Management Comments provides total assist Meal Preparation Meal Preparation Comments provides total assist Service Consultant Service Consultant Comments provides total assist Driving Driving Comments provides total assist M6 OT- IP Functional Cognition Start: 10/08/18 16:15 Freq: Status: Active Protocol: Document 10/08/18 12:24 PJM (Rec: 10/08/18 16:40 PJ [id number]) Cognitive Factors Limiting Selfcare Function Cognitive Ability Level of Alertness Confusional State Patient Orientation Name Attention Span Ability Capable of Focused Attention Capable of Sustained Attention Ability to Follow Commands Able to Follow One Step Commands Memory Description Immediate Impaired Short Term Impaired Safety Awareness Decreased Recall of Precautions Decreased Ability to Apply Precautions Underestimates Need for Assistance Problem Solving Ability Unable to Identify Errors Needs Assist to Identify Solutions Executive Function Ability Unable to Filter Distractions Unable to Make Plans Unable to Organize Plans Unable to Remember Details Unable to Integrate Past Experience With Present Action Abstract Thinking Ability Unable to Use Concepts Unable to Make Generalizations Unable to Understand Generalizations Unable to Draw Logical Conclusions Unable to Be Adaptable in Thinking Cognitive Comments Cognitive Assessment Comments Pt oriented to self only. He follows one step commands, but insists on doing things his way with no insight into potential safety issues. Pt cooperative this session with walking to bathroom with P.T. and, then eating lunch. OT- Vision and Hearing OT- Hearing Assessment OT- Hearing Assessment WFL OT- Vision Assessment Vision Assessment Comments Pt denies any recent vision changes such as blurred or double vision. He can read wall clock without glasses with some confusion re: minute hand placement. M7 OT- IP Mobility and Balance Start: 10/08/18 16:15 Freq: Status: Active Protocol: Document 10/08/18 12:24 PJM (Rec: 10/08/18 16:40 PJ [id number]) OT-Transfer Assessment Comments Mobility Comments see P.T. notes OT- Gait Assessment Comments Gait Ability Comments see P.T. notes OT- Balance Assessment Comments Other Balance Tests/Deviations/Treatment see P.T. notes : M8 OT- IP Objective Assessments Start: 10/08/18 16:15 Freq: Status: Active Protocol: Document 10/08/18 12:24 PJM (Rec: 10/08/18 16:40 PJ [id number]) OT Gross Range of Motion Upper Extremity Range of Motion Assessment Within Functional Limits OT Strength Upper Extremity Strength Assessment Within Functional Limits Hand Business Services Associate Strength Hand Dominance Right OT- Coordination Assessment Comments Coordination Comments BUE WFL for grooming and eating. OT-Muscle Tone Assessment Muscle Tone WNL Yes OT Sensation Assessment Comments Summary Comments Pt appears to detect lt touch in B hands. Edema Edema Absent M9 OT- IP Assessment and Plan Start: 10/08/18 16:15 Freq: Status: Active Protocol: Document 10/08/18 12:24 PJM (Rec: 10/08/18 16:40 PJ [id number]) OT Summary Assessment and Plan Potential Analytic Complexity at Evaluation Moderate Summary Assessment Summary Moderate complexity OT assessment completed due to pt's complex medical hx and behavioral issues. Pt demonstrating no focal BUE deficits in strength, sensation or coordination. He denies any vision changes. Persistent confusion with intermittent agitation is primary deficit at present. Pt's son states pt has had home health OT services and pt /family did not find them helpful. Son states he does not feel any OT services needed at present. This therapist in agreement based on pt's current cognitive status and poor prognosis with no OT goals identified for this admission. Per chart notes, hospice services have been recommended by pt's [facility] care team, but family has been unwilling to agree to this. Assume d/c plan is home with family assist and possible hospice services if family agrees after discussion with [place] oncologist. OT to sign off. Frequency of Treatment Frequency Of Treatment Discharge Discharge Recommendations OT Discharge Recommendations Home with 18/12 Assist Other Discharge Recommendations Hospice services if family agrees Home Equipment Needs none
--- NOTE | 2018-10-08 13:17 | P.PN_ITS ---
Subjective Date Patient Seen: 10/08/18 Interval history: Michele Barroso is a 77-year-old male with a past medical history significant for hypertension, hyperlipidemia, diabetes mellitus type 2, non-insulin using, chronic back pain with peripheral neuropathy, former smoker with [id number] lung cancer and metastases to the brain status post several rounds of chemotherapy and whole-brain radiation who presented for altered mental status. The patient is resting in bedside chair comfortably eating breakfast. He reports he is cold and would like some warm blankets. He reports he did not sleep then later tells me he slept well. Per nursing staff he slept well. He asks to see his and his dog. He continues to be moderately confused and is alert and oriented to person only. He denies headache, shortness of breath, chest pain, abdominal pain, nausea, vomiting, fever, chills, dysuria, diarrhea or constipation. He is voiding and eliminating without difficulty. He is up ambulating with minimal assistance. Exam Vital Signs (past 8 hours): - 10/08/18 07:00 10/08/18 07:55 10/08/18 09:26 Temperature 97.1 F L Pulse Rate 148 H 81 Respiratory Rate 20 Blood Pressure 132/92 H 132/92 H Pulse Oximetry 99 99 10/08/18 09:27 10/08/18 11:55 Temperature 97.9 F Pulse Rate 82 100 H Respiratory Rate 18 Blood Pressure 132/92 H 133/91 H Pulse Oximetry 96 Oxygen Delivery Method Room Air Oxygen Flow Rate 0 Narrative Exam Narrative: General: Elderly thin male sitting in bed and in no acute distress, appears chronically ill, moderate confusion with short-term memory recall deficit, alert oriented to person only, currently argumentative but not combative. HEENT: Normocephalic, atraumatic. External ears without defect. Pupils equal, round, and reactive to light. Anicteric sclerae, moist conjunctivae, and no lid lag. Neck: Supple with full range of motion. No jugular venous distension. No bruits. No lymphadenopathy or thyromegaly. Cardiovascular: Heart sounds distant but appears to be irregularly irregular without murmurs, rubs, or gallops appreciated. Pulmonary: Diminished throughout but appears to be clear to auscultation bilaterally without crackles, wheezes, or rhonchi. Normal respiratory effort with no use of accessory muscles. Abdomen: Soft, bowel sounds present, nontender, nondistended. No hepatosplenomegaly or masses appreciated. Extremities: No clubbing, cyanosis, or edema. Skin: Normal temperature, turgor, and texture; no rash, ulcers, or subcutaneous nodules appreciated. Neurological: Cranial nerves grossly intact. Psychiatric: Alert oriented to person only. Moderate confusion with short-term memory recall deficit. Currently argumentative but not combative. Objective Labs Result Diagrams: 10/07/18 11:05 10/07/18 11:05 Labs: Laboratory Results - last 24 hr 10/07/18 15:55 Urine Color Yellow Urine Appearance Clear Urine pH 5.5 Ur Specific [place] 1.020 Urine Protein Negative Urine Glucose (UA) 2+ H Urine Ketones Negative Urine Occult Blood Negative Urine Nitrate Negative Urine Bilirubin Negative Urine Urobilinogen 1.0 Ur Leukocyte Esterase Negative Urine RBC None seen Urine WBC 1-5/hpf Ur Squamous Epith Cells None seen Urine Bacteria Many (>30) H Ur Culture Indicated? Cult not indicated Assessment & Plan Assessment & Plan narrative: Michele Barroso is a 77-year-old male with a past medical history significant for hypertension, hyperlipidemia, diabetes mellitus type 2, non-insulin using, chronic back pain with peripheral neuropathy, former smoker with ocn-lzxpj-gdyd lung cancer and metastases to the brain status post several rounds of chemotherapy and whole-brain radiation who presented for altered mental status. 1. Acute metabolic encephalopathy, present on admission. Active. -Likely secondary to advancing brain mets with surrounding vasogenic edema. Also contributing is glucocorticoids to treat brain swelling, if he is taking, and if not taking would also lead to further swelling and more confusion; and [employer] depressant medications such as oxycodone and lorazepam. -Limit amount of [employer] depressant medications. -Reorient frequently. Allow patient to be awake and stimulated throughout the day and sleep at night with minimal interruptions. -Continue seroquel 25 mg daily at bedtime and will titrate as needed. May use soft restraints if chemical restraints do not suffice. -UA does not appear infected but asked for this to be cultured even though did not reflex. Urine culture preliminarily has no growth. 2. 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 Active. -Patient is status post multiple types and rounds of chemotherapy and full brain radiation. Recently on immunotherapy with Keytruda x 1 round. -Discussed with oncologist at [facility], Dr. Saud Carvalho, who reviewed imaging and is unclear if metastatic lesions are increasing but reports significant increase in vasogenic/cerebral edema with compression of right ventricle. He recommends increasing Decadron from 4 mg to 8 mg every 6 hours and repeating imaging on Sunday10/11/2018. If at that time a edema is progressive or unchanged will await further recommendations from Dr. Carvalho. -[facility] team has been highly encouraging hospice for which the patient's family does not seem to be willing to consider until further discussion with oncologist. 3. Acute on chronic constipation, present on admission. Active. -Abdominal series demonstrated moderate colonic obstipation through the abdomen and pelvis bilaterally. -Implemented bowel regimen: Received dulcolax 10 mg x 1. Continue Colace 100 mg twice daily and MiraLax 17 g daily. Ordered senna and dulcolax suppository daily as needed for constipation. 4. Chronic atrial fibrillation, present on admission. Stable. -Currently rate controlled. -Continue carvedilol 12.5 mg twice daily. 5. Hypertension, chronic, present on admission. Stable. -Continue aspirin 325 mg daily, carvedilol 12.5 mg twice daily, furosemide 40 mg daily, and potassium chloride 20 mg daily. 6. Hyperlipidemia, chronic, present on admission. Stable. -Continue atorvastatin 10 mg daily at bedtime. 7. Diabetes mellitus type 2, non-insulin using, chronic, present on admission. Stable. -Hemoglobin A1c 5.9% in 04/2017. Ordered repeat hemoglobin A1c, pending. -Continue metformin 1000 mg daily in the morning and 500 mg daily before bedt camila. -Continue [facility] blood glucose checks and low-dose correctional scale insulin. -Continue regular diet as patient is not eating and want to continue to encourage/stimulate him to eat. 8. Hypothyroidism, chronic, present on admission. Stable. -Continue levothyroxine 125 mcg daily. 9. BPH, chronic, present on admission. Stable. -Continue doxazosin 4 mg daily. 10. GERD, chronic, present on admission. Stable. -Continue omeprazole 40 mg twice daily. 11. Chronic back pain with peripheral neuropathy, chronic, present on admission. Stable. -Continue home oxycodone 7.5 every 4 hours as needed for moderate to severe pain. 12. Restless legs syndrome, chronic, present on admission. Stable. -Continue ropinirole 2.5 mg daily at bedtime. Disposition: Likely to discharge in several days depending upon resolution of metabolic encephalopathy or if this is new normal due to advancing brain metastases with increasing cerebral edema and mass effect may need placement.
[2018-10-08] MEDS: QUETIAPINE 25 MG TABLET PO ×2 (14:58→21:07)
--- NOTE | 2018-10-08 15:20 | CM.DANOTE ---
DCP/Assessment: Reviewed chart. Patient is a 81yr old male admitted to [facility] with multiple complaints associated with brain CA w/mets. PCP listed is Allen Zaragoza/[facility] [place]. Primary payor is 1)Medicare 2)[facility]. Received verbal referral from Dr. Sheppard for SW to assist family with d/c planning needs. Per MD, patient's son/Ventura has been the one primarily at bedside. /Silver reports that son has been verbally aggressive towards her and staff. Initially, it was thought that patient would be admitted from ED for hospice informational visit? Per Dr. Sheppard family including spouse/Olamide have not current interest in hospice. Dr. Sheppard has been discussing case with patient's Oncologist via the telephone. Current treatment plan is for patient to continue steroids until Sunday10-11-18. At that time patient most likely will discharge home pending progress. Patient seen by therapy and cleared to return home with assist. AOC OPERATIONS INTELLIGENCE OFFICER attempted several times today to meet with patient and family. Initially, met with patient explained role and placed name/numbers on white board for d/c planning purposes. Later, met briefly with son and he requested that AOC OPERATIONS INTELLIGENCE OFFICER come back at another time. Then again, saw son speaking with nursing staff requesting that patient have no disruption's from staff while spouse helping him with pull up. AOC OPERATIONS INTELLIGENCE OFFICER asked son whom medical decision maker was for his Dad? Son became very defensive and reports I'm not telling you any of that. AOC OPERATIONS INTELLIGENCE OFFICER walked away and asked RN to let CM team know when spouse available. Patient with h/o dementia and currently with lung CA with mets to brain. Met alone with spouse/Olamide. She reports that current d/c plan is for patient to return home when stable. Olamide very pleasant and reports that she is medical POA for patient which would make sense. Olamide reports that patient uses walker at baseline. Patient also has scooter that he borrows from family which he likes to use as well. Spouse provides no mention of hospice during visit, nor did AOC OPERATIONS INTELLIGENCE OFFICER bring up. Provided spouse with senior resource guide for future reference. Spouse reports that they previously had [facility]. They were not happy with home health services and do not anticipate that they want to have them again. P: CM team following closely. As of today, spouse reports that she plans to take patient home when medically stable. CHRIS Spear Discharge Planning/Care Management Advanced directive, confirm from FAMILY Start: 10/07/18 16:48 Freq: Q24H Status: Active Protocol: Document 10/08/18 11:06 CLL (Rec: 10/08/18 11:15 CLL [id number]) Advance Directive, confirm on record Time 11:08 Person contacted family Copy received No CM Discharge Assessment Start: 10/08/18 14:56 Freq: Status: Active Protocol: Document 10/08/18 14:56 KJS (Rec: 10/08/18 15:20 KJS [id number]) Discharge Planning Assessment Assigned Ticketing Clerk CHRIS Spear Contact Information Olamide Grayson (spouse) [phone] Advance Directives? Yes History Provided By Patient Significant Other Medical Record Prior Living Arrangements House Household Members spouse family Type of transporation used prior to Relies on Others admit Independent with ADL's Yes: Uses walker at baseline. Is patient alert and oriented? No Needs Assistance With Meal Prep Managing Medications Home Chores / Shopping Caregiver for Another No DME Already Rented / Owned FWW / Walker Barriers to Discharge No Discharge Plan Home Transportation Arrangement Family Referrals Initiated Other Additional Comment Pending hospitalization and assessment of needs prior to d /c. Whiteboard Updated in Patient Room with Yes name and ext. # of Ticketing Clerk Review Status In Process Next Review Type Continued Stay Review
--- NOTE | 2018-10-08 15:29 | PC.NURSE ---
Post void residual scan after void was 174ml, no distension or discomfort observed.
[2018-10-08] MEDS: METFORMIN HCL 500 MG TABLET PO (17:09)
[2018-10-08 18:02] LABS: Hemoglobin A1C% w Est Avg Glu 6.6 % (4.0-6.0)
[2018-10-08] MEDS: HALOPERIDOL 5 MG/ML VIAL 2 MG IV (18:30)
[2018-10-08] MEDS: POLYETHYLENE GLYCOL 3350 17 GM POWD.PACK PO (19:31)
[2018-10-08] MEDS: ATORVASTATIN 10 MG TABLET PO (20:59)
[2018-10-08] MEDS: DEXAMETHASONE 4 MG TABLET 8 MG PO (21:00)
[2018-10-08] MEDS: LATANOPROST 0.005% OPHTH 2.5 ML 1 DROPS EYE-BOTH (21:01)
[2018-10-09] VITALS (9 sets, daily range): BP systolic 108–165; BP diastolic 67–78; PULSE 86–100; RESP 16–20; TEMP 36.1–36.4; O2SAT 94–98; BMI 25.7
[2018-10-09] MEDS: OXYCODONE/ACETAMINOPHEN 5/325 TABLET 1.5 TAB PO ×4 (00:17→20:24)
[2018-10-09] MEDS: DEXAMETHASONE 4 MG TABLET 8 MG PO ×4 (02:16→20:12)
--- NOTE | 2018-10-09 04:00 | PC.NURSE ---
patient refused vitals started getting annoyed and pulling arm away so i ceased
[2018-10-09] MEDS: SODIUM CHLORIDE 0.9% 1,000 ML 100 ML IV ×2 (05:13→15:29)
[2018-10-09] MEDS: LEVOTHYROXINE 125 MCG TABLET PO (06:41)
--- NOTE | 2018-10-09 07:03 | PM.PN.1 ---
Subjective Date Patient Seen: 10/09/18 Interval history: Michele Barroso is a 77-year-old male with a past medical history significant for hypertension, hyperlipidemia, diabetes mellitus type 2, non-insulin using, chronic back pain with peripheral neuropathy, former smoker with [id number]-ddgc lung cancer and metastases to the brain status post several rounds of chemotherapy and whole-brain radiation who presented for altered mental status. The patient is resting in bed comfortably eating breakfast. He is quiet agitated and complains about being in the hospital and wants to go home to his dog. He threatens that he is going to walk out of here today. He endorses that he feels cold and ?nobody will get be blankets? although he has over 10 blankets on his body. He is able to relay that it was recently mother's Day and that Otoniel Urbano is the president which is a new improvement and possibly indicative of steroid improving edema. He continues to be moderately confused and is alert and oriented to person only. He denies headache, shortness of breath, chest pain, abdominal pain, nausea, vomiting, fever, chills, dysuria, diarrhea or constipation. He is voiding and eliminating without difficulty. He or she is up ambulating without or with assistance. Exam Vital Signs (past 8 hours): - 10/08/18 23:55 10/09/18 03:00 Temperature 98.4 F Pulse Rate 90 Respiratory Rate 18 18 Blood Pressure 151/83 H Pulse Oximetry 95 Oxygen Delivery Method Room Air Oxygen Flow Rate 0 Narrative Exam Narrative: General: Elderly thin male sitting in bed and in no acute distress, appears chronically ill, moderate confusion with short-term memory recall deficit, alert oriented to person only, currently agitated and verbally insulting but not physically combative. HEENT: Normocephalic, atraumatic. External ears without defect. Pupils equal, round, and reactive to light. Anicteric sclerae, moist conjunctivae, and no lid lag. Neck: Supple with full range of motion. No jugular venous distension. No bruits. No lymphadenopathy or thyromegaly. Cardiovascular: Heart sounds distant but appears to be irregularly irregular without murmurs, rubs, or gallops appreciated. Pulmonary: Diminished throughout but appears to be clear to auscultation bilaterally without crackles, wheezes, or rhonchi. Normal respiratory effort with no use of accessory muscles. Abdomen: Soft, bowel sounds present, nontender, nondistended. No hepatosplenomegaly or masses appreciated. Extremities: No clubbing, cyanosis, or edema. Skin: Normal temperature, turgor, and texture; no rash, ulcers, or subcutaneous nodules appreciated. Neurological: Cranial nerves grossly intact. Psychiatric: Alert oriented to person only. Moderate confusion with short-term memory recall deficit. Currently agitated and verbally insulting at times but not physically combative. Objective Labs Result Diagrams: 10/07/18 11:05 10/07/18 11:05 Labs: Laboratory Results - last 24 hr 10/07/18 11:05 Hemoglobin A1c 6.6 H Assessment & Plan Assessment & Plan narrative: Michele Barroso is a 77-year-old male with a past medical history significant for hypertension, hyperlipidemia, diabetes mellitus type 2, non-insulin using, chronic back pain with peripheral neuropathy, former smoker with [id number]-pxner-eivs lung cancer and metastases to the brain status post several rounds of chemotherapy and whole-brain radiation who presented for altered mental status. 1. Acute metabolic encephalopathy, present on admission. Active. -Likely secondary to advancing brain mets with surrounding vasogenic edema. Also contributing is glucocorticoids to treat brain swelling, if he is taking, and if not taking would also lead to further swelling and more confusion; and [employer]GER [employer] depressant medications such as oxycodone and lorazepam. -Limit amount of [employer] depressant medications. -Reorient frequently. Allow patient to be awake and stimulated throughout the day and sleep at night with minimal interruptions. -Continue seroquel 25 mg daily at bedtime and will titrate as needed. May use soft restraints if chemical restraints do not suffice. -UA does not appear infected but asked for this to be cultured even though it did not reflex. Urine culture preliminarily growing Enterococcus. Will treat empirically with ceftriaxone pending identification sensitivities. May simply be asymptomatic bacteriuria as patient has no symptoms. However, due to abrupt onset metabolic encephalopathy which is likely from progressive brain metastases with cerebral edema, will treat empirically as true UTI to assure that this is not a contributing factor. 2. 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 Active. -Patient is status post multiple types and rounds of chemotherapy and full brain radiation. Recently on immunotherapy with Keytruda x 1 round. -Discussed with oncologist at [facility], Dr. Saud Carvalho, who reviewed imaging and is unclear if metastatic lesions are increasing but reports significant increase in vasogenic/cerebral edema with compression of right ventricle. He recommends increasing Decadron from 4 mg to 8 mg every 6 hours and repeating imaging on Sunday10/11/2018 to determine if the cerebral edema is progressive or unchanged and then will reconvene with his oncologist Dr. Carvalho cell #[phone]. -[facility] team has been highly encouraging hospice for which the patient's family does not seem to be willing to consider until further discussion with oncologist. Patient's family is meeting with hospice to discuss. 3. Acute on chronic constipation, present on admission. Active. -Abdominal series demonstrated moderate colonic obstipation through the abdomen and pelvis bilaterally. -Implemented bowel regimen: Received dulcolax 10 mg x 1. Continue Colace 100 mg twice daily and MiraLax 17 g daily. Ordered senna and dulcolax suppository daily as needed for constipation. 4. Chronic atrial fibrillation, present on admission. Stable. -Currently rate controlled. -Continue carvedilol 12.5 mg twice daily. 5. Hypertension, chronic, present on admission. Stable. -Continue aspirin 325 mg daily, carvedilol 12.5 mg twice daily, furosemide 40 mg daily, and potassium chloride 20 mg daily. 6. Hyperlipidemia, chronic, present on admission. Stable. -Continue atorvastatin 10 mg daily at bedtime. 7. Diabetes mellitus type 2, non-insulin using, chronic, present on admission. Stable. -Hemoglobin A1c 5.9% in 04/2017. Ordered repeat hemoglobin A1c, pending. -Continue metformin 1000 mg daily in the morning and 500 mg daily before bedtime. -Continue [facility] blood glucose checks and low-dose correctional scale insulin. -Continue regular diet as patient is not eating and want to continue to encourage/stimulate him to eat. 8. Hypothyroidism, chronic, present on admission. Stable. -Continue levothyroxine 125 mcg daily. 9. BPH, chronic, present on admission. Stable. -Continue doxazosin 4 mg daily. 10. GERD, chronic, present on admission. Stable. -Continue omeprazole 40 mg twice daily. 11. Chronic back pain with peripheral neuropathy, chronic, present on admission. Stable. -Continue home oxycodone 7.5 every 4 hours as needed for moderate to severe pain. 12. Restless legs syndrome, chronic, present on admission. Stable. -Continue ropinirole 2.5 mg daily at bedtime. Disposition: Likely to discharge in several days depending upon improvement or resolution of metabolic encephalopathy and if this is new normal mentation due to advancing brain metastases with increasing cerebral edema and mass effect he will likely need placement and or comfort care/hospice.
[2018-10-09] MEDS: DOXAZOSIN 4 MG TABLET PO (08:04)
[2018-10-09] MEDS: PANTOPRAZOLE 40 MG TABLET PO ×2 (08:07→20:14)
[2018-10-09] MEDS: DOCUSATE 100 MG CAPSULE PO ×2 (08:08→20:13)
[2018-10-09] MEDS: CARVEDILOL 12.5 MG TABLET PO ×2 (08:08→20:12)
[2018-10-09] MEDS: POLYETHYLENE GLYCOL 3350 17 GM POWD.PACK PO (08:09)
[2018-10-09] MEDS: QUETIAPINE 25 MG TABLET PO ×2 (08:09→20:12)
[2018-10-09] MEDS: DORZOLAMIDE/TIMOLOL OPHTH 10 ML 1 DROPS EYE-BOTH ×2 (08:10→20:14)
[2018-10-09] MEDS: FUROSEMIDE 40 MG TABLET PO (08:11)
[2018-10-09] MEDS: HEPARIN 5,000 UNIT/ML VIAL 5000 UNIT SUBCUT ×2 (08:16→20:14)
[2018-10-09] MEDS: INSULIN ASPART 100 UNIT/ML INSULN PEN SUBCUT ×3 (08:19→16:46)
[2018-10-09] MEDS: METFORMIN HCL 500 MG TABLET 1000 MG PO (08:24)
--- NOTE | 2018-10-09 10:11 | PC.NURSE ---
Patient alert and oriented to self/birthday, confusion, short term memory loss. Use of call light intermittent, ongoing encouragement to use call hernandez. Bed alarm in place. Voided 400ml this am, refused bladder scan this am. Will re-approach. Urine preliminary +, alerted MD Dr. Sheppard with primary RN Estephania, no changes at this time. Some agitation this am as evidenced by raised voice, stating wanting to leave. Accepting of am medication with re-approach x1. Walking with fww to [place], his gait has improved in steadiness.
--- NOTE | 2018-10-09 11:09 | PC.NURSE ---
Addendum entered by Estephania Dye R.N. 10/09/18 15:12: Pt states that he did have a bm a couple of days ago but is uncertain. He is confused and family really did not know the last time he went. Pt has been getting stool softners and miralaax. He is not having any abdominal distention or cramping. He has been comfortable. Will continue to give bowel medication and try some pruine juice Original Note: Pt agitated this morning, states that none of the staff is helping him, that he was not given his percocet, and stating to his family that he was going to call oyster harvester. Pt has not attempted at all to try and get up on his own or walk. He will stand usually when he has to use the bathroom. Pt called his family and talk to his son, son seems to get patient more agitated when he talks to him or interacts with patient. Yesterday this RN asked son and his to give pt a break and he did become slightly defensive but left for a couple of hours. Pt has voided 400cc this am and then another 200cc with an unmeasured void. He was given 2 percocet this morning at 0800.
--- NOTE | 2018-10-09 13:04 | P.PN_ITS ---
Subjective Date Patient Seen: 10/09/18 Interval history: Michele Barroso is a 77-year-old male with a past medical history significant for hypertension, hyperlipidemia, diabetes mellitus type 2, non-insulin using, chronic back pain with peripheral neuropathy, former smoker with [id number]-[id number] lung cancer and metastases to the brain status post several rounds of chemotherapy and whole-brain radiation who presented for altered mental status. The patient is resting in bed comfortably eating breakfast. He is quiet agitated and complains about being in the hospital and wants to go home to his dog. He threatens that he is going to walk out of here today. He endorses that he feels cold and ?nobody will get be blankets? although he has over 10 blankets on his body. He is able to relay that it was recently mother's Day and that Otoniel Urbano is the president which is a new improvement and possibly indicative of steroid improving edema. He continues to be moderately confused and is alert and oriented to person only. He denies headache, shortness of breath, chest pain, abdominal pain, nausea, vomiting, fever, chills, dysuria, diarrhea or constipation. He is voiding and eliminating without difficulty. He or she is up ambulating without or with assistance. Exam Vital Signs (past 8 hours): - 10/08/18 23:55 10/09/18 03:00 Temperature 98.4 F Pulse Rate 90 Respiratory Rate 18 18 Blood Pressure 151/83 H Pulse Oximetry 95 Oxygen Delivery Method Room Air Oxygen Flow Rate 0 Narrative Exam Narrative: General: Elderly thin male sitting in bed and in no acute distress, appears chronically ill, moderate confusion with short-term memory recall deficit, alert oriented to person only, currently agitated and verbally insulting but not physically combative. HEENT: Normocephalic, atraumatic. External ears without defect. Pupils equal, round, and reactive to light. Anicteric sclerae, moist conjunctivae, and no lid lag. Neck: Supple with full range of motion. No jugular venous distension. No bruits. No lymphadenopathy or thyromegaly. Cardiovascular: Heart sounds distant but appears to be irregularly irregular without murmurs, rubs, or gallops appreciated. Pulmonary: Diminished throughout but appears to be clear to auscultation bilaterally without crackles, wheezes, or rhonchi. Normal respiratory effort with no use of accessory muscles. Abdomen: Soft, bowel sounds present, nontender, nondistended. No hepatosplenomegaly or masses appreciated. Extremities: No clubbing, cyanosis, or edema. Skin: Normal temperature, turgor, and texture; no rash, ulcers, or subcutaneous nodules appreciated. Neurological: Cranial nerves grossly intact. Psychiatric: Alert oriented to person only. Moderate confusion with short-term memory recall deficit. Currently agitated and verbally insulting at times but not physically combative. Objective Labs Result Diagrams: 10/07/18 11:05 10/07/18 11:05 Labs: Laboratory Results - last 24 hr 10/07/18 11:05 Hemoglobin A1c 6.6 H Assessment & Plan Assessment & Plan narrative: Michele Barroso is a 77-year-old male with a past medical history significant for hypertension, hyperlipidemia, diabetes mellitus type 2, non-insulin using, chronic back pain with peripheral neuropathy, former smoker with cqr-cnous-tjvr lung cancer and metastases to the brain status post several rounds of chemotherapy and whole-brain radiation who presented for altered mental status. 1. Acute metabolic encephalopathy, present on admission. Active. -Likely secondary to advancing brain mets with surrounding vasogenic edema. Also contributing is glucocorticoids to treat brain swelling, if he is taking, and if not taking would also lead to further swelling and more confusion; and LAB DIRECTOR depressant medications such as oxycodone and lorazepam. -Limit amount of LAB DIRECTOR depressant medications. -Reorient frequently. Allow patient to be awake and stimulated throughout the day and sleep at night with minimal interruptions. -Continue seroquel 25 mg daily at bedtime and will titrate as needed. May use soft restraints if chemical restraints do not suffice. -UA does not appear infected but asked for this to be cultured even though it did not reflex. Urine culture preliminarily growing Enterococcus. Will treat empirically with ceftriaxone pending identification sensitivities. May simply be asymptomatic bacteriuria as patient has no symptoms. However, due to abrupt onset metabolic encephalopathy which is likely from progressive brain metastases with cerebral edema, will treat empirically as true UTI to assure that this is not a contributing factor. 2. 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 Active. -Patient is status post multiple types and rounds of chemotherapy and full brain radiation. Recently on immunotherapy with Keytruda x 1 round. -Discussed with oncologist at [facility], Dr. Saud Carvalho, who reviewed imaging and is unclear if metastatic lesions are increasing but reports significant increase in vasogenic/cerebral edema with compression of right ventricle. He recommends increasing Decadron from 4 mg to 8 mg every 6 hours and repeating imaging on Sunday10/11/2018 to determine if the cerebral edema is progressive or unchanged and then will reconvene with his oncologist Dr. Carvalho cell #[phone]. -[facility] team has been highly encouraging hospice for which the patient's family does not seem to be willing to consider until further discussion with oncologist. Patient's family is meeting with hospice to discuss. 3. Acute on chronic constipation, present on admission. Active. -Abdominal series demonstrated moderate colonic obstipation through the abdomen and pelvis bilaterally. -Implemented bowel regimen: Received dulcolax 10 mg x 1. Continue Colace 100 mg twice daily and MiraLax 17 g daily. Ordered senna and dulcolax suppository daily as needed for constipation. 4. Chronic atrial fibrillation, present on admission. Stable. -Currently rate controlled. -Continue carvedilol 12.5 mg twice daily. 5. Hypertension, chronic, present on admission. Stable. -Continue aspirin 325 mg daily, carvedilol 12.5 mg twice daily, furosemide 40 mg daily, and potassium chloride 20 mg daily. 6. Hyperlipidemia, chronic, present on admission. Stable. -Continue atorvastatin 10 mg daily at bedtime. 7. Diabetes mellitus type 2, non-insulin using, chronic, present on admission. Stable. -Hemoglobin A1c 5.9% in 04/2017. Ordered repeat hemoglobin A1c, pending. -Continue metformin 1000 mg daily in the morning and 500 mg daily before bedtime. -Continue [facility] blood glucose checks and low-dose correctional scale insulin. -Continue regular diet as patient is not eating and want to continue to encourage/stimulate him to eat. 8. Hypothyroidism, chronic, present on admission. Stable. -Continue levothyroxine 125 mcg daily. 9. BPH, chronic, present on admission. Stable. -Continue doxazosin 4 mg daily. 10. GERD, chronic, present on admission. Stable. -Continue omeprazole 40 mg twice daily. 11. Chronic back pain with peripheral neuropathy, chronic, present on admission. Stable. -Continue home oxycodone 7.5 every 4 hours as needed for moderate to severe pain. 12. Restless legs syndrome, chronic, present on admission. Stable. -Continue ropinirole 2.5 mg daily at bedtime. Disposition: Likely to discharge in several days depending upon improvement or resolution of metabolic encephalopathy and if this is new normal mentation due to advancing brain metastases with increasing cerebral edema and mass effect he will likely need placement and or comfort care/hospice.
--- NOTE | 2018-10-09 14:15 | PC.NURSE ---
Pt voided 400ml, then bladder scanned pt at 410ml, urinated after approx. 600ml more after. Denies discomfort, non-tender. No distention observed.
--- NOTE | 2018-10-09 14:21 | PT.IPTN ---
Current Diagnoses Metabolic encephalopathy (10/08/18) Physical Therapy Treatment Note M2 PT-IP Current Condition Start: 10/08/18 10:29 Freq: NEEDED Status: Active Protocol: Document 10/08/18 12:22 DLM (Rec: 10/08/18 17:38 DLM [email or web address]) Physical Therapy Current Condition Current Condition Evaluation Date 10/08/18 Treatment Diagnosis lung cancer with mets to brain , confusion, generalized weakness Onset Date 10/07/18 Precautions Other Precautions cognitive impairments M3 PT-IP Subjective Start: 10/08/18 10:29 Freq: NEEDED Status: Active Protocol: Document 10/09/18 14:21 DLM (Rec: 10/09/18 14:29 DLM [email or web address]) Subjective Physical Therapy Visit Type Type Treatment Note Visit Start Time 13:45 Visit Stop Time 14:21 Total Visit Minutes 36 Number of LANDSCAPE DRAFTER Visits 0 Physical Therapy Visit Comments Patient Comments He c/o back pain by the end of his walk Therapy Pain Assessment Pain When Pain Assessed After Treatment Pain Present Pain Present Pain Reported Location Lower Posterior Back Intensity 5 Scale Used Numeric (1 - 10) Description Aching Pain Management Techniques Re-positioning M4 PT-IP Mobility and Gait Start: 10/08/18 10:29 Freq: NEEDED Status: Active Protocol: Document 10/09/18 14:21 DLM (Rec: 10/09/18 14:29 DL [email or web address]) PT-Bed Mobility Assessment Rolling Level of Assist Independent Supine to Sit Supine to Sit Minimal Assistance Scooting Scooting to Edge of Bed Independent PT-Transfer Assessment Sit to and From Stand Sit to and from Stand Standby Assistance Use of Upper Extremities Equipment Transfer Assistive Device Gait Belt Front Wheeled Walker Transfers Transfer Destination Chair Toilet Transfer Technique Stand Step Pivot Transfer Ability Level of Assist Standby Assistance Use of Upper Extremities Comments Mobility Comments Pt left up in recliner with chair alarm on Gait Assessment Gait Gait Assistance Required: Standby Assistance Distance (Feet) 140 Assistive Devices Assistive Device Gait Belt Front Wheeled Walker Gait Deviations General Gait Pattern Flexed Trunk Factors Limiting Gait Function Factors Limiting Gait Function Decreased Activity Tolerance Comments Gait Comments adjusted his FWW taller in attempt to decrease his back pain while ambulating, initially he declined to use the fWW for gait but then grabbed it and decided he would use it PT-Balance Assessment Sitting Balance and Reactions Static Sitting Balance Ability Good Dynamic Sitting Balance Ability Good Standing Balance and Reactions Static Standing Balance Ability Good Dynamic Standing Balance Ability Good Device Used FWW M5 PT-IP Objective Assessments Start: 10/08/18 10:29 Freq: NEEDED Status: Active Protocol: Document 10/08/18 12:22 DLM (Rec: 10/08/18 17:38 DL [email or web address]) Orientation Orientation/Cognition Level of Alertness Confusional State Orientation Name Language Function Ability No Deficits Noted Safety Awareness Decreased Safety Awareness Memory Description Short Term Impaired Comments difficult to fully assess cognition because pt becomes agitated, pt initially happy to see his Son arrive but then became agitated with his Son, pt gets agitated with too much stimulation Gross Range of Motion Upper Extremity ROM Assessment Within Functional Limits Lower Extremity ROM Assessment Within Functional Limits Strength Upper Extremity Strength Assessment Within Functional Limits Lower Extremity Strength Assessment Within Functional Limits Comments Strength Comments pt unable to participate in manual muscle testing so only assessed functional strength Coordination Assessment Gross Coordination Gross Coordination WNL Sensation Assessment Comments Sensation Comments unable to assess Muscle Tone Muscle Tone WNL Yes M6 PT-IP Treatment Start: 10/08/18 10:29 Freq: NEEDED Status: Active Protocol: Document 10/09/18 14:21 DLM (Rec: 10/09/18 14:29 DL [email or web address]) Physical Therapy Treatment Education Education Provided Safety Other Treatments Other Treatment Performed pt does better by minimizing number of staff and activity around him in his room, pt calm and cooperative with care , able to reason simple concepts with him, pt inclined to initially be resistant to ideas but then will agree to it, he is calm, no family present in room today, pt able to urinate on toilet this visit (seated) M7 PT-IP Assessment and Plan Start: 10/08/18 10:29 Freq: NEEDED Status: Active Protocol: Document 10/09/18 14:21 DLM (Rec: 10/09/18 14:29 DL [email or web address]) PT Summary Assessment and Plan Summary Impairments Cognition Bed Mobility Transfers Gait Activity Tolerance Progress Towards Goals Progressing Toward Goals Assessment Summary Michele is alert and willing to participate in physical therapy. He tolerated gait in the ross well with fWW. He continues to be cognitively impaired but less agitated today. Pt calm throughout visit. He continues to progress with his mobility and gait. Continue to plan for discharge home with his to assist him. Goals Bed Mobility Goal Independent Transfer Goal Independent Gait Goal Standby Assistance Gait Distance 100 feet Days to Meet Goals 5 Frequency of Treatment Frequency Of Treatment Once a Day Treatment Plan Physical Therapy Treatment Plan Bed Mobility Training Transfer Training Gait Training Therapeutic Exercise Discharge Planning Recommendations To Nursing Amount of Assist Needed 1 Person Assist Discharge Recommendations PT Discharge Recommendations Home with 18/12 Assist
[2018-10-09] MEDS: METFORMIN HCL 500 MG TABLET PO (16:47)
[2018-10-09] MEDS: CEFTRIAXONE 2 GM/50 ML FROZ.PIGGY IV (19:10)
[2018-10-09] MEDS: ATORVASTATIN 10 MG TABLET PO (20:12)
[2018-10-09] MEDS: LATANOPROST 0.005% OPHTH 2.5 ML 1 DROPS EYE-BOTH (20:14)
[2018-10-09] MEDS: LORazepam 1 MG TABLET PO (20:25)
[2018-10-10] VITALS (7 sets, daily range): BP systolic 122–149; BP diastolic 74–98; PULSE 89–102; RESP 16–20; TEMP 36.3–36.7; O2SAT 94–97
--- NOTE | 2018-10-10 00:35 | PC.NURSE ---
2300- Pt admit for AMS w/ hx of cancer still active at this time. 1:1 sitter in room for pt's safety as he is only oriented to self at this time. NS running as ordered; moving w/ walker 1PA to [facility]. Eating HH diet at this time however, stated pt could 'eat whatever he wanted' to provide comfort and refrain from agitating him any further. VSS w/ BG checks taking place.
[2018-10-10] MEDS: DEXAMETHASONE 4 MG TABLET 8 MG PO ×4 (01:26→19:44)
[2018-10-10] MEDS: SODIUM CHLORIDE 0.9% 1,000 ML 100 ML IV ×2 (01:27→22:57)
[2018-10-10] MEDS: OXYCODONE/ACETAMINOPHEN 5/325 TABLET 1.5 TAB PO ×3 (04:25→19:42)
[2018-10-10] MEDS: LEVOTHYROXINE 125 MCG TABLET PO (04:25)
[2018-10-10] MEDS: FUROSEMIDE 40 MG TABLET PO (09:59)
[2018-10-10] MEDS: PANTOPRAZOLE 40 MG TABLET PO ×2 (09:59→19:46)
[2018-10-10] MEDS: DOXAZOSIN 4 MG TABLET PO (09:59)
[2018-10-10] MEDS: POTASSIUM CHLORIDE 20 MEQ TAB PO (09:59)
[2018-10-10] MEDS: DOCUSATE 100 MG CAPSULE PO ×2 (09:59→19:43)
[2018-10-10] MEDS: METFORMIN HCL 500 MG TABLET 1000 MG PO (09:59)
[2018-10-10] MEDS: HEPARIN 5,000 UNIT/ML VIAL 5000 UNIT SUBCUT ×2 (09:59→19:45)
[2018-10-10] MEDS: DORZOLAMIDE/TIMOLOL OPHTH 10 ML 1 DROPS EYE-BOTH ×2 (09:59→19:44)
[2018-10-10] MEDS: INSULIN ASPART 100 UNIT/ML INSULN PEN SUBCUT ×4 (10:00→19:47)
[2018-10-10] MEDS: ASPIRIN EC 325 MG TABLET PO (10:00)
[2018-10-10] MEDS: POLYETHYLENE GLYCOL 3350 17 GM POWD.PACK PO (10:00)
[2018-10-10] MEDS: CARVEDILOL 12.5 MG TABLET PO ×2 (10:00→19:44)
--- NOTE | 2018-10-10 11:38 | PM.PN.1 ---
Subjective Date Patient Seen: 10/10/18 Interval history: 77-year-old male admitted to the hospital with altered mental status. Patient has known brain Mets. His Decadron has been adjusted. He will have a repeat set CT of the head tomorrow for re-evaluation. Today the patient is calmer but at times impulsive he appears to be unsteady on his feet he urinated on the floor on aware and stepping in the urine. He knows he is in the hospital although he can't state the name of the hospital he stated the name of the president. At times he seems agitated and nearly hospital. Exam Vital Signs (past 8 hours): - 10/10/18 04:32 10/10/18 09:13 10/10/18 09:50 Temperature 97.3 F L 98.1 F Pulse Rate 89 100 H Respiratory Rate 16 18 Blood Pressure 149/89 H 122/98 H Pulse Oximetry 94 97 97 Oxygen Delivery Method Room Air Oxygen Flow Rate 0 Narrative Exam Narrative: Elderly male in no obvious distress Lungs: Clear to auscultation Cardiac exam: Tachycardic regular rate and rhythm normal S1-S2 Abdomen: Soft nontender nondistended Extremities: Trace edema Objective Labs Result Diagrams: 10/07/18 11:05 10/07/18 11:05 Assessment & Plan Assessment & Plan narrative: Acute metabolic encephalopathy, present on admission. Active. -Likely secondary to advancing brain mets with surrounding vasogenic edema. Also contributing is glucocorticoids to treat brain swelling, if he is taking, and if not taking would also lead to further swelling and more confusion; and RET[employer]OR depressant medications such as oxycodone and lorazepam. -Limit amount of RETAIL DIRECTOR depressant medications. -Reorient frequently. Allow patient to be awake and stimulated throughout the day and sleep at night with minimal interruptions. -Continue seroquel 25 mg daily at bedtime and will titrate as needed. May use soft restraints if chemical restraints do not suffice. -UA does not appear infected but asked for this to be cultured even though it did not reflex. Urine culture preliminarily growing Enterococcus. Will treat empirically with ceftriaxone pending identification sensitivities. May simply be asymptomatic bacteriuria as patient has no symptoms. However, due to abrupt onset metabolic encephalopathy which is likely from progressive brain metastases with cerebral edema, will treat empirically as true UTI to assure that this is not a contributing factor. 2. 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 Active. -Patient is status post multiple types and rounds of chemotherapy and full brain radiation. Recently on immunotherapy with Keytruda x 1 round. -Discussed with oncologist at [facility], Dr. Saud Carvalho, who reviewed imaging and is unclear if metastatic lesions are increasing but reports significant increase in vasogenic/cerebral edema with compression of right ventricle. He recommends increasing Decadron from 4 mg to 8 mg every 6 hours and repeating imaging on Sunday10/11/2018 to determine if the cerebral edema is progressive or unchanged and then will reconvene with his oncologist Dr. Carvalho cell #[phone]. -[facility] team has been highly encouraging hospice for which the patient's family does not seem to be willing to consider until further discussion with oncologist. Patient's family is meeting with hospice to discuss. 3. Acute on chronic constipation, present on admission. Active. -Abdominal series demonstrated moderate colonic obstipation through the abdomen and pelvis bilaterally. -Implemented bowel regimen: Received dulcolax 10 mg x 1. Continue Colace 100 mg twice daily and MiraLax 17 g daily. Ordered senna and dulcolax suppository daily as needed for constipation. 4. Chronic atrial fibrillation, present on admission. Stable. -Currently rate controlled. -Continue carvedilol 12.5 mg twice daily. 5. Hypertension, chronic, present on admission. Stable. -Continue aspirin 325 mg daily, carvedilol 12.5 mg twice daily, furosemide 40 mg daily, and potassium chloride 20 mg daily. 6. Hyperlipidemia, chronic, present on admission. Stable. -Continue atorvastatin 10 mg daily at bedtime. 7. Diabetes mellitus type 2, non-insulin using, chronic, present on admission. Stable. -Hemoglobin A1c 5.9% in 04/2017. Ordered repeat hemoglobin A1c, pending. -Continue metformin 1000 mg daily in the morning and 500 mg daily before bedtime. -Continue [facility] blood glucose checks and low-dose correctional scale insulin. -Continue regular diet as patient is not eating and want to continue to encourage/stimulate him to eat. 8. Hypothyroidism, chronic, present on admission. Stable. -Continue levothyroxine 125 mcg daily. 9. BPH, chronic, present on admission. Stable. -Continue doxazosin 4 mg daily. 10. GERD, chronic, present on admission. Stable. -Continue omeprazole 40 mg twice daily. 11. Chronic back pain with peripheral neuropathy, chronic, present on admission. Stable. -Continue home oxycodone 7.5 every 4 hours as needed for moderate to severe pain. 12. Restless legs syndrome, chronic, present on admission. Stable. -Continue ropinirole 2.5 mg daily at bedtime.
--- NOTE | 2018-10-10 14:50 | PT.IPTN ---
Current Diagnoses Metabolic encephalopathy (10/08/18) Physical Therapy Treatment Note M2 PT-IP Current Condition Start: 10/08/18 10:29 Freq: NEEDED Status: Active Protocol: Document 10/08/18 12:22 DLM (Rec: 10/08/18 17:38 DLM [id number]) Physical Therapy Current Condition Current Condition Evaluation Date 10/08/18 Treatment Diagnosis lung cancer with mets to brain , confusion, generalized weakness Onset Date 10/07/18 Precautions Other Precautions cognitive impairments M3 PT-IP Subjective Start: 10/08/18 10:29 Freq: NEEDED Status: Active Protocol: Document 10/10/18 14:26 SA (Rec: 10/10/18 14:50 [id number]) Subjective Physical Therapy Visit Type Type Treatment Note Visit Start Time 13:50 Visit Stop Time 14:16 Total Visit Minutes 26 Number of WOOD BLOCK ARTIST Visits 1 Physical Therapy Visit Comments Patient Comments Pt recieved pain meds for back pain at start of session, when questionsed about back pain 10 min later pt states he has no pain. Therapy Pain Assessment Pain When Pain Assessed During Mobility Pain Present Pain Present Pain Reported Location Lower Posterior Back Pain Management Techniques Re-positioning Timing of Activity with Medications M4 PT-IP Mobility and Gait Start: 10/08/18 10:29 Freq: NEEDED Status: Active Protocol: Document 10/10/18 14:26 SA (Rec: 10/10/18 14:50 [id number]) PT-Bed Mobility Assessment Rolling Level of Assist Independent Supine to Sit Supine to Sit Contact Guard Assistance Sit to Supine Sit to Supine Contact Guard Assistance Scooting Scooting to Edge of Bed Independent PT-Transfer Assessment Sit to and From Stand Sit to and from Stand Standby Assistance Use of Upper Extremities Equipment Transfer Assistive Device Gait Belt Front Wheeled Walker Orthotic/Prosthetic Devices or Brace: No Transfers Transfer Destination Bed Chair Transfer Ability Level of Assist Standby Assistance Use of Upper Extremities Comments Mobility Comments CGA with most bed mobility today and prefers to be allowed to move without assistance. Inappropriate answers to most questions and unable to quantify pain level but references and daughter in law who were present at start of session. Gait Assessment Gait Gait Assistance Required: Standby Assistance Contact Guard Assist Distance (Feet) 85 Assistive Devices Assistive Device Gait Belt Front Wheeled Walker Orthotic/Prosthetic Devices or Brace: No Gait Deviations General Gait Pattern Decreased Feet Clearance Flexed Trunk Factors Limiting Gait Function Factors Limiting Gait Function Decreased Activity Tolerance Comments Gait Comments Gait training around room to/ from bathroom, to window and to doorway. Did not want to leave room as it was too noisy in [place]ss. SBA to CGA with turning and FWW management. Pt stood at sink to wash/dry hands, no LOB. PT-Balance Assessment Sitting Balance and Reactions Static Sitting Balance Ability Good Dynamic Sitting Balance Ability Good Standing Balance and Reactions Static Standing Balance Ability Good Dynamic Standing Balance Ability Good Device Used FWW Comments Other Balance Tests/Deviations/Treatment Pt completed SLS at FWW for : donning clean pants. M5 PT-IP Objective Assessments Start: 10/08/18 10:29 Freq: NEEDED Status: Active Protocol: Document 10/08/18 12:22 DLM (Rec: 10/08/18 17:38 DL [id number]) Orientation Orientation/Cognition Level of Alertness Confusional State Orientation Name Language Function Ability No Deficits Noted Safety Awareness Decreased Safety Awareness Memory Description Short Term Impaired Comments difficult to fully assess cognition because pt becomes agitated, pt initially happy to see his Son arrive but then became agitated with his Son, pt gets agitated with too much stimulation Gross Range of Motion Upper Extremity ROM Assessment Within Functional Limits Lower Extremity ROM Assessment Within Functional Limits Strength Upper Extremity Strength Assessment Within Functional Limits Lower Extremity Strength Assessment Within Functional Limits Comments Strength Comments pt unable to participate in manual muscle testing so only assessed functional strength Coordination Assessment Gross Coordination Gross Coordination WNL Sensation Assessment Comments Sensation Comments unable to assess Muscle Tone Muscle Tone WNL Yes M6 PT-IP Treatment Start: 10/08/18 10:29 Freq: NEEDED Status: Active Protocol: Document 10/10/18 14:26 (Rec: 10/10/18 14:50 [id number]) Physical Therapy Treatment Education Education Provided Safety Other Treatments Other Treatment Performed Pt with improved behaviors with 1:1 treatment vs with family in room, was able to make needs known and respond appropriately to cues/direction . M7 PT-IP Assessment and Plan Start: 10/08/18 10:29 Freq: NEEDED Status: Active Protocol: Document 10/10/18 14:26 (Rec: 10/10/18 14:50 [id number]) PT Summary Assessment and Plan Summary Impairments Cognition Bed Mobility Transfers Gait Activity Tolerance Assessment Summary Pt willing to work with PT this afternoon with improved participation when distractions were eliminated. No LOB but needs cues for safety and movement planning when mobilizing with FWW. Pt tolerating gait and mobility well with no mention of back pain during mobility tasks. Frequency of Treatment Frequency Of Treatment Once a Day Treatment Plan Physical Therapy Treatment Plan Bed Mobility Training Transfer Training Gait Training Therapeutic Exercise Discharge Planning Recommendations To Nursing Amount of Assist Needed 1 Person Assist Discharge Recommendations PT Discharge Recommendations Home with 24/ Assist
[2018-10-10] MEDS: CEFTRIAXONE 2 GM/50 ML FROZ.PIGGY IV (18:26)
[2018-10-10] MEDS: LORazepam 1 MG TABLET PO (19:42)
[2018-10-10] MEDS: QUETIAPINE 25 MG TABLET 50 MG PO (19:43)
[2018-10-10] MEDS: ATORVASTATIN 10 MG TABLET PO (19:44)
[2018-10-10] MEDS: LATANOPROST 0.005% OPHTH 2.5 ML 1 DROPS EYE-BOTH (19:45)
[2018-10-10] MEDS: INSULIN GLARGINE 100 UNIT/ML 3ML PEN 20 UNIT SUBCUT (19:46)
[2018-10-11] VITALS (9 sets, daily range): BP systolic 131–173; BP diastolic 51–105; PULSE 91–106; RESP 18; TEMP 36.2–36.9; O2SAT 92–99
[2018-10-11] MEDS: DEXAMETHASONE 4 MG TABLET 8 MG PO ×4 (01:56→19:40)
[2018-10-11] MEDS: LEVOTHYROXINE 125 MCG TABLET PO (05:44)
[2018-10-11] MEDS: OXYCODONE/ACETAMINOPHEN 5/325 TABLET 1.5 TAB PO ×3 (05:44→19:52)
--- NOTE | 2018-10-11 06:02 | PC.NURSE ---
Shift Note: Received pt from evening shift. Pt has GENERAL LEDGER BOOKKEEPER assisting him. Pt gets irritable easily, is possibly hallucinating and has difficulty expressing himself. For instance asks for dry towels when he appears to mean warm blankets and asked about objects crowding into his bathroom and asking this RN and GENERAL LEDGER BOOKKEEPER about what is going into his bathroom. Pt attempted to d/c IV line during the night but GENERAL LEDGER BOOKKEEPER was able to convince pt to leave it in place. During medication administration this AM, this RN attempted to assist pt with straw on water tumbler, pt grabbed this RN's thumb and pulled it away from his cup but let go before inflicting damage. Pt requested the lid and straw to be removed, and drank without difficulty from the cup. Pt continues to be a high fall risk d/t mentation and lack of safety awareness. Will continue to monitor and pass on findings to day shift.
--- NOTE | 2018-10-11 09:12 | DI.CT.S_ITS ---
PROCEDURE: CT HEAD/BRAIN WO/W CON INDICATIONS: r/o cerebral edema, patient with known brain mets TECHNIQUE: 4.5 mm thick angled axial sections acquired from the foramen magnum to the vertex both before and after the administration of intravenous contrast, with coronal and sagittal reformats. For radiation dose reduction, the following was used: automated exposure control, adjustment of mA and/or kV according to patient size. COMPARISON: [facility], CT, CT HEAD/BRAIN WO CON, 10/01/2018, 13:17. [facility], CT, CT HEAD/BRAIN WO CON, 10/07/2018, 10:36. FINDINGS: Image quality: Excellent. CSF spaces: Basal cisterns are patent. No extra-axial fluid collections. Ventricles are symmetric in size and shape. Brain: Heterogeneous enhancing known metastatic lesions involving the right parietal lobe, left occipital lobe and left cerebral hemisphere are not severely changed in size or contour compared to 10/01/2018. Vasogenic edema associated with the metastatic lesions is stable compared to prior examinations. No significant mass effect is associated with the vasogenic edema. There is cerebral volume loss for age. There is periventricular white matter chronic small vessel ischemic change. There is intracranial internal carotid artery and vertebral artery atherosclerosis. Skull and face: Calvarium and visualized facial bones appear intact, without suspicious lesions. Sinuses: Visualized sinuses are clear. Scattered opacities in the mastoid air cells bilaterally. IMPRESSION: 1. Right parietal, left occipital and left cerebellar hemisphere metastatic lesion is not significantly changed compared to 10/01/2018 and 10/07/2018. 2. Vasogenic edema associated with the metastatic lesions is unchanged compared to prior examinations. No significant mass effect associated with the vasogenic edema. 3. No intracranial hemorrhage. Dictated by: Azra Driscoll MD, PhD on 10/11/2018 at 9:29 Approved by: Azra Driscoll MD, PhD on 10/11/2018 at 9:41
[2018-10-11] MEDS: ASPIRIN EC 325 MG TABLET PO (09:49)
[2018-10-11] MEDS: DOCUSATE 100 MG CAPSULE PO ×2 (09:49→19:42)
[2018-10-11] MEDS: DOXAZOSIN 4 MG TABLET PO (09:49)
[2018-10-11] MEDS: FUROSEMIDE 40 MG TABLET PO (09:49)
[2018-10-11] MEDS: HEPARIN 5,000 UNIT/ML VIAL 5000 UNIT SUBCUT ×2 (09:49→20:51)
[2018-10-11] MEDS: QUETIAPINE 25 MG TABLET 50 MG PO ×2 (09:49→19:41)
[2018-10-11] MEDS: POTASSIUM CHLORIDE 20 MEQ TAB PO (09:49)
[2018-10-11] MEDS: CARVEDILOL 12.5 MG TABLET PO ×2 (09:50→19:42)
[2018-10-11] MEDS: POLYETHYLENE GLYCOL 3350 17 GM POWD.PACK PO (09:50)
[2018-10-11] MEDS: DORZOLAMIDE/TIMOLOL OPHTH 10 ML 1 DROPS EYE-BOTH ×2 (09:50→20:51)
[2018-10-11] MEDS: INSULIN ASPART 100 UNIT/ML INSULN PEN SUBCUT ×3 (09:50→19:43)
[2018-10-11] MEDS: PANTOPRAZOLE 40 MG TABLET PO ×2 (09:50→19:44)
--- NOTE | 2018-10-11 10:11 | P.PN_ITS ---
Subjective Date Patient Seen: 10/11/18 Time Patient Seen: 10:11 Interval history: He is seen today, in his room, to follow up his brain Mets, lung cancer and agitation. He is on very high-dose steroids to try to suppress some of the brain swelling/brain tumor growth and to get some control of his agitation. I met with his son, [id number], to talk about this complicated case and report to them the results, make suggestions, take their questions and try to work out a disposition. The brain CT, repeated today, shows stable brain metastasis without significant change in signs to suggest cerebral edema, etc. When I see him he is alert, talking and eating with great focus. He can't remember that he just had a CT scan done minutes ago and becomes angry telling me that ?no one tells me anything and there is poor communication.? Clearly the brain metastasis have not significantly improved with the high-dose steroids so far. Exam Vital Signs (past 8 hours): - 10/11/18 02:25 10/11/18 04:37 10/11/18 08:00 Temperature 98.5 F 98.2 F 97.4 F L Pulse Rate 93 H 91 H 106 H Respiratory Rate 18 18 18 Blood Pressure 131/105 H 140/105 H 140/51 L Pulse Oximetry 93 96 92 10/11/18 09:12 Temperature Pulse Rate 106 H Respiratory Rate 18 Blood Pressure Pulse Oximetry 92 Oxygen Delivery Method Room Air Oxygen Flow Rate 0 Narrative Exam Narrative: He is alert and oriented to name but is easily confused and has a very short-term memory. He cannot recall that he just had a CT scan done minutes ago. He not only has a short-term memory but he blames others for not communicating plans, etc and has a complete lack of insight into his own part of the problem. Heart is regular rate and rhythm without murmur. Lungs are clear to auscultation bilaterally. Extremities have no ankle edema. Objective Labs Result Diagrams: 10/07/18 11:05 10/07/18 11:05 Assessment & Plan Assessment & Plan narrative: Acute metabolic encephalopathy, present on admission. Active. -Likely secondary to advancing brain mets with surrounding vasogenic edema. Also contributing is glucocorticoids to treat brain swelling. -Limit amount of [employer] depressant medications. -Reorient frequently. Allow patient to be awake and stimulated throughout the day and sleep at night with minimal interruptions. -Seroquel dose increased yesterday. -UA was normal but urine culture was done and grew Enterococcus. He was treated with ceftriaxone and will be changed to levofloxacin now that we have the sensitivities. The strong possibility that this was asymptomatic bacteriuria is noted but due to his delirium it is possible that this may be contributing. 2. 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 Active. -Patient is status post multiple types and rounds of chemotherapy and full brain radiation. Recently on immunotherapy with Keytruda x 1 round. -previously discussed with oncologist at [facility], Dr. Saud Carvalho, who reviewed imaging and is unclear if metastatic lesions are increasing but reports significant increase in vasogenic/cerebral edema with compression of right ventricle. He recommended increasing Decadron from 4 mg to 8 mg every 6 hours and repeating imaging today to determine if the cerebral edema is progressive or unchanged and then will reconvene with his oncologist Dr. Carvalho cell #[phone]. -[facility] team had been highly encouraging hospice for which the patient's family did not seem to be willing to consider until further discussion with oncologist. Patient's family has met with hospice to discuss. -I met with the family today, quite extensively, and social services counselor will follow up. I recommended a professional caretaking service at home versus plus/minus hospice as really the only effective way I would anticipate him discharging safely from the hospital. Unless he improves very quickly, which seems unlikely, he would not do well in a [place] [facility] facility either. His memory is so short term and his agitation/blaming is so direct that he has been extremely problematic for his family at home and also here. I do not believe that Seroquel will necessarily control that. The possibility of sedating him, perhaps on hospice, to the point where this is no longer a problem would likely lead to him dying sooner rather than later but quality of life is a major issue here. There are quite a few of these factors discussed with his family, they had many questions, some which are not answerable and others of which h ypothetically could be addressed. They will continue discussions with Oncology. The basic problem is that long-term steroid therapy has a down side and a limited prognostic benefit, it is likely the interventions by oncology are not going to reverse his brain Mets to the point of functionality, and there is a strong element of futility. 3. Acute on chronic constipation, present on admission. Active. -Abdominal series demonstrated moderate colonic obstipation through the abdomen and pelvis bilaterally. -Implemented bowel regimen: Received dulcolax 10 mg x 1. Continue Colace 100 mg twice daily and MiraLax 17 g daily. Ordered senna and dulcolax suppository daily as needed for constipation. 4. Chronic atrial fibrillation, present on admission. Stable. -Currently rate controlled. -Continue carvedilol 12.5 mg twice daily. 5. Hypertension, chronic, present on admission. Stable. -Continue aspirin 325 mg daily, carvedilol 12.5 mg twice daily, furosemide 40 mg daily, and potassium chloride 20 mg daily. 6. Hyperlipidemia, chronic, present on admission. Stable. -Continue atorvastatin 10 mg daily at bedtime. 7. Diabetes mellitus type 2, non-insulin using, chronic, present on admission. Stable. -Hemoglobin A1c 5.9% in 04/2017. Repeat hemoglobin A1c 6.6. -Continue metformin 1000 mg daily in the morning and 500 mg daily before bedtime. -Continue [facility] blood glucose checks and low-dose correctional scale insulin. -Continue regular diet as patient was not eating much and want to continue to encourage/stimulate him to eat. 8. Hypothyroidism, chronic, present on admission. Stable. -Continue levothyroxine 125 mcg daily. 9. BPH, chronic, present on admission. Stable. -Continue doxazosin 4 mg daily. 10. GERD, chronic, present on admission. Stable. -Continue omeprazole 40 mg twice daily. 11. Chronic back pain with peripheral neuropathy, chronic, present on admission. Stable. -Continue home oxycodone 7.5 every 4 hours as needed for moderate to severe pain. 12. Restless legs syndrome, chronic, present on admission. Stable. -Continue ropinirole 2.5 mg daily at bedtime. 13. UTI -enterococcus on urine culture -changed to IV Levaquin -plan no more than 3 days due to the strong possibility that this is an asymptomatic bacteriuria
--- NOTE | 2018-10-11 12:10 | PT.IPTN ---
Current Diagnoses Metabolic encephalopathy (10/08/18) Physical Therapy Treatment Note M2 PT-IP Current Condition Start: 10/08/18 10:29 Freq: NEEDED Status: Active Protocol: Document 10/08/18 12:22 DLM (Rec: 10/08/18 17:38 DLM [id number]) Physical Therapy Current Condition Current Condition Evaluation Date 10/08/18 Treatment Diagnosis lung cancer with mets to brain , confusion, generalized weakness Onset Date 10/07/18 Precautions Other Precautions cognitive impairments M3 PT-IP Subjective Start: 10/08/18 10:29 Freq: NEEDED Status: Active Protocol: Document 10/11/18 12:10 GGD (Rec: 10/11/18 12:21 GGD [id number]) Subjective Physical Therapy Visit Type Type Treatment Note Visit Start Time 12:00 Visit Stop Time 12:10 Number of TRANSPLANT RN Visits 2 Physical Therapy Visit Comments Patient Comments Pt willing to get up to chair for lunch. M4 PT-IP Mobility and Gait Start: 10/08/18 10:29 Freq: NEEDED Status: Active Protocol: Document 10/11/18 12:10 GGD (Rec: 10/11/18 12:21 GGD [id number]) PT-Bed Mobility Assessment Rolling Level of Assist Independent Supine to Sit Supine to Sit Contact Guard Assistance Sit to Supine Sit to Supine Contact Guard Assistance Scooting Scooting to Edge of Bed Independent PT-Transfer Assessment Sit to and From Stand Sit to and from Stand Standby Assistance Use of Upper Extremities Equipment Transfer Assistive Device Front Wheeled Walker Orthotic/Prosthetic Devices or Brace: No Transfers Transfer Destination Chair Transfer Ability Level of Assist Standby Assistance Use of Upper Extremities Comments Mobility Comments Pt in chair with alarm on and OFFICE SYSTEMS TECHNOLOGY INSTRUCTOR in room. Pt refused to wear socks on both feet Gait Assessment Gait Gait Assistance Required: Standby Assistance Contact Guard Assist Distance (Feet) 20 Assistive Devices Assistive Device Front Wheeled Walker Comments Gait Comments Pt ambulated in room to chair. M5 PT-IP Objective Assessments Start: 10/08/18 10:29 Freq: NEEDED Status: Active Protocol: Document 10/08/18 12:22 DLM (Rec: 10/08/18 17:38 DLM [id number]) Orientation Orientation/Cognition Level of Alertness Confusional State Orientation Name Language Function Ability No Deficits Noted Safety Awareness Decreased Safety Awareness Memory Description Short Term Impaired Comments difficult to fully assess cognition because pt becomes agitated, pt initially happy to see his Son arrive but then became agitated with his Son, pt gets agitated with too much stimulation Gross Range of Motion Upper Extremity ROM Assessment Within Functional Limits Lower Extremity ROM Assessment Within Functional Limits Strength Upper Extremity Strength Assessment Within Functional Limits Lower Extremity Strength Assessment Within Functional Limits Comments Strength Comments pt unable to participate in manual muscle testing so only assessed functional strength Coordination Assessment Gross Coordination Gross Coordination WNL Sensation Assessment Comments Sensation Comments unable to assess Muscle Tone Muscle Tone WNL Yes M6 PT-IP Treatment Start: 10/08/18 10:29 Freq: NEEDED Status: Active Protocol: Document 10/10/18 14:26 SA (Rec: 10/10/18 14:50 SA [id number]) Physical Therapy Treatment Education Education Provided Safety Other Treatments Other Treatment Performed Pt with improved behaviors with 1:1 treatment vs with family in room, was able to make needs known and respond appropriatly to cues/direction . M7 PT-IP Assessment and Plan Start: 10/08/18 10:29 Freq: NEEDED Status: Active Protocol: Document 10/11/18 12:10 GGD (Rec: 10/11/18 12:21 GGD [id number]) PT Summary Assessment and Plan Summary Assessment Summary Pt is SBA to CGA with mobility . He is impulsive with mobility. He had no LOB with mobility. Frequency of Treatment Frequency Of Treatment Once a Day Treatment Plan Physical Therapy Treatment Plan Bed Mobility Training Transfer Training Gait Training Therapeutic Exercise Discharge Planning Recommendations To Nursing Amount of Assist Needed 1 Person Assist Discharge Recommendations PT Discharge Recommendations Home with 18/12 Assist
[2018-10-11] MEDS: INSULIN ASPART 100 UNIT/ML INSULN PEN 8 UNIT SUBCUT (13:17)
[2018-10-11] MEDS: levoFLOXacin 500 MG/100 ML PIGGYBACK 100 MG IV (14:53)
--- NOTE | 2018-10-11 15:25 | CM.DPNOTE ---
Discussed POC and DCP options w/Dr Roger this morning after he met w/pt's /JACQUIOA Olamide and family. Family continue to say they need to hear from pt's oncologist before making further decisions. CT scan of brain today shows no change. Pt remains on high dose of steroid in attempt at relieving brain swelling although there is no sign from CT that steroid is making a significant difference. Dr Roger explained to pt's family that a side effect of this steroid use can be increased agitation, behavioral disturbance and agitation. Pt can not be managed in a SNF setting. Pt's prognosis is poor, according to Dr Roger, though the family continue to review the ways to follow pt's wishes of getting better (?) Dr Roger suggests to this CODING VALIDATOR to f/u w/pt's to discuss taking pt home w/privately paid caregivers and moving forward w/ Hospice. Met w/Olamide, pt's , had lengthy conversation. Olamide admitted to this CODING VALIDATOR that she doesn't know how to proceed in the planning process, this CODING VALIDATOR made suggestions and Olamide was resistant to making any DC plans w/this CODING VALIDATOR's assist until she heard back from pt's Oncologist at [facility] and pt's radiologist (?) Olamide reiterated this many times throughout this conversation. Topics reviewed w/Olamide: Goals of care and quality of life vs quantity ? Olamide feels pt would not want to live this way but he continues to say and act like a fighter In home care givers ? Olamide says she will need a nurse to care for pt; challenged Olamide's logic and encouraged her to consider pt's fci care needs, which do not require an RN. Olamide somewhat resistant to having someone there all day long? Olamide admits her dtr works aircraft time clerk and is not available and she doesn't feel she can rely on her son for anything Hospice service? Olamide considering this as a supportive measure for her and pt. Olamide indicated that she first needed to decide w/pt's oncologist whether he could get any addtl. treatment. No DCP finalized today. Olamide says she has the Senior Resource Guide in case she needs to look at agencies but denies the need for this CODING VALIDATOR's help. Olamide also states she has not made a decision about Hospice. CODING VALIDATOR team will continue to follow closely, hopefully spouse/ DPOA Olamide can better assist in this DCP over the next few days. CHRIS Soares
[2018-10-11] MEDS: ATORVASTATIN 10 MG TABLET PO (19:40)
[2018-10-11] MEDS: INSULIN GLARGINE 100 UNIT/ML 3ML PEN 20 UNIT SUBCUT (19:43)
[2018-10-11] MEDS: LORazepam 1 MG TABLET PO (19:52)
[2018-10-11] MEDS: LATANOPROST 0.005% OPHTH 2.5 ML 1 DROPS EYE-BOTH (20:51)
--- NOTE | 2018-10-11 20:54 | PC.NURSE ---
PATIENTS AND SON ARE COMPLAINING THAT WE ARE HIDING THINGS FROM THEM ABOUT PATIENTS CARE. STATES WE HAVE DONE THINGS, AND NOT DONE THINGS WITH PATIENT THINKING HE WAS GOING TO . STATES PATIENTS ONCOLOGY MD.IS NOT GETTING INFORMATION FROM THE HOSPITALIST, AND HAS NO IDEA WHAT THE PLAN IS. PATIENTS SON STATES THE ONCOLOGIST IS THE ONE IN CHARGE OF PATIENTS CARE. PATIENTS SON IS VERY RUDE WHEN TALKING TO STAFF, AND TALKING WITH HIS MOTHER, CUTS HER OFF A LOT WHEN SHE IS TALKING.
--- NOTE | 2018-10-11 23:30 | PC.NURSE ---
Paper copy of DPOA is chart. All care/tx should be communicated with patients (Olamide) first, not the patient.
[2018-10-12] VITALS (12 sets, daily range): BP systolic 125–157; BP diastolic 61–92; PULSE 78–113; RESP 16–20; TEMP 36.1–37.1; O2SAT 95–98
[2018-10-12] MEDS: DEXAMETHASONE 4 MG TABLET 8 MG PO ×4 (02:19→20:24)
[2018-10-12] MEDS: LEVOTHYROXINE 125 MCG TABLET PO (06:27)
--- NOTE | 2018-10-12 07:27 | PC.NURSE ---
Shift note: Pt's son arrived this morning and proceeded to lecture this RN on pt's care (inadequate), diet (pt's increased blood sugars), and incompetence of [facility] and staff and that he had a background in [facility] but would not state what that was. Stated that he did not want us to talk about his dad's condition in front of the pt, to not be giving the pt things that would increase his blood sugar (even though the family provided full sugar Pepsi for pt to drink), and other various topics related to the patient's health and care. Tried to explain that with current diet order if the pt requests food and beverages, we are within care parameters to give it to him and we do our best to avoid agitating the patient by complying with the patient's requests within safety. Pt stated that the doctors were not communicating with the patient's oncologist who are unhappy with what the doctors are doing here and are to not take over. This RN felt uncomfortable with what the son was asking and telling me of his wishes and passed on the conversation with the day shift nurse.
[2018-10-12] MEDS: INSULIN ASPART 100 UNIT/ML INSULN PEN SUBCUT ×3 (08:13→20:30)
[2018-10-12] MEDS: ASPIRIN EC 325 MG TABLET PO (08:14)
[2018-10-12] MEDS: DOCUSATE 100 MG CAPSULE PO ×2 (08:15→20:25)
[2018-10-12] MEDS: FUROSEMIDE 40 MG TABLET PO (08:16)
[2018-10-12] MEDS: DOXAZOSIN 4 MG TABLET PO (08:16)
[2018-10-12] MEDS: CARVEDILOL 12.5 MG TABLET PO ×2 (08:16→20:23)
[2018-10-12] MEDS: PANTOPRAZOLE 40 MG TABLET PO ×2 (08:17→20:27)
[2018-10-12] MEDS: QUETIAPINE 25 MG TABLET 50 MG PO ×2 (08:17→20:27)
[2018-10-12] MEDS: POTASSIUM CHLORIDE 20 MEQ TAB PO (08:18)
[2018-10-12] MEDS: POLYETHYLENE GLYCOL 3350 17 GM POWD.PACK PO (08:18)
[2018-10-12] MEDS: SODIUM CHLORIDE 0.9% FLUSH 10 ML IV ×2 (10:18→20:28)
--- NOTE | 2018-10-12 12:41 | PT.IPTN ---
Current Diagnoses Metabolic encephalopathy (10/08/18) Physical Therapy Treatment Note M2 PT-IP Current Condition Start: 10/08/18 10:29 Freq: NEEDED Status: Active Protocol: Document 10/08/18 12:22 DLM (Rec: 10/08/18 17:38 DLM [id number]) Physical Therapy Current Condition Current Condition Evaluation Date 10/08/18 Treatment Diagnosis lung cancer with mets to brain , confusion, generalized weakness Onset Date 10/07/18 Precautions Other Precautions cognitive impairments M3 PT-IP Subjective Start: 10/08/18 10:29 Freq: NEEDED Status: Active Protocol: Document 10/12/18 12:39 GGD (Rec: 10/12/18 12:41 GGD [id number]) Subjective Physical Therapy Visit Type Type Administrative Note Notes Per MD D/C pt from PT, plan for pt to D/C with hospice. Pt is mobilizing with NSG.
[2018-10-12] MEDS: OXYCODONE/ACETAMINOPHEN 5/325 TABLET 1.5 TAB PO ×3 (13:18→23:32)
--- NOTE | 2018-10-12 14:52 | PC.NURSE ---
Am shift Lengthy conversation with sonVentura at start of shift. He expressed frustration about care, he feels like they (The family) are being left out of the loop, and that is hard. Frequently, meds have changed that they know nothing about. And multiple items from the room have gone missing. This RN found the missing sharpies and nail trimmers that were missing this shift. Laundry should be shaken out before removing from the room, as Pt hides items in linens and pockets. Family would like to be clear about POC. This conversation was very clear from this RN about the goal of CARE for Pt. Son verbalizes that he knows dad is not going to get well, I understand, I would like him to get medically stable enough to d/c home with hospice care, he will do better at home Reiterated that goal of care was to get home with hospice. Family would really like to be notified with medication changes, they are heavily involved with care at home and would like to be sure he is rec'd everything in his normal routine. Throughout shift, this RN has spent a substantial amount of time doing education and mediation.
--- NOTE | 2018-10-12 15:30 | PM.PN.1 ---
Subjective Date Patient Seen: 10/12/18 Interval history: He is seen in his room here today to follow-up the lung cancer, brain metastasis, altered mental status, cognitive dysfunction, various family issues. He seems to be doing remarkably better today with the most likely cause the high-dose steroids, affecting his brain function. We have a long conversation about various cars. He says he has always been a ?Corvette man.? Although he does like his model A Peacock and his Porsches also. 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 His laboratory tests were stable on the and have not been repeated today. His heart rate is 94 with a blood pressure of 148/85. His comes in later on and relates to me 2 major complaints. She is upset that his meal food types are not all ?high calorie? instead of the usual hospital mixed fare. She is also upset that his blood sugars were high (in the 400s) yesterday and he was continued on various liquids/foods that could contribute to that effect. She is aware that the steroids are the cause. Exam Vital Signs (past 8 hours): - 10/12/18 08:16 10/12/18 11:45 Temperature 98.7 F Pulse Rate 79 92 H Respiratory Rate 16 Blood Pressure 137/78 Pulse Oximetry 98 Oxygen Delivery Method Room Air Oxygen Flow Rate 0 Narrative Exam Narrative: He is alert and oriented x3. He seems much more aware of recent events and able to recall without the extreme irritation/confabulation of yesterday. Lungs are clear to auscultation bilaterally. Heart is regular rate and rhythm without murmur. Extremities have no ankle edema. He is up and walking in the room, using his walker both with nursing and physical therapy assistance. Objective Labs Result Diagrams: 10/07/18 11:05 10/07/18 11:05 Assessment & Plan Assessment & Plan narrative: Acute metabolic encephalopathy, present on admission. Active. -Likely secondary to advancing brain mets with surrounding vasogenic edema. Signs of improvement noted today. -Limit amount of SPEECH WRITER depressant and opiate medications. -Reorient frequently. Allow patient to be awake and stimulated throughout the day and sleep at night with minimal interruptions. -Seroquel dose increased recently and will keep at that dose for now -UA was normal but urine culture was done and grew Enterococcus. He was treated with ceftriaxone and is now on levofloxacin now that we have the sensitivities. The strong possibility that this was asymptomatic bacteriuria is noted but due to his delirium it is possible that this may be contributing. 2. 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 Active. -Patient is status post multiple types and rounds of chemotherapy and full brain radiation. Recently on immunotherapy with Keytruda x 1 round. -previously discussed with oncologist at [facility], Dr. Saud Carvalho, who reviewed imaging and is unclear if metastatic lesions are increasing but reports significant increase in vasogenic/cerebral edema with compression of right ventricle. He recommended increasing Decadron from 4 mg to 8 mg every 6 hours and repeating imaging today to determine if the cerebral edema is progressive or unchanged and then will reconvene with his oncologist Dr. Carvalho cell #[phone]. -[facility] team had been highly encouraging hospice for which the patient's family did not seem to be willing to consider until further discussion with oncologist. Patient's family has met with hospice to discuss. -In yesterdays family meeting I recommended a professional caretaking service at home versus plus/minus hospice as really the only effective way I would anticipate him discharging safely from the hospital. He looks much better today with the high-dose steroids and that will be continued for the next 2-3 days before consideration of lower dose after discussion with Oncology. The basic problem is that long-term steroid therapy has a down side and a limited prognostic benefit, it is likely the interventions by oncology are not going to reverse his brain Mets to the point of functionality, and there is a strong element of futility. -home on hospice, the goal as described by Oncology early on admission, appears to be a circuitous and somewhat challenging target despite the assistance of social worker delinquency prevention, meetings with family, etc. 3. Acute on chronic constipation, present on admission. Active. -Abdominal series demonstrated moderate colonic obstipation through the abdomen and pelvis bilaterally. -Implemented bowel regimen: Received dulcolax 10 mg x 1. Continue Colace 100 mg twice daily and MiraLax 17 g daily along with senna and dulcolax suppository daily as needed for constipation. 4. Chronic atrial fibrillation, present on admission. Stable. -Currently rate controlled. -Continue carvedilol 12.5 mg twice daily. 5. Hypertension, chronic, present on admission. Stable. -Continue aspirin 325 mg daily, carvedilol 12.5 mg twice daily, furosemide 40 mg daily, and potassium chloride 20 mg daily. 6. Hyperlipidemia, chronic, present on admission. Stable. -Continue atorvastatin 10 mg daily at bedtime. 7. Diabetes mellitus type 2, non-insulin using, chronic, present on admission. Stable. -Hemoglobin A1c 5.9% in 04/2017. Repeat hemoglobin A1c 6.6. -Continue metformin 1000 mg daily in the morning and 500 mg daily before bedtime. -Continue [facility] blood glucose checks and low-dose correctional scale insulin. -Continue regular diet as patient was not eating much and want to continue to encourage/stimulate him to eat. His asks that his food be all ?high calorie? to account for the meals where he eats very little. -we discussed that his steroid induced hyperglycemia will not be a major problem over the long run but she has concerns that he would get into a ?diabetic coma at high sugar levels. 8. Hypothyroidism, chronic, present on admission. Stable. -Continue levothyroxine 125 mcg daily. 9. BPH, chronic, present on admission. Stable. -Continue doxazosin 4 mg daily. 10. GERD, chronic, present on admission. Stable. -Continue omeprazole 40 mg twice daily. 11. Chronic back pain with peripheral neuropathy, chronic, present on admission. Stable. -Continue home oxycodone 7.5 every 4 hours as needed for moderate to severe pain. -his family have told us today that he usually takes 20 mg of oxycodone. My observations are that he is doing well on the lower dose and so we will continue that dose in an effort not to inhibit his recovery by increasing sedation/fall risk. 12. Restless legs syndrome, chronic, present on admission. Stable. -Continue ropinirole 2.5 mg daily at bedtime. 13. UTI -enterococcus on urine culture -changed to IV Levaquin -plan no more than 3 days due to the strong possibility that this is an asymptomatic bacteriuria
--- NOTE | 2018-10-12 15:36 | P.PN_ITS ---
Subjective Date Patient Seen: 10/12/18 Interval history: He is seen in his room here today to follow-up the lung ca ncer, brain metastasis, altered mental status, cognitive dysfunction, various family issues. He seems to be doing remarkably better today with the most likely cause the high-dose steroids, affecting his brain function. We have a long conversation about various cars. He says he has always been a ?Corvette man.? Although he does like his model A Peacock and his Porsches also. 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 His laboratory tests were stable on the and have not been repeated today. His heart rate is 94 with a blood pressure of 148/85. His comes in later on and relates to me 2 major complaints. She is upset that his meal food types are not all ?high calorie? instead of the usual hospital mixed fare. She is also upset that his blood sugars were high (in the 400s) yesterday and he was continued on various liquids/foods that could contribute to that effect. She is aware that the steroids are the cause. Exam Vital Signs (past 8 hours): - 10/12/18 08:16 10/12/18 11:45 Temperature 98.7 F Pulse Rate 79 92 H Respiratory Rate 16 Blood Pressure 137/78 Pulse Oximetry 98 Oxygen Delivery Method Room Air Oxygen Flow Rate 0 Narrative Exam Narrative: He is alert and oriented x3. He seems much more aware of recent events and able to recall without the extreme irritation/confabulation of yesterday. Lungs are clear to auscultation bilaterally. Heart is regular rate and rhythm without murmur. Extremities have no ankle edema. He is up and walking in the room, using his walker both with nursing and physical therapy as sistance. Objective Labs Result Diagrams: 10/07/18 11:05 10/07/18 11:05 Assessment & Plan Assessment & Plan narrative: Acute metabolic encephalopathy, present on admission. Active. -Likely secondary to advancing brain mets with surrounding vasogenic edema. Signs of improvement noted today. -Limit amount of CLINICAL NURSING INTERN depressant and opiate medications. -Reorient frequently. Allow patient to be awake and stimulated throughout the day and sleep at night with minimal interruptions. -Seroquel dose increased recently and will keep at that dose for now -UA was normal but urine culture was done and grew Enterococcus. He was treated with ceftriaxone and is now on levofloxacin now that we have the sensitivities. The strong possibility that this was asymptomatic bacteriuria is noted but due to his delirium it is possible that this may be contributing. 2. 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 Active. -Patient is status post multiple types and rounds of chemotherapy and full brain radiation. Recently on immunotherapy with Keytruda x 1 round. -previously discussed with oncologist at [facility], Dr. Saud Carvalho, who reviewed imaging and is unclear if metastatic lesions are increasing but reports significant increase in vasogenic/cerebral edema with compression of right ventricle. He recommended increasing Decadron from 4 mg to 8 mg every 6 hours and repeating imaging today to determine if the cerebral edema is progressive or unchanged and then will reconvene with his oncologist Dr. Carvalho cell #[phone]. -[facility] team had been highly encouraging hospice for which the patient's family did not seem to be willing to consider until further discussion with oncologist. Patient's family has met with hospice to discuss. -In yesterdays family meeting I recommended a professional caretaking service at home versus plus/minus hospice as really the only effective way I would anticipate him discharging safely from the hospital. He looks much better today with the high-dose steroids and that will be continued for the next 2-3 days before consideration of lower dose after discussion with Oncology. The basic problem is that long-term steroid therapy has a down side and a limited prognostic benefit, it is likely the interventions by oncology are not going to reverse his brain Mets to the point of functionality, and there is a strong element of futility. -home on hospice, the goal as described by Oncology early on admission, appears to be a circuitous and somewhat challenging target despite the assistance of social services designee, meetings with family, etc. 3. Acute on chronic constipation, present on admission. Active. -Abdominal series demonstrated moderate colonic obstipation through the abdomen and pelvis bilaterally. -Implemented bowel regimen: Received dulcolax 10 mg x 1. Continue Colace 100 mg twice daily and MiraLax 17 g daily along with senna and dulcolax suppository daily as needed for constipation. 4. Chronic atrial fibrillation, present on admission. Stable. -Currently rate controlled. -Continue carvedilol 12.5 mg twice daily. 5. Hypertension, chronic, present on admission. Stable. -Continue aspirin 325 mg daily, carvedilol 12.5 mg twice daily, furosemide 40 mg daily, and potassium chloride 20 mg daily. 6. Hyperlipidemia, chronic, present on admission. Stable. -Continue atorvastatin 10 mg daily at bedtime. 7. Diabetes mellitus type 2, non-insulin using, chronic, present on admission. Stable. -Hemoglobin A1c 5.9% in 04/2017. Repeat hemoglobin A1c 6.6. -Continue metformin 1000 mg daily in the morning and 500 mg daily before bedtime. -Continue [facility] blood glucose checks and low-dose correctional scale insulin. -Continue regular diet as patient was not eating much and want to continue to encourage/stimulate him to eat. His asks that his food be all ?high calorie? to account for the meals where he eats very little. -we discussed that his steroid induced hyperglycemia will not be a major problem over the long run but she has concerns that he would get into a ?diabetic coma at high sugar levels. 8. Hypothyroidism, chronic, present on admission. Stable. -Continue levothyroxine 125 mcg daily. 9. BPH, chronic, present on admission. Stable. -Continue doxazosin 4 mg daily. 10. GERD, chronic, present on admission. Stable. -Continue omeprazole 40 mg twice daily. 11. Chronic back pain with peripheral neuropathy, chronic, present on admission. Stable. -Continue home oxycodone 7.5 every 4 hours as needed for moderate to severe pain. -his family have told us today that he usually takes 20 mg of oxycodone. My observations are that he is doing well on the lower dose and so we will continue that dose in an effort not to inhibit his recovery by increasing sedation/fall risk. 12. Restless legs syndrome, chronic, present on admission. Stable. -Continue ropinirole 2.5 mg daily at bedtime. 13. UTI -enterococcus on urine culture -changed to IV Levaquin -plan no more than 3 days due to the strong possibility that this is an asymptomatic bacteriuria
[2018-10-12] MEDS: levoFLOXacin 500 MG/100 ML PIGGYBACK 100 MG IV (16:55)
[2018-10-12] MEDS: ATORVASTATIN 10 MG TABLET PO (20:24)
[2018-10-12] MEDS: DORZOLAMIDE/TIMOLOL OPHTH 10 ML 1 DROPS EYE-BOTH (20:25)
[2018-10-12] MEDS: HEPARIN 5,000 UNIT/ML VIAL 5000 UNIT SUBCUT (20:25)
[2018-10-12] MEDS: LATANOPROST 0.005% OPHTH 2.5 ML 1 DROPS EYE-BOTH (20:26)
[2018-10-12] MEDS: INSULIN GLARGINE 100 UNIT/ML 3ML PEN 20 UNIT SUBCUT (20:29)
[2018-10-12] MEDS: LORazepam 1 MG TABLET PO (23:32)
[2018-10-13] VITALS (10 sets, daily range): BP systolic 107–171; BP diastolic 60–90; PULSE 70–101; RESP 16–18; TEMP 36.3–36.6; O2SAT 94–97
[2018-10-13] MEDS: DEXAMETHASONE 4 MG TABLET 8 MG PO ×4 (01:27→20:19)
[2018-10-13] MEDS: OXYCODONE/ACETAMINOPHEN 5/325 TABLET 1.5 TAB PO ×4 (04:14→22:00)
[2018-10-13] MEDS: LEVOTHYROXINE 125 MCG TABLET PO (05:49)
--- NOTE | 2018-10-13 06:20 | PC.NURSE ---
Shift note: Pt has had a very active night, has left his bed multiple times an hour looking for the light switch, wanting to go to the bathroom, or just wanting to leave his room. He is minimally cooperative with redirection once he knows what he wants to do. Had to call Olamide at 0130 d/t pt refusing to take his Decadron without her permission, but will take his percocet own his own. Has also made multiple calls to his son Ventura, who forcefully requested that we immediately address whether or not it is an emergency.
[2018-10-13] MEDS: INSULIN ASPART 100 UNIT/ML INSULN PEN SUBCUT ×3 (09:15→19:07)
[2018-10-13] MEDS: QUETIAPINE 25 MG TABLET 50 MG PO ×3 (09:16→20:22)
[2018-10-13] MEDS: CARVEDILOL 12.5 MG TABLET PO ×2 (09:18→20:20)
[2018-10-13] MEDS: DOCUSATE 100 MG CAPSULE PO ×2 (09:18→20:21)
[2018-10-13] MEDS: ASPIRIN EC 325 MG TABLET PO (09:18)
[2018-10-13] MEDS: DOXAZOSIN 4 MG TABLET PO (09:18)
[2018-10-13] MEDS: POTASSIUM CHLORIDE 20 MEQ TAB PO (09:19)
[2018-10-13] MEDS: HEPARIN 5,000 UNIT/ML VIAL 5000 UNIT SUBCUT (09:20)
[2018-10-13] MEDS: FUROSEMIDE 40 MG TABLET PO (09:20)
[2018-10-13] MEDS: PANTOPRAZOLE 40 MG TABLET PO ×2 (09:20→20:21)
[2018-10-13] MEDS: SODIUM CHLORIDE 0.9% FLUSH 10 ML IV ×2 (09:21→22:00)
[2018-10-13] MEDS: POLYETHYLENE GLYCOL 3350 17 GM POWD.PACK PO (09:21)
[2018-10-13] MEDS: DORZOLAMIDE/TIMOLOL OPHTH 10 ML 1 DROPS EYE-BOTH (12:23)
[2018-10-13] MEDS: levoFLOXacin 500 MG TABLET PO (12:26)
[2018-10-13] MEDS: LORazepam 1 MG TABLET PO (14:20)
--- NOTE | 2018-10-13 14:21 | PC.NURSE ---
Addendum entered by Leydi Lopez R.N. 10/13/18 16:43: UNable to remove Pt IV d/t agitation. Will attempt on PM shift. And start new Addendum entered by Leydi Lopez R.N. 10/13/18 16:37: 1600-Dr Sheppard currently updating Olamide about POC and why son was tresspassed from hospital after agressive and physically intimidating behavior. This RN clarified with Olamide, no one wants to keep son from his terminally ill father, but this facility, as every other, has a zero tolerance policy regarding bullying and harrassment to staff. His behavior has resulted in anxiety and fear from other patients, as well as staff members. Ventura has been asked by staff to cool down and to lower voice, as this causes stress to his father as well as other patients. Olamide is pleased with care for Ed, and we will continue care with increased seroquel and monitor. We will not call family overnight for all changes to meds as previously requested by Ventura, and we will redirect his confusion and limit phone calls overnight to allow Olamide rest. Report given to Bharati MUÑOZ for blane shift. Addendum entered by Leydi Lopez R.N. 10/13/18 16:01: Clear medication cups provided by Olamide, these are labeled Ed AM meds PM meds ect, these have been effective in getting Pt to accept medication from staff, as he has frequently refused medication from staff if Olamide hasn't approved it Pt has needed from redirection from staff in order to allow care this shift. 1400-This RN returned from break to Dr Sheppard updating Pt family at the bedside. Son and and Daughter in law in room. Pt is sitting up in chair and Dr Sheppard directing talking to Pt you know that you are in the hospital? Do you know your diagnosis? Son, Ventura is becoming agitated standing up from chair and has a physically intimidating presence in room, yelling Why would you say that?! This RN at door, offered assistance, Ventura walked into ross, yelling and pacing. This RN offered a moment for Ventura to de-escalate in ross and calm down prior to entering the Pt room, as this line of conversation has been agitating to Pt this shift. Ami out in ross and attempting to de-escalate Ventura as well. He stormed off down the ross, with Ami. This RN called security for back up of personal. Security, [place], made aware of situation. Conversation in room with Olamide and Dr Sheppard and Pt is certainly more agitated at this time. Staff out side of room, but less stimulation is certainly more with this Pt. Original Note: Am shift Pt has been cooperative and mood good at start of shift, with no family at bedside. Occasionally requesting to call , but if very redirectable. Polite with staff. Son and Daughter in law arrived, over involved with Pt who almost immediately began to amp up. This RN discussed avoiding asking Pt repeatedly about Are you in pain? Are you too cold or too hot? These repeated questions overwhelm Pt and he has a challenging time de-escalating. Family, specifically son, is very direct I know how to care for my own father! This RN able to diffuse conversation with son, and his and himself will apple picker a burger, per Pt request. Pt is notablably less agitated while this RN is conversing with Pt and getting him into bed. BA active and Pt has call light. Visable from nursing station.
--- NOTE | 2018-10-13 14:27 | CM.DPNOTE ---
Pt discussed in multidisciplinary rounds. He is medically stable to DC once safe plan in place and family agreeable to such. Pt remains at for administration of Decadron. Had lengthy conversation w/ Dr Shpepard today re: her efforts to clarify POC/DCP w/pt's family (spouse Olamide and son Ventura). Per our conversation: Olamide and Ventura continue to waver on best POC and Dr Sheppard feels strongly that treatment options have been presented and that a DCP needs to be decided upon but family are not agreeable to this today. Dr Sheppard explains that pt's family demand their medical treatment suggestions be followed rather than Dr Sheppard's suggestions. Encouraged Dr Sheppard to review these concerns w/her physician advisor/senior contracts administrator. In addition, this might be appropriate for an ethics committee consult pending how medical POC develops over the next few days. Dr Sheppard remains hopeful that family will soon be agreeable to a comfort management path, to assist in the symptoms of pt's progressive lung cancer w/metastasis to brain. This would include increased Seroquel and decreased Decadron, to assist in pt's increased agitation and restlessness. DCP: It is not appropriate for this STRATEGIC MARKETING MANAGER to address DCP options today. STRATEGIC MARKETING MANAGER team will continue to follow closely and will remain available to pt/family and staff as needed. Medical POC still needs to be clarified and agreed upon. Contact w/ Sarah Monsivais in Quality and Risk and senior contracts administrator Cathy Abdalla may be helpful Sunday. CHRIS Soares
[2018-10-13] MEDS: ATORVASTATIN 10 MG TABLET PO (20:20)
--- NOTE | 2018-10-13 21:52 | P.PN_ITS ---
Subjective Date Patient Seen: 10/13/18 Interval history: Michele Barroso is a 77-year-old male with a past medical history significant for hypertension, hyperlipidemia, diabetes mellitus type 2, non-insulin using, chronic back pain with peripheral neuropathy, former smoker with [id number] lung cancer and metastases to the brain status post several rounds of chemotherapy and whole-brain radiation who presented for altered mental status. The patient is resting in the bedside chair comfortably. He reports he is tired. He continues to be moderately confused. He is unable to carry out a chain of thoughts that makes logical sense and continues to be agitated. When I began to discuss the patient's disposition and goals of care with the patient's family, including his spouse and PAIGE Quiñonez and his son Ventura, the patient's son became quiet angry and verbally aggressive. He leaped up toward me and then reported to his mother that with talk like that the next step is to get the tax associate attorney's mom?. This is not the first time that Ventura has been verbally aggressive toward myself or staff. He often yells in the patient's room and/or hallway. He often agitates his father when he is here and several code greys have been called related to the son and the patient. He continually roosevelt from his father's care. He sets impractical expectations regarding the plan of care and often tries to lead the treatment plan making it difficult to treat the patient. Ventura has made myself and staff feel unsafe and he was asked to leave the hospital by security today. Exam Vital Signs (past 8 hours): - 10/13/18 19:46 10/13/18 20:20 Temperature 97.4 F L Pulse Rate 97 H 97 H Respiratory Rate 18 Blood Pressure 139/90 139/90 Pulse Oximetry 95 Fraction of Inspired Oxygen 21 Oxygen Delivery Method Room Air Oxygen Flow Rate 0 Narrative Exam Narrative: General: Elderly thin male sitting in bed and in no acute distress, appears chronically ill, moderate confusion with short-term memory recall deficit, alert oriented to person only, continues to be easily agitated and verbally insulting but not physically combative. HEENT: Normocephalic, atraumatic. External ears without defect. Pupils equal, round, and reactive to light. Anicteric sclerae, moist conjunctivae, and no lid lag. Neck: Supple with full range of motion. No lymphadenopathy or thyromegaly. Cardiovascular: Heart sounds distant but appears to be irregularly irregular without murmurs, rubs, or gallops appreciated. Pulmonary: Diminished throughout but appears to be clear to auscultation bilaterally without crackles, wheezes, or rhonchi. Normal respiratory effort with no use of accessory muscles. Abdomen: Soft, bowel sounds present, nontender, nondistended. No hepa tosplenomegaly or masses appreciated. Extremities: No clubbing, cyanosis, or edema. Skin: Normal temperature, turgor, and texture; no rash, ulcers, or subcutaneous nodules appreciated. Neurological: Cranial nerves grossly intact. Psychiatric: Alert oriented to person only. Moderate confusion with short-term memory recall deficit. Continues to be easily agitated and verbally insulting at times but not physically combative. Objective Labs Result Diagrams: 10/07/18 11:05 10/07/18 11:05 Assessment & Plan Assessment & Plan narrative: Michele Barroso is a 77-year-old male with a past medical history significant for hypertension, hyperlipidemia, diabetes mellitus type 2, non-insulin using, chronic back pain with peripheral neuropathy, former smoker with [id number]-kddu lung cancer and metastases to the brain status post several rounds of chemotherapy and whole-brain radiation who presented for altered mental status. 1. Acute on likely chronic metabolic encephalopathy, present on admission. Active. -Likely secondary to advancing brain mets with surrounding vasogenic edema. -Limit amount of RESEARCH ANALYST depressant medications including opiates and benzodiazpines. -Reorient frequently. Allow patient to be awake and stimulated throughout the day and sleep at night with minimal interruptions. -Continue seroquel and increased to 50 mg three times daily and 25 mg every 6 hours as needed for agitation. Continue to titrate to behavior. May use soft restraints if chemical restraints do not suffice. -Ordered psychiatric consultation, pending. -UA does not appear infected but asked for this to be cultured even though it did not reflex. Urine culture preliminarily growing Enterococcus. Will treat empirically with ceftriaxone pending identification sensitivities. May simply be asymptomatic bacteriuria as patient has no symptoms. However, due to abrupt onset metabolic encephalopathy which is likely from progressive brain metastases with cerebral edema, will treat empirically as true UTI to assure that this is not a contributing factor. -UA was normal but urine culture was performed at hospitalists request and grew Enterococcus. He was treated with ceftriaxone and levofloxacin for total of a 5 day antibiotic course. There is a strong possibility that this was asymptomatic bacteriuria but due to his delirium it was possible that this was contributing therefore was treated. 2. 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 Active. -Patient is status post multiple types and rounds of chemotherapy and full brain radiation. Recently on immunotherapy with Keytruda x 1 round. -Previously discussed with oncologist at [facility], Dr. Saud Carvalho, who reviewed imaging and is unclear if metastatic lesions are increasing but reports significant increase in vasogenic/cerebral edema with compression of right ventricle. He recommended increasing Decadron from 4 mg to 8 mg every 6 hours and repeating imaging today to determine if the cerebral edema is progressive or unchanged and then will reconvene with his oncologist Dr. Carvalho cell #[phone]. -[facility] team had been highly encouraging hospice for which the patient's family did not seem to be willing to consider until further discussion with oncologist. Patient's family has met with hospice. -In previous family meeting a professional caretaking service at home versus plus/minus hospice was recommended as this is likely the only effective way to discharge patient safely from the hospital. High-dose steroids are continued and will discuss with oncologist before consideration of lower dose. The basic problem is that long-term steroid therapy has a limited prognostic benefit and several adverse side effects. It is likely that the interventions by oncology are not going to reverse his brain metastases in cerebral edema to the point of functionality and there is a strong element of futility. -Home on hospice, the goal as described by Oncology early on in admission, appears to be a circuitous and somewhat challenging target despite the assistance of social worker assistant, meetings with family, etc. 3. Acute UTI vs. asymptomatic bacturia, present on admission. Resolved. -UA was normal but urine culture was performed at hospitalists request and grew Enterococcus. He was treated with ceftriaxone and levofloxacin for total of a 5 day antibiotic course. There is a strong possibility that this was asymptomatic bacteriuria but due to his delirium it was possible that this was contributing therefore was treated. 4. Acute on chronic constipation, present on admission. Active. -Abdominal series demonstrated moderate colonic obstipation through the abdomen and pelvis bilaterally. -Implemented bowel regimen: Received dulcolax 10 mg x 1. Continue Colace 100 mg twice daily and MiraLax 17 g daily. Ordered senna and dulcolax suppository daily as needed for constipation. 5. Chronic atrial fibrillation, present on admission. Stable. -Currently rate controlled. -Continue carvedilol 12.5 mg twice daily. 6. Hypertension, chronic, present on admission. Stable. -Continue aspirin 325 mg daily, carvedilol 12.5 mg twice daily, furosemide 40 mg daily, and potassium chloride 20 mg daily. 7. Hyperlipidemia, chronic, present on admission. Stable. -Continue atorvastatin 10 mg daily at bedtime. 8. Diabetes mellitus type 2, non-insulin using, chronic, present on admission. Stable. -Hemoglobin A1c 5.9% in 04/2017. Ordered repeat hemoglobin A1c, pending. -Continue metformin 1000 mg daily in the morning and 500 mg daily before bedtime. -Continue [facility] blood glucose checks and low-dose correctional scale insulin. -Continue regular diet as patient is not eating and want to continue to encourage/stimulate him to eat. 9. Hypothyroidism, chronic, present on admission. Stable. -Continue levothyroxine 125 mcg daily. 10. BPH, chronic, present on admission. Stable. -Continue doxazosin 4 mg daily. 11. GERD, chronic, present on admission. Stable. -Continue omeprazole 40 mg twice daily. 12. Chronic back pain with peripheral neuropathy, chronic, present on admission. Stable. -Continue home oxycodone 7.5 every 4 hours as needed for moderate to severe pain. 13. Restless legs syndrome, chronic, present on admission. Stable. -Continue ropinirole 2.5 mg daily at bedtime. Disposition: Unclear at this time. Plan is to continue to work at controlling patient's behavior with medications and work with oncology in regard to brain metastases with cerebral edema and mass effect.
[2018-10-14] VITALS (7 sets, daily range): BP systolic 102–156; BP diastolic 46–123; PULSE 58–96; RESP 16–18; TEMP 35.8–37; O2SAT 94–98
[2018-10-14] MEDS: DEXAMETHASONE 4 MG TABLET 8 MG PO ×2 (02:58→08:27)
--- NOTE | 2018-10-14 05:45 | PC.NURSE ---
Per PRESS OPERATOR Mateo aMrtin, the IV line can be maintained and not changed until 10/15.
[2018-10-14] MEDS: LEVOTHYROXINE 125 MCG TABLET PO (06:35)
[2018-10-14] MEDS: POTASSIUM CHLORIDE 20 MEQ TAB PO (08:26)
[2018-10-14] MEDS: DOXAZOSIN 4 MG TABLET PO (08:26)
[2018-10-14] MEDS: ASPIRIN EC 325 MG TABLET PO (08:26)
[2018-10-14] MEDS: PANTOPRAZOLE 40 MG TABLET PO ×2 (08:26→20:11)
[2018-10-14] MEDS: CARVEDILOL 12.5 MG TABLET PO (08:26)
[2018-10-14] MEDS: FUROSEMIDE 40 MG TABLET PO (08:26)
[2018-10-14] MEDS: DOCUSATE 100 MG CAPSULE PO ×2 (08:26→20:11)
[2018-10-14] MEDS: SODIUM CHLORIDE 0.9% FLUSH 10 ML IV ×2 (08:27→20:13)
[2018-10-14] MEDS: HEPARIN 5,000 UNIT/ML VIAL 5000 UNIT SUBCUT ×2 (08:27→20:12)
[2018-10-14] MEDS: QUETIAPINE 25 MG TABLET 50 MG PO ×3 (08:27→20:11)
[2018-10-14] MEDS: INSULIN ASPART 100 UNIT/ML INSULN PEN SUBCUT ×4 (08:27→20:09)
[2018-10-14] MEDS: DORZOLAMIDE/TIMOLOL OPHTH 10 ML 1 DROPS EYE-BOTH ×2 (08:28→20:12)
[2018-10-14] MEDS: POLYETHYLENE GLYCOL 3350 17 GM POWD.PACK PO (08:28)
--- NOTE | 2018-10-14 10:33 | PC.NURSE ---
Addendum entered by Nancy Guo R.N. 10/14/18 13:30: Blood sugars, 335 and 394, Dr Sheppard aware, new orders received. Original Note: Pt oriented to self, sitting at edge of bed. Pt calm and cooperative with taking medication, ate 100% breakfast. Bed alarm on.
--- NOTE | 2018-10-14 11:37 | PM.PN.1 ---
Subjective Date Patient Seen: 10/14/18 Interval history: Michele Barroso is a 77-year-old male with a past medical history significant for hypertension, hyperlipidemia, diabetes mellitus type 2, non-insulin using, chronic back pain with peripheral neuropathy, former smoker with [id number] lung cancer and metastases to the brain status post several rounds of chemotherapy and whole-brain radiation who presented for altered mental status. The patient is resting in the bed comfortably. He complains of back pain for which a K-pad is being placed. His behavior is better controlled with increased dose of Seroquel 50 mg 3 times daily. He is more somnolent but less agitated and aggressive. He reports he is tired. He continues to be moderately confused and unable to carry out a chain of thought that makes logical sense. He inquires as to why he is in the hospital and would like to know what is happening and I kindly reminded him about his brain tumor/metastases with brain swelling that we are trying to get under control. The patient's was present later in the day. I informed her that I have discussed his case with both Oncology and Psychiatry. Dr. Carvalho of Oncology from [facility] recommended discontinuing high-dose steroids as it has not changed the patient's cerebral edema and has possibly contributed to his psychoses. Therefore, will institute physiological doses of glucocorticoid and discontinue high-dose glucocorticoid therapy. Confirmed physiological glucocorticoid dose with endocrinology at [facility] who recommend 5 mg prednisone daily. Discussed case with Dr. Purcell of Psychiatry who plans to evaluate patient tomorrow to add any further recommendations in regard to controlling the patients behavior/agitation. The patient's expresses her displeasure regarding her son being kicked out of the hospital for verbal aggression toward multiple staff members. She inquires as to why there was not a warning before hand. I informed Olamide that there were multiple warnings given, including from myself, in regard to Ventura's verbal attacks and yelling. She would like to see documented proof of the several staff members who have complained and I have discussed this with risk/quality management. She also informs me that Ventura is pursuing cyber legal advisor. Exam Vital Signs (past 8 hours): - 10/14/18 11:09 10/14/18 15:11 Temperature 96.5 F L 97.9 F Pulse Rate 94 H 90 Respiratory Rate 17 18 Blood Pressure 108/57 L 102/55 L Pulse Oximetry 96 94 Fraction of Inspired Oxygen 21 Oxygen Delivery Method Room Air Oxygen Flow Rate 0 Narrative Exam Narrative: General: Elderly thin male sitting in bed and in no acute distress, appears chronically ill, moderate confusion with short-term memory recall deficit, alert oriented to person only, continues to be easily agitated but more somnolent. HEENT: Normocephalic, atraumatic. External ears without defect. Pupils equal, round, and reactive to light. Anicteric sclerae, moist conjunctivae, and no lid lag. Neck: Supple with full range of motion. No lymphadenopathy or thyromegaly. Cardiovascular: Heart sounds distant but appears to be irregularly irregular without murmurs, rubs, or gallops appreciated. Pulmonary: Diminished throughout but appears to be clear to auscultation bilaterally without crackles, wheezes, or rhonchi. Normal respiratory effort with no use of accessory muscles. Abdomen: Soft, bowel sounds present, nontender, nondistended. No hepatosplenomegaly or masses appreciated. Extremities: No clubbing, cyanosis, or edema. Skin: Normal temperature, turgor, and texture; no rash, ulcers, or subcutaneous nodules appreciated. Neurological: Cranial nerves grossly intact. Psychiatric: Alert oriented to person only. Moderate confusion with short-term memory recall deficit. Continues to be easily agitated and verbally agressive at times but more somnolent. Objective Labs Result Diagrams: 10/07/18 11:05 10/07/18 11:05 Assessment & Plan Assessment & Plan narrative: Michele Barroso is a 77-year-old male with a past medical history significant for hypertension, hyperlipidemia, diabetes mellitus type 2, non-insulin using, chronic back pain with peripheral neuropathy, former smoker with [id number] lung cancer and metastases to the brain status post several rounds of chemotherapy and whole-brain radiation who presented for altered mental status. 1. Chronic behavioral disturbance, secondary to advancing brain metasteses with cerebral edema and mass effect, present on admission. Active. -Patient has advancing brain mets with surrounding vasogenic edema and mass effect unresponsive to glucorticoids. -Limit amount of LEGAL PROJECT MANAGER depressant medications including opiates and benzodiazpines. -Reorient frequently. Allow patient to be awake and stimulated throughout the day and sleep at night with minimal interruptions. -Continue seroquel 50 mg three times daily and 25 mg every 6 hours as needed for agitation. Continue to titrate to behavior. May use soft restraints if chemical restraints do not suffice. -Ordered psychiatric consultation, pending. -UA was normal but urine culture was performed at hospitalists request and grew Enterococcus which was treated as below. 2. 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 Active. -Patient is status post multiple types and rounds of chemotherapy and full brain radiation. Recently on immunotherapy with Keytruda x 1 round. -Previously discussed with oncologist at [facility], Dr. Saud Carvalho, who reviewed imaging and is unclear if metastatic lesions are increasing but reports significant increase in vasogenic/cerebral edema with compression of right ventricle. He recommended and we increased Decadron from 4 mg to 8 mg every [address] brain imaging which demonstrated no improvement. -Discussed case again with Dr. Carvalho of Oncology from [facility] who is now recommending discontinuing high-dose steroids as it has not changed the patient's cerebral edema and has possibly contributed to his psychoses. Therefore, will institute physiological doses of glucocorticoid and discontinue high-dose glucocorticoid therapy. Confirmed physiological glucocorticoid dose with endocrinology at [facility] who recommend 5 mg prednisone daily. -[facility] team had been highly encouraging of hospice for which the patient's family did not seem to be willing to consider until further discussion with oncologist. Patient's family has now met with hospice and plan to sign/enroll. Continued plan is home on hospice which is circuitous and somewhat challenging target despite the assistance of social staff worker, meetings with family, etc. 3. Acute UTI vs. asymptomatic bacturia, present on admission. Resolved. -UA was normal but urine culture was performed at hospitalists request and grew Enterococcus. He was treated with ceftriaxone and levofloxacin for total of a 5 day antibiotic course. There is a strong possibility that this was asymptomatic bacteriuria but due to his delirium it was possible that this was contributing therefore was treated. 4. Acute on chronic constipation, present on admission. Improving. -Abdominal series demonstrated moderate colonic obstipation through the abdomen and pelvis bilaterally. -Implemented bowel regimen: Received dulcolax 10 mg x 1. Continue Colace 100 mg twice daily and MiraLax 17 g daily. Ordered senna and dulcolax suppository daily as needed for constipation. 5. Chronic atrial fibrillation, present on admission. Stable. -Currently rate controlled. -Continue carvedilol 12.5 mg twice daily. 6. Hypertension, chronic, present on admission. Stable. -Continue aspirin 325 mg daily, carvedilol 12.5 mg twice daily, furosemide 40 mg daily, and potassium chloride 20 mg daily. 7. Hyperlipidemia, chronic, present on admission. Stable. -Continue atorvastatin 10 mg daily at bedtime. 8. Diabetes mellitus type 2, non-insulin using, chronic, present on admission. Stable. -Hemoglobin A1c 5.9% in 04/2017. Ordered repeat hemoglobin A1c, pending. -Continue metformin 1000 mg daily in the morning and 500 mg daily before bedtime. -Continue [facility] blood glucose checks and low-dose correctional scale insulin. -Continue regular diet as patient is not eating and want to continue to encourage/stimulate him to eat. 9. Hypothyroidism, chronic, present on admission. Stable. -Continue levothyroxine 125 mcg daily. 10. BPH, chronic, present on admission. Stable. -Continue doxazosin 4 mg daily. 11. GERD, chronic, present on admission. Stable. -Continue omeprazole 40 mg twice daily. 12. Chronic back pain with peripheral neuropathy, chronic, present on admission. Stable. -Continue home oxycodone 7.5 every 4 hours as needed for moderate to severe pain. 13. Restless legs syndrome, chronic, present on admission. Stable. -Continue ropinirole 2.5 mg daily at bedtime. Disposition: Patient likely to discharge home with hospice in several days once behavior has been adequately controlled and he is safe to do so.
[2018-10-14] MEDS: OXYCODONE/ACETAMINOPHEN 5/325 TABLET 1.5 TAB PO ×3 (12:03→22:41)
[2018-10-14] MEDS: BISACODYL 10 MG SUPP PR (12:56)
--- NOTE | 2018-10-14 14:06 | CM.DPC ---
DCP/continued: Reviewed chart. Spoke with Dr. Sheppard, Cathy AGUILERAO, and Sarah Monsivais, Quality Mgmt this AM. Apparently, yesterday 5-19 patient's son/Ventura had been very disruptive during visit with patient. Per notes son demonstrated both irrational, verbal abuse towards MD and [facility] staff members. Security had to be called and son was asked to leave [facility]. Dr. Sheppard reports that she is making attempt to reach patient's ONC in [place] to determine next steps. She would like to 1)Transfer patient to under physician's that have treated him in the past. 2)Send patient home with or without hospice. Currently, patient has psychiatric evaluation scheduled here tomorrow. After much discussion with MD and Administration it is clear that if family does not feel that they are receiving adequate care at [facility] and continue to not trust our medical team then it may be best for them to leave. Patient's spouse/Olamide in room this afternoon requesting update from Dr. Sheppard. MUSIC EXECUTIVE notified Dr. Sheppard and she requests that MUSIC EXECUTIVE let her know she will be there as soon as she completes an emergent issue with another patient. P: Pending. CM team to continue to work with patient/spouse to secure safe discharge plan. Patient has been having some behavioral issues and hopefully psychiatric evaluation can assist. Patient currently does not qualify for SNF for rehabilitation. CHRIS Spear
[2018-10-14] MEDS: SENNOSIDES 8.6 MG TABLET 17.2 MG PO (14:43)
[2018-10-14] MEDS: INSULIN REGULAR 100 UNIT/ML 3 ML VIAL 10 UNIT IV (14:51)
--- NOTE | 2018-10-14 15:20 | P.PN_ITS ---
Subjective Date Patient Seen: 10/14/18 Interval history: Michele Barroso is a 77-year-old male with a past medical history significant for hypertension, hyperlipidemia, diabetes mellitus type 2, non-insulin using, chronic back pain with peripheral neuropathy, former smoker with [id number] lung cancer and metastases to the brain status post several rounds of chemotherapy and whole-brain radiation who presented for altered mental status. The patient is resting in the bed comfortably. He complains of back pain for which a K-pad is being placed. His behavior is better controlled with increased dose of Seroquel 50 mg 3 times daily. He is more somnolent but less agitated and aggressive. He reports he is tired. He continues to be moderately confused and unable to carry out a chain of thought that makes logical sense. He inquires as to why he is in the hospital and would like to know what is phillips ppening and I kindly reminded him about his brain tumor/metastases with brain swelling that we are trying to get under control. The patient's was present later in the day. I informed her that I have discussed his case with both Oncology and Psychiatry. Dr. Carvalho of On[facility] from [facility] recommended discontinuing high-dose steroids as it has not changed the patient's cerebral edema and has possibly contributed to his psychoses. Therefore, will institute physiological doses of glucocorticoid and discontinue high-dose glucocorticoid therapy. Confirmed physiological glucocorticoid dose with endocrinology at [facility] who recommend 5 mg prednisone daily. Discussed case with Dr. Purcell of Psychiatry who plans to evaluate patient tomorrow to add any further recommendations in regard to controlling the patients behavior/agitation. The patient's expresses her displeasure regarding her son being kicked out of the hospital for verbal aggression toward multiple staff members. She inq uires as to why there was not a warning before hand. I informed Olamide that there were multiple warnings given, including from myself, in regard to Ventura's verbal attacks and yelling. She would like to see documented proof of the several staff members who have complained and I have discussed this with risk/quality management. She also informs me that Ventura is pursuing legal department manager. Exam Vital Signs (past 8 hours): - 10/14/18 11:09 10/14/18 15:11 Temperature 96.5 F L 97.9 F Pulse Rate 94 H 90 Respiratory Rate 17 18 Blood Pressure 108/57 L 102/55 L Pulse Oximetry 96 94 Fraction of Inspired Oxygen 21 Oxygen Delivery Method Room Air Oxygen Flow Rate 0 Narrative Exam Narrative: General: Elderly thin male sitting in bed and in no acute distress, appears chronically ill, moderate confusion with short-term memory recall deficit, alert oriented to person only, continues to be easily agitated but more somnolent. HEENT: Normocephalic, atraumatic. External ears without defect. Pupils equal, round, and reactive to light. Anicteric sclerae, moist conjunctivae, and no lid lag. Neck: Supple with full range of motion. No lymphadenopathy or thyromegaly. Cardiovascular: Heart sounds distant but appears to be irregularly irregular without murmurs, rubs, or gallops appreciated. Pulmonary: Diminished throughout but appears to be clear to auscultation bilaterally without crackles, wheezes, or rhonchi. Normal respiratory effort with no use of accessory muscles. Abdomen: Soft, bowel sounds present, nontender, nondistended. No hepatosplenomegaly or masses appreciated. Extremities: No clubbing, cyanosis, or edema. Skin: Normal temperature, turgor, and texture; no rash, ulcers, or subcutaneous nodules appreciated. Neurological: Cranial nerves grossly intact. Psychiatric: Alert oriented to person only. Moderate confusion with short-term memory recall deficit. Continues to be easily agitated and verbally agressive at times but more somnolent. Objective Labs Result Diagrams: 10/07/18 11:05 10/07/18 11:05 Assessment & Plan Assessment & Plan narrative: Michele Barroso is a 77-year-old male with a past medical history significant for hypertension, hyperlipidemia, diabetes mellitus type 2, non-insulin using, chronic back pain with peripheral neuropathy, former smoker with [id number] lung cancer and metastases to the brain status post several rounds of chemotherapy and whole-brain radiation who presented for altered mental status. 1. Chronic behavioral disturbance, secondary to advancing brain metasteses with cerebral edema and mass effect, present on admission. Active. -Patient has advancing brain mets with surrounding vasogenic edema and mass effect unresponsive to glucorticoids. -Limit amount of PALS SPECIALIST depressant medications including opiates and benzodiazpines. -Reorient frequently. Allow patient to be awake and stimulated throughout the day and sleep at night with minimal interruptions. -Continue seroquel 50 mg three times daily and 25 mg every 6 hours as needed for agitation. Continue to titrate to behavior. May use soft restraints if chemical restraints do not suffice. -Ordered psychiatric consultation, pending. -UA was normal but urine culture was performed at hospitalists request and grew Enterococcus which was treated as below. 2. 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 Active. -Patient is status post multiple types and rounds of chemotherapy and full brain radiation. Recently on immunotherapy with Keytruda x 1 round. -Previously discussed with oncologist at [facility], Dr. Saud Carvalho, who reviewed imaging and is unclear if metastatic lesions are increasing but reports significant increase in vasogenic/cerebral edema with compression of right ventricle. He recommended and we increased Decadron from 4 mg to 8 mg every [address] brain imaging which demonstrated no improvement. -Discussed case again with Dr. Carvalho of Oncology from [facility] who is now recommending discontinuing high-dose steroids as it has not changed the patient's cerebral edema and has possibly contributed to his psychoses. Therefore, will institute physiological doses of glucocorticoid and discontinue high-dose glucocorticoid therapy. Confirmed physiological glucocorticoid dose with endocrinology at [facility] who recommend 5 mg prednisone daily. -[facility] team had been highly encouraging of hospice for which the patient's family did not seem to be willing to consider until further discussion with oncologist. Patient's family has now met with hospice and plan to sign/enroll. Continued plan is home on hospice which is circuitous and somewhat challenging target despite the assistance of 7th grade social studies teacher, meetings with family, etc. 3. Acute UTI vs. asymptomatic bacturia, present on admission. Resolved. -UA was normal but urine culture was performed at hospitalists request and grew Enterococcus. He was treated with ceftriaxone and levofloxacin for total of a 5 day antibiotic course. There is a strong possibility that this was asymptomatic bacteriuria but due to his delirium it was possible that this was contributing therefore was treated. 4. Acute on chronic constipation, present on admission. Improving. -Abdominal series demonstrated moderate colonic obstipation through the abdomen and pelvis bilaterally. -Implemented bowel regimen: Received dulcolax 10 mg x 1. Continue Colace 100 mg twice daily and MiraLax 17 g daily. Ordered senna and dulcolax suppository daily as needed for constipation. 5. Chronic atrial fibrillation, present on admission. Stable. -Currently rate controlled. -Continue carvedilol 12.5 mg twice daily. 6. Hypertension, chronic, present on admission. Stable. -Continue aspirin 325 mg daily, carvedilol 12.5 mg twice daily, furosemide 40 mg daily, and potassium chloride 20 mg daily. 7. Hyperlipidemia, chronic, present on admission. Stable. -Continue atorvastatin 10 mg daily at bedtime. 8. Diabetes mellitus type 2, non-insulin using, chronic, present on admission. Stable. -Hemoglobin A1c 5.9% in 04/2017. Ordered repeat hemoglobin A1c, pending. -Continue metformin 1000 mg daily in the morning and 500 mg daily before bedtime. -Continue [facility] blood glucose checks and low-dose correctional scale insulin. -Continue regular diet as patient is not eating and want to continue to encour age/stimulate him to eat. 9. Hypothyroidism, chronic, present on admission. Stable. -Continue levothyroxine 125 mcg daily. 10. BPH, chronic, present on admission. Stable. -Continue doxazosin 4 mg daily. 11. GERD, chronic, present on admission. Stable. -Continue omeprazole 40 mg twice daily. 12. Chronic back pain with peripheral neuropathy, chronic, present on admission. Stable. -Continue home oxycodone 7.5 every 4 hours as needed for moderate to severe pain. 13. Restless legs syndrome, chronic, present on admission. Stable. -Continue ropinirole 2.5 mg daily at bedtime. Disposition: Patient likely to discharge home with hospice in several days once behavior has been adequately controlled and he is safe to do so.
[2018-10-14] MEDS: LORazepam 1 MG TABLET PO (20:04)
[2018-10-14] MEDS: INSULIN GLARGINE 100 UNIT/ML 3ML PEN 30 UNIT SUBCUT (20:05)
[2018-10-14] MEDS: LATANOPROST 0.005% OPHTH 2.5 ML 1 DROPS EYE-BOTH (20:05)
[2018-10-14] MEDS: ATORVASTATIN 10 MG TABLET PO (20:11)
[2018-10-15] VITALS (9 sets, daily range): BP systolic 88–161; BP diastolic 47–92; PULSE 87–106; RESP 18–20; TEMP 36.1–36.7; O2SAT 93–97
--- NOTE | 2018-10-15 08:04 | P.PN_ITS ---
Subjective Date Patient Seen: 10/15/18 Interval history: Michele Barroso is a 77-year-old male with a past medical history significant for hypertension, hyperlipidemia, diabetes mellitus type 2, non-insulin using, chronic back pain with peripheral neuropathy, former smoker with [id number] lung cancer and metastases to the brain status post several rounds of chemotherapy and whole-brain radiation who presented for altered mental status. The patient is resting in the bed comfortably. He is rather somnolent but arousable. The patients behavior is now controlled with Seroquel 50 mg 3 times daily. He is less agitated and aggressive verbally but he is persistently rude and unkind verbally to some degree. He continues to report he is tired. He continues to be moderately confused and unable to carry out a logical chain of thought. Plan is for Psychiatry to evaluate patient to assess medications and add any additional recommendations. Exam Vital Signs (past 8 hours): - 10/15/18 00:25 10/15/18 00:26 10/15/18 08:00 Temperature 96.9 F L 98.1 F Pulse Rate 87 88 Respiratory Rate 20 18 Blood Pressure 161/92 H 123/61 Pulse Oximetry 96 96 94 Fraction of Inspired Oxygen 21 Oxygen Delivery Method Room Air Oxygen Flow Rate 0 Narrative Exam Narrative: General: Elderly thin male sitting in bed and in no acute distress, appears chr onically ill, moderate confusion with short-term memory recall deficit, alert oriented to person only, somnolent but easily arousable, behavior controlled. HEENT: Normocephalic, atraumatic. External ears without defect. Pupils equal, round, and reactive to light. Anicteric sclerae, moist conjunctivae, and no lid lag. Neck: Supple with full range of motion. No lymphadenopathy or thyromegaly. Cardiovascular: Heart sounds distant but appears to be irregularly irregular without murmurs, rubs, or gallops appreciated. Pulmonary: Diminished throughout but appears to be clear to auscultation bi laterally with slight crackle on right. No wheezes or rhonchi. Normal respiratory effort with no use of accessory muscles. Abdomen: Soft, bowel sounds present, nontender, nondistended. No hepatospl enomegaly or masses appreciated. Extremities: No clubbing, cyanosis, or edema. Skin: Normal temperature, turgor, and texture; no rash, ulcers, or subcutaneous nodules appreciated. Neurological: Cranial nerves grossly intact. Psychiatric: Alert oriented to person only. Moderate confusion with short-term memory recall deficit. Somnolent and behavior well controlled. Objective Labs Result Diagrams: 10/07/18 11:05 10/07/18 11:05 Assessment & Plan Assessment & Plan narrative: Michele Barroso is a 77-year-old male with a past medical history significant for hypertension, hyperlipidemia, diabetes mellitus type 2, non-insulin using, chronic back pain with peripheral neuropathy, former smoker with [id number] lung cancer and metastases to the brain status post several rounds of chemothera py and whole-brain radiation who presented for altered mental status. 1. Chronic behavioral disturbance, secondary to advancing brain metasteses with cerebral edema and mass effect, present on admission. Active. -Patient has advancing brain mets with surrounding vasogenic edema and mass effect unresponsive to glucorticoids. -Limiting amount of WEB COMMUNICATIONS SPECIALIST depressant medications including opiates and benzodiazpines. -Reorient frequently. Allow patient to be awake and stimulated throughout the day and sleep at night with minimal interruptions. -Continue seroquel 50 mg three times daily and 25 mg every 6 hours as needed for agitation. Continue to titrate to behavior. May use soft restraints if chemical restraints do not suffice. -Ordered psychiatric consultation with Dr. Purcell who plans to see the patient today. -UA was normal but urine culture was performed at hospitalists request and grew Enterococcus which was treated as below. 2. 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 Active. -Patient is status post multiple types and rounds of chemotherapy and full brain radiation. Recently on immunotherapy with Keytruda x 1 round. -Previously discussed with oncologist at [facility], Dr. Saud Carvalho, who reviewed imaging and is unclear if metastatic lesions are increasing but reports significant increase in vasogenic/cerebral edema with compression of right ventricle. He recommended and we increased Decadron from 4 mg to 8 mg every [address] brain imaging which demonstrated no improvement in vasogenic edema. -Discussed case again with Dr. Saud Carvalho of Oncology from [facility] who recommended discontinuing high-dose steroids as it has not changed the patient's cerebral edema and has possibly contributed to his psychoses. Therefore, discontinued high dose glucocorticoid therapy and instituted physiological dose of glucocorticoid as patient has had adrenal insufficiency in the past which was confirmed with endocrinology at [facility]. Continue prednisone 5 mg daily. Blood pressure has been stable. -[facility] team had been highly encouraging of hospice for which the patient's family did not seem to be willing to consider until further discussion with oncologist. Patient's family has now met with hospice and plan to sign/enroll. Continued plan is home on hospice which is circuitous and somewhat challenging target despite the assistance of social media editor, meetings with family, etc. 3. Acute UTI vs. asymptomatic bacturia, present on admission. Resolved. -UA was normal but urine culture was performed at hospitalists request and grew Enterococcus. He was treated with ceftriaxone and levofloxacin for total of a 5 day antibiotic course. There is a strong possibility that this was asymptomatic bacteriuria but due to his delirium it was possible that this was contributing therefore was treated. 4. Acute on chronic constipation, present on admission. Improving. -Abdominal series demonstrated moderate colonic obstipation through the abdomen and pelvis bilaterally. -Implemented bowel regimen: Received dulcolax 10 mg x 1. Continue Colace 100 mg twice daily and MiraLax 17 g daily. Ordered senna and dulcolax suppository daily as needed for constipation. 5. Chronic atrial fibrillation, present on admission. Stable. -Currently rate controlled. -Continue carvedilol 12.5 mg twice daily. 6. Hypertension, chronic, present on admission. Stable. -Continue aspirin 325 mg daily, carvedilol 12.5 mg twice daily, furosemide 40 mg daily, and potassium chloride 20 mg daily. 7. Hyperlipidemia, chronic, present on admission. Stable. -Continue atorvastatin 10 mg daily at bedtime. 8. Diabetes mellitus type 2, non-insulin using, chronic, present on admission. Stable. -Hemoglobin A1c 5.9% in 04/2017. Ordered repeat hemoglobin A1c, pending. -Continue metformin 1000 mg daily in the morning and 500 mg daily before bedtime . -Continue ACHS blood glucose checks and low-dose correctional scale insulin. -Continue regular diet as patient is not eating and want to continue to encourage/stimulate him to eat. 9. Hypothyroidism, chronic, present on admission. Stable. -Continue levothyroxine 125 mcg daily. 10. BPH, chronic, present on admission. Stable. -Continue doxazosin 4 mg daily. 11. GERD, chronic, present on admission. Stable. -Continue omeprazole 40 mg twice daily. 12. Chronic back pain with peripheral neuropathy, chronic, present on admission. Stable. -Continue home oxycodone 7.5 every 4 hours as needed for moderate to severe pain. 13. Restless legs syndrome, chronic, present on admission. Stable. -Continue ropinirole 2.5 mg daily at bedtime. Disposition: Patient is medically stable and cleared to discharge and will likely discharge home with hospice in 1-2 days once he has been enrolled in hospice and equipment has been delivered.
[2018-10-15] MEDS: POTASSIUM CHLORIDE 20 MEQ TAB PO (08:39)
[2018-10-15] MEDS: CARVEDILOL 12.5 MG TABLET PO (08:40)
[2018-10-15] MEDS: DOXAZOSIN 4 MG TABLET PO (08:40)
[2018-10-15] MEDS: ASPIRIN EC 325 MG TABLET PO (08:40)
[2018-10-15] MEDS: DOCUSATE 100 MG CAPSULE PO ×2 (08:40→22:00)
[2018-10-15] MEDS: POLYETHYLENE GLYCOL 3350 17 GM POWD.PACK PO (08:40)
[2018-10-15] MEDS: QUETIAPINE 25 MG TABLET 50 MG PO ×3 (08:41→21:22)
[2018-10-15] MEDS: LEVOTHYROXINE 125 MCG TABLET PO (08:41)
[2018-10-15] MEDS: FUROSEMIDE 40 MG TABLET PO (08:41)
[2018-10-15] MEDS: PANTOPRAZOLE 40 MG TABLET PO ×2 (08:42→22:01)
[2018-10-15] MEDS: predniSONE 5 MG TABLET PO (08:42)
[2018-10-15] MEDS: DORZOLAMIDE/TIMOLOL OPHTH 10 ML 1 DROPS EYE-BOTH ×2 (08:42→21:58)
[2018-10-15] MEDS: SODIUM CHLORIDE 0.9% FLUSH 10 ML IV ×2 (08:43→22:03)
[2018-10-15] MEDS: HEPARIN 5,000 UNIT/ML VIAL 5000 UNIT SUBCUT ×2 (09:55→22:02)
--- NOTE | 2018-10-15 11:32 | PC.NURSE ---
Addendum entered by Emerita Yoo R.N. 10/15/18 14:35: Pt's states pt was agitated, throwing chip bag and glasses. Olamide upset, stating the agitation is due to the discontinuation of Dexamethasone. pt due for scheduled Seroquel, pt was able to take that dose. Olamide requested pt to have a chocolate cookie, sugar free, none available, other food choices offered. BG at lunch reported to Olamide as 137. Olamide wanted pt to have 1 chocolate cookie at this time to calm his agitation. Original Note: Day Shift- Reported from night court magistrate that pt slept well. ORNAMENTAL RAIL INSTALLER 1:1 assigned this shift, pt OOB to chair for breakfast, follows direction. Pt does state, do what you need to do. Oriented to self only. Agitated at times for this RN when performing a task, states words firmly, does not make eye contact. Took meds whole in plastic cup that had given staff to use. Took with water without difficulty. Pt repositions himself in bed from side to side. Pt's Olamide, arrived to unit around 1100, update given, Olamide's questions and answers are direct and firm. Awaiting Psych eval.
[2018-10-15] MEDS: OXYCODONE/ACETAMINOPHEN 5/325 TABLET 1.5 TAB PO ×3 (12:13→21:22)
[2018-10-15] MEDS: INSULIN ASPART 100 UNIT/ML INSULN PEN SUBCUT ×3 (13:15→22:02)
--- NOTE | 2018-10-15 13:52 | PC.NURSE ---
13:45- pt. started to slide down in chair on right side. Brought multiple warm blankets like he asked. pt said No you didnt. offered to move pt. to bed to become more comfortable b/c he was falling asleep. Pt. did not respond so Rn and myself reclined chair and placed pillow under his head as well as covered him up with some warm blankets. Whole 1:1 shift, I have done everything they both, (pt. and ) have asked. pt is now in chair reclined, sleeping.
--- NOTE | 2018-10-15 17:06 | CM.DPC ---
DCP/continued: Received a call from Janiya at Hospice today. She reports that they have scheduled appointment tomorrow with family to sign hospice consents. Janiya reports that spouse told her that family will decide when patient discharges from [facility] Hospice reports that spouse/family continue to be unhappy with care received at [facility]. Unsure on date of DME delivery? Dr. Sheppard aware. P: Home with hospice once consents signed, DME delivered, and visit scheduled. HARD METALS ENGRAVER HAND to follow closely. CHRIS Spear
--- NOTE | 2018-10-15 18:41 | PM.CN ---
History of Present Illness Date Patient Seen: 10/15/18 Time Patient Seen: 12:30 Chief complaint: MULTIPLE COMPLAINTS,ADVANCED STAGE BRAIN CANCER Reason for consult: Agitation and combative behavior Requesting provider: Trinh Sheppard Narrative: CC: ?They won't give you my towels.? HOSPITAL COURSE: Michele Barroso is a 77-year-old male with a long past medical history significant for hypertension, hyperlipidemia, diabetes mellitus type 2, chronic back pain, peripheral neuropathy, and a former smoker with non-small cell lung cancer and metastases to the brain status post several rounds of chemotherapy and whole brain radiation. He presented to the emergency department for altered mental status and is currently under the care of Dr. Leon's at the [facility]. The patient's family brought him in for the 2nd time in a week for abrupt onset of mental status changes. The family reports that he has stopped eating and drinking, is often confused, does not take pills on time or refuses, and is intermittently combative and aggressive. COLLATERAL FROM STAFF: As noted above the patient can frequently become aggressive, confused, and combative. Hospital staff note that there has been some tension between staff and the patient's family and at times the patient himself which has only serve to worsen the patient is often aggressive behavior. INTERVIEW: The patient is an extremely poor historian as his lung cancer metastases to his brain has significantly affected his mentation. He scored a 3/30 on the mini-mental status exam and could not correctly identify the date, the location, or perform any other cognitive task. He often attempted to defer the answers to questions to his or to dissemble and confabulate and answer to a question. When asked about somewhat distant memories he was fairly accurate but still distorted and his often had to provide clarify details. He denied any current psychiatric symptoms and stated that he was mostly frustrated with the poor service from the staff in providing warm towels. His was able to correct his statement to note that he meant additional warm blankets. 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 PCP: SIGNIFICANT MEDICAL HISTORY: As above [facility] Medical History Anxiety (Acute) BPH (benign prostatic hyperplasia) (Acute) Chronic back pain (Acute) Depression (Acute) GERD (gastroesophageal reflux disease) (Acute) Hyperlipidemia (Acute) Hypertension (Acute) Hypothyroidism (Acute) Peripheral neuropathy (Acute) Atrial fibrillation (Acute) Diabetes (Acute) Lung cancer (Acute) Surgical History Previous back surgery (Acute) Family History Mother No problems noted. Social History household members: spouse and family Smoking Status: Former smoker alcohol intake: former Family History Mother No problems noted. Social History household members: spouse and family Smoking Status: Former smoker alcohol intake: former Meds Home Medications Medication Instructions Recorded Confirmed Type levothyroxine [Synthroid] 125 mcg PO DAILY #0 05/02/17 10/07/18 History metformin [Glucophage] 1,000 mg PO QAM #0 05/02/17 10/07/18 History albuterol sulfate [ProAir HFA] 2 puff INHALATION Q6H PRN 04/10/18 10/07/18 History atorvastatin 10 mg PO BEDTIME 04/10/18 10/07/18 History dorzolamide-timolol 1 drp OPHTHALMIC (EYE) BID 04/10/18 10/07/18 History ketoconazole 1 applic TOPICAL BID 04/10/18 10/07/18 History latanoprost 1 drp OPHTHALMIC (EYE) BEDTIME 04/10/18 10/07/18 History metoclopramide HCl 10 mg PO Q6H PRN 04/10/18 10/07/18 History metronidazole 1 applic TOPICAL BID 04/10/18 10/07/18 History omeprazole 40 mg PO BID 04/10/18 10/07/18 History sennosides [senna] 17.2 mg PO BEDTIME PRN MDD 2 tabs 04/10/18 10/07/18 History CoQ-10 300 mg PO DAILY 08/22/18 10/07/18 History aspirin 325 mg PO DAILY 08/22/18 10/07/18 History carvedilol 12.5 mg PO BID 08/22/18 10/07/18 History cholecalciferol (vitamin D3) 5,000 unit PO DAILY 08/22/18 10/07/18 History [Vitamin D3] doxazosin 4 mg PO DAILY 08/22/18 10/07/18 History ferrous sulfate [iron] 325 mg PO DAILY 08/22/18 10/07/18 History furosemide 40 mg PO DAILY 08/22/18 10/07/18 History lorazepam 1 mg PO BEDTIME PRN 08/22/18 10/07/18 History metformin 500 mg PO QPM 08/22/18 10/07/18 History niacin 500 mg PO DAILY 08/22/18 10/07/18 History ropinirole 0.5 mg PO BEDTIME PRN 08/22/18 10/07/18 History ropinirole 2 mg PO BEDTIME PRN 08/22/18 10/07/18 History dexamethasone [Decadron] 4 mg PO Q6H #28 tab 10/01/18 10/07/18 Rx escitalopram oxalate 20 mg PO DAILY 10/01/18 10/07/18 History lactulose [Generlac] 1 dose PO DIRECTED 10/01/18 10/07/18 History magnesium 250 mg PO DAILY 10/01/18 10/07/18 History modafinil 200 mg PO DAILY 10/01/18 10/07/18 History oxycodone-acetaminophen 1 tab PO Q4H PRN 10/01/18 10/07/18 History potassium chloride 20 meq PO DAILY 10/01/18 10/07/18 History prednisone 10 mg PO DAILY 10/01/18 10/07/18 History testosterone cypionate 200 mg IM QMONTH 10/01/18 10/07/18 History olanzapine 15 mg PO BEDTIME 10/07/18 10/07/18 History Allergies Allergy/AdvReac Type Severity Reaction Status Date / Time metoprolol [METOPROLOL] AdvReac Severe FATIGUE Verified 08/22/18 08:46 pravastatin [PRAVASTATIN] AdvReac Severe ARTHALGIAS Verified 08/22/18 08:46 Exam Vital Signs (past 8 hours): - 10/15/18 12:30 10/15/18 15:30 10/15/18 16:35 Temperature 98.0 F 97.8 F Pulse Rate 90 106 H Respiratory Rate 19 20 Blood Pressure 88/81 L 118/67 Pulse Oximetry 95 93 97 Fraction of Inspired Oxygen 21 Oxygen Delivery Method Room Air Oxygen Flow Rate 0 Narrative Exam Narrative: MENTAL STATUS EXAM: Appearance: Neatly groomed, casually dressed, appears stated age Behavior: Calm, cooperative, good eye contact, no psychomotor agitation or slowing, no tremor or involuntary movements observed Gait: Normal gait Speech: Normal rate, volume, and leander Mood: I am frustrated Affect: Congruent with content, normal range and reactivity Thought Process: Linear, logical, goal-directed Thought Content: Denies suicidal ideation, denies homicidal ideation, denies hallucinations, no evidence of paranoia or delusions Attention: Attentive to interview Orientation: Oriented to person place and time Memory: Intact for interview, not formally tested Insight: Fair Judgment: Fair Objective Labs Result Diagrams: 10/07/18 11:05 10/07/18 11:05 Assessment & Plan (1) Lung cancer: Qualifiers: Laterality: unspecified laterality Lung location: unspecified part of lung Qualified Code(s): C34.90 - Malignant neoplasm of unspecified part of unspecified bronchus or lung Current visit: No Status: Acute (2) Adult failure to thrive: Current visit: Yes Status: Acute (3) Delirium due to another medical condition, acute, mixed level of activity: Current visit: Yes Status: Acute Assessment & Plan narrative: ASSESSMENT: This is a 77-year-old man with a history of metastatic lung cancer to the brain with significant mental status changes and occasional episodes of combative behavior. DIAGNOSES: Delirium due to brain metastases RECOMMENDATIONS: 1. Quetiapine 25-50 mg p.o. t.i.d. as needed for agitation 2. Continue environmental cues for orientation as you are already doing. 3. Involve hospice nurse as soon as possible to engage regarding comfort care for the patient. 4. Will continue to follow up with you while the patient is in the hospital. Time Spent With Patient Time with patient: 25 - 35 minutes
[2018-10-15] MEDS: ATORVASTATIN 10 MG TABLET PO (21:23)
[2018-10-15] MEDS: LORazepam 1 MG TABLET PO (21:23)
[2018-10-15] MEDS: LATANOPROST 0.005% OPHTH 2.5 ML 1 DROPS EYE-BOTH (22:01)
--- NOTE | 2018-10-15 22:18 | PC.NURSE ---
Addendum entered by Heather Pham R.N. 10/15/18 23:48: 2345- updated on pt plan of care. she is still very worried about his low dose of prednisone and worries that he isn't getting enough. did try to reiterate what md told me and what notes say. Olamide doesn't believe that dr benites spoke with Deven about the prednisone or any other secured entrance monitor. she is very worried and reiterates that this last week has been very stressful and she as the POA does not believe that she is able to make decisions about his care. she is also very upset that her son has been prevented from coming here and lost the ability to speak with his father when he was still lucid (believing that the steroid was really helping him). will continue to monitor pt for safety. bed alarm on. blankets provided. pt frequently throws them off as he states he gets too hot. Original Note: blane shift- 1500- assumed care of pt from outgoing shift. PT , olamide at bedside. olamide is concerned about pt's steroid dosing. told pt I would discuss with MD in charge. Pt awake and alert at this time. oriented to self. pt is pleasant and cooperative. at this time. 1615- very upset and worried about pt. discussed that md has multiple patients. upset and angry. states she is leaving because she doesn't want to watch this she is getting so frustrated and upset by all of this 2100- pt became agitated and worried. was refusing multiple things until he was able to locate his wallet. we told his that his wallet was at home with his olamide, but he didn't believe us. we had to call and have her tell him that his wallet was at home. did overhear some part of pt's conversation Well you better watch it because when I'm home, I'm in charge, and other aggressive words. Pt also said well get my wallet and bring it here with $50,000 and get me out of here, and when I get out you better watch it. pt stated, they haven't fed me, etc Pt was also talking to son, john, as he was stating his name while on the phone. pt asked if he wanted pain meds, he stated no, but while on the phone they told him to take the medication. pt stated if you have two percocet, I'll take those. given percocet, pt took pills without difficulty. was refusing blood pressure checks and glucose checks but around 2129- pt was compliant when asked for bp checks and glucose check. Pt stated I haven't been fed, I am hungry- given half of sandwich. pt quieted down and took the rest of his pills and given novolog and eye drops. pt laid down, covered with blankets, bed alarm on. pt wuiet and calm. will continue to monitor. 2229- olamide came in to see pt.
[2018-10-16] VITALS (13 sets, daily range): BP systolic 103–134; BP diastolic 43–85; PULSE 78–111; RESP 15–20; TEMP 36.4–36.8; O2SAT 94–96
--- NOTE | 2018-10-16 02:02 | PC.NURSE ---
Addendum entered by Miranda Stahl R.N. 10/16/18 05:16: 0515: Pt requesting pain medication at this time and willing took 1.5 tabs Percocet PO and scheduled 1mg Ativan PO per JUL. Addendum entered by Miranda Stahl R.N. 10/16/18 05:00: 0500: Have made multiple attempts to offer pt pain medication and scheduled Ativan 1mg PO to which pt continues to decline. He responds to question about if he's having pain with a simple no just once, and will not answer if asked again. Pt awoke and only request was for a piece of toast and warm towels and would not take offers of anything else. This RN made good kaushal effort to provide adequate pain relief and to keep with scheduled medications. Original Note: Shift Note: 2300: Came on shift to find evening shift nurse talking to pt's and DPTAY Quiñonez. Olamide was very upset that pt's medication had been changed from her understanding that pt would be receiving 20mg of Prednisone but had 5mg Prednisone ordered. Evening shift nurse tried to educate Olamide on the orders and even showed her the note from Dr Sheppard, but Olamide continued to argue about how much Prednisone the pt needed and that as his DPOA she should have the power to make decisions regarding his care. Olamide stated there's now way Dr Carvalho would only order 5mg of Prednisone and that Dr Sheppard must have not spoken to him and spoke to someone else. Olamide was asked if she believed that Dr Sheppard was lying or questioning Dr Sheppard's integrity as a provider, which Olamide was elusive in answer. Evening shift nurse spent copious amounts of time with Olamide and this RN attempted to educate Olamide as well after she asked and who are you, explained that this RN was going to be pt's nurse for cnc machinist 2nd shift. Olamide stated that that talking to this RN and evening shift RN was like talking to a brick wall and how the hospital had prevented son Ventura from getting a chance to talk to pt while he had been lucid. Olamide stated before she left that she had a call in with PA about pt, and would follow up in the morning and left for the night. 0100: Pt was moving around in bed, went in to assess pt, to check vital signs and glucose POC, and administer scheduled Ativan 1mg PO. Pt reporting pain and offered Percocet 1.5 tab to which pt agreed to initially. Completed my assessment and went to retrieve medications from med room. Upon returning pt now refusing all meds, made multiple attempts to retry to which pt continued to decline despite reporting pain. He stated I already answered you. Pt appears to be resting comfortably in bed and makes regular changes to body position. Will continue to monitor for safety, pt has a 1:1 for direct care when needed, is a high fall risk due to mentation, difficulty ambulating, and history of falls.
--- NOTE | 2018-10-16 03:04 | PC.NURSE ---
Ed sat in shantell for about 10 min then went for a short walk with walker and gait belt went back to room laid down in bed went to sleep
[2018-10-16] MEDS: OXYCODONE/ACETAMINOPHEN 5/325 TABLET 1.5 TAB PO ×2 (05:15→20:42)
[2018-10-16] MEDS: LORazepam 1 MG TABLET PO (05:15)
[2018-10-16] MEDS: LEVOTHYROXINE 125 MCG TABLET PO (06:12)
--- NOTE | 2018-10-16 08:14 | PC.NURSE ---
HUNTER: box order person sitting outside of the room, got patient water, coffee and warm blankets. Patient is sleeping in the chair with chair alarm on and call light and personal items in reach. Patient is not wanting his vitals taken or to wake up at this time
--- NOTE | 2018-10-16 08:22 | CM.DPC ---
Addendum entered by CHRIS Hays 10/16/18 15:27: ADD: Call back from Agnes at [facility] stating that spouse has decided to postpone DME delivery and signing consents until she speaks with pt's Oncologist in [place]. SW updated MD and RN and MD speaking with Sarah Monsivais in Risk Management. Call from Sarah Monsivais with update on hospital energy attorney and family energy attorney discussions and hospital decision not to have son on campus without supervision. and CHRIS Gardner met bedside with spouse and DIL with decision that pt is medically stable for d/c and spouse initiated Medicare Appeal of discharge as well as requested Hospice Consents to sign now. *please see more detailed note from Kendra today 10/16/18. Plan: SW to follow closely tomorrow for discharge appeal and [facility] DME delievery and start date. CHRIS Hays Original Note: [facility] Planning Per MD and RN, spouse and son have been hesitant to keep hospital staff involved in Hospice planning and state that the hospital is not in charge of d/c planning and deciding when Edward will be discharged. Staff working hard to keep family and pt comfortable and involved in care although son has been asked to not be bedside at this time due to his current inability not to be confrontational and angry with staff. Per , Oncologist involved states that steroid tx is futile and recommends discontinuing and pt now with controlled behaviors with some sedation. JAVIER called [facility] and spoke to Renetta who confirms that plan is for DME to be delivered to the home today as well as Consents to be signed with spouse in the hospital cafeteria today 10/16/18. Agnes states that she will call SW to confirm when DME and Consents are officially signed. Agnes also states that currently they are at capacity but anticipate possible opening tomorrow 10/17/18 and when next opening is available they will open pt to service. Agnes has updated their staff on pt, spouse, and son behaviors and interactions to be well prepared for how to best support and interact with them. Plan: SW to follow closely for confirmation from [facility] when DME and Consents officially signed today with tentative opening for Hospice tomorrow 10/17/18 if spot becomes available. CHRIS Hays
[2018-10-16] MEDS: INSULIN ASPART 100 UNIT/ML INSULN PEN SUBCUT ×3 (08:55→17:52)
[2018-10-16] MEDS: DOCUSATE 100 MG CAPSULE PO ×2 (10:26→20:26)
[2018-10-16] MEDS: SODIUM CHLORIDE 0.9% FLUSH 10 ML IV (10:26)
[2018-10-16] MEDS: CARVEDILOL 12.5 MG TABLET PO ×2 (10:26→20:24)
[2018-10-16] MEDS: ASPIRIN EC 325 MG TABLET PO (10:28)
[2018-10-16] MEDS: POLYETHYLENE GLYCOL 3350 17 GM POWD.PACK PO (10:29)
[2018-10-16] MEDS: FUROSEMIDE 40 MG TABLET PO (10:29)
[2018-10-16] MEDS: predniSONE 5 MG TABLET PO (10:31)
[2018-10-16] MEDS: HEPARIN 5,000 UNIT/ML VIAL 5000 UNIT SUBCUT ×2 (10:31→20:29)
[2018-10-16] MEDS: PANTOPRAZOLE 40 MG TABLET PO ×2 (10:32→20:26)
[2018-10-16] MEDS: POTASSIUM CHLORIDE 20 MEQ TAB PO (10:32)
[2018-10-16] MEDS: DOXAZOSIN 4 MG TABLET PO (10:37)
[2018-10-16] MEDS: DORZOLAMIDE/TIMOLOL OPHTH 10 ML 1 DROPS EYE-BOTH ×2 (10:39→20:24)
--- NOTE | 2018-10-16 10:47 | PC.NURSE ---
Addendum entered by Anusha Bourne 10/16/18 13:04: Recheck HR after medication--105, continues elevated. bp stable, denies dizziness Original Note: Patient calm this am shift, denies wanting breakfast and medication several times, with third re-approach he accepted am medications and breakfast. Ongoing confusion noted, alert to self and birthday. vitals stable, mildly tachy prior to am medications, will re-check.
--- NOTE | 2018-10-16 13:03 | P.DS_ITS ---
History of Present Illness Date Patient Seen: 10/07/18 Chief complaint: MULTIPLE COMPLAINTS,ADVANCED STAGE BRAIN CANCER Narrative: Written by myself Dr. Sheppard: Michele Barroso is a 77-year-old male with a past medical history significant for hypertension, hyperlipidemia, diabetes mellitus type 2, non-insulin using, chronic back pain with peripheral neuropathy, former smoker with [id number] lung cancer and metastases to the brain status post several rounds of chemotherapy and whole-brain radiation who presented for altered mental status. He is currently under the care of Dr. Saud Carvalho at the [facility] with most recent immunotherapy Keytruda 2 weeks ago. The patient's family brought the patient in today for the second time time in 1 week for abrupt onset mental status change. He was sent by the [facility] for evaluation, stabilization and the hopes that he could be admitted with hospice consult. The patient's family reports that he has stopped eating and drinking and has not had a bowel movement in 5 days. They report he is often confused, doesn't take pills on time or refuses, and is intermittently combative and aggressive. The patient's son is overly involved and voices frustration with his father's cancer care due to lack of co mmunication/miscommunication of his cancer team with one another and the lack of communication/miscommunication with the patient and his family. The patient's family does not seem to grasp the severity of his prognosis and do not believe that he is terminal. They report that at one time he received the incorrect diagnosis. The patient's family would like the patient to be full code as those were the patient's previous wishes. Discussed the patient's chance of resuscitation in detail for which they would like to keep as full code despite the likelihood that we would be unsuccessful and the patient would enter suffering or if resuscitation efforts were successful likelihood that he would not be able to be extubated. The patient is resting in bed comfortably. He is alert and oriented to person only. When specifically asked about his appetite, he endorses a robust appetite but reports that he does not want to eat despite his appetite. He has sustained no injuries. He has no signs of infection. He denies headache, chest pain, shortness of breath, abdominal pain, nausea, vomiting, fever, chills, dysuria, or diarrhea. He endorses malaise and reports ?something is wrong with me but do not know what? and ?is this what it feels like when your dying?? He was seen on 10/01 under similar circumstances and head CT noted some edema around the brain metastases. At that time he was started on Decadron 4 mg every 6 hours for cerebral edema per on-call [facility] oncologist which has been continued recently (previously stopped in became adrenal insufficient). Discharge Providers Date of admission: 10/08/18 13:08 Discharge Date: 10/16/18 Primary care physician: Allen Zaragoza MD Consults: 10/07/18 12:41 Consult to Reptile Keeper Stat Comment: hospice, failure to thrive, placement issue 10/07/18 12:45 Consult to Occupational Therapy Evaluate & Treat Comment: Physician Instructions: Evaluate and treat Consult to Physical Therapy Evaluate & Treat Comment: Physician Instructions: Evaluate and Treat 10/07/18 14:19 Consult to Dietitian, Adult Routine Comment: New Dx brain CA. Decrease in oral intake Reason For Exam: Poor food intake 10/14/18 07:48 Consult to Physician Routine Comment: Consulting Provider: Ventura Purcell Reason for consultation: Brain mets with behavioral disturbance Has provider been notified: Yes Discharge provider: Trinh Sheppard DO Summary Discharge Diagnosis: 1. Chronic behavioral disturbance, secondary to advancing brain metasteses with cerebral edema and mass effect, present on admission. Stable. 2. 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 Active. 3. Acute UTI vs. asymptomatic bacturia, present on admission. Resolved. 4. Acute on chronic constipation, present on admission. Improving. 5. Chronic atrial fibrillation, present on admission. Stable. 6. Hypertension, chronic, present on admission. Stable. 7. Hyperlipidemia, chronic, present on admission. Stable. 8. Diabetes mellitus type 2, non-insulin using, chronic, present on admission. Stable. 9. Hypothyroidism, chronic, present on admission. Stable. 10. BPH, chronic, present on admission. Stable. 11. GERD, chronic, present on admission. Stable. 12. Chronic back pain with peripheral neuropathy, chronic, present on admission. Stable. 13. Restless legs syndrome, chronic, present on admission. Stable. Hospital Course: Michele Barroso is a 77-year-old male with a past medical history significant for hypertension, hyperlipidemia, diabetes mellitus type 2, non-insulin using, chronic back pain with peripheral neuropathy, former smoker with [id number] lung cancer and metastases to the brain status post several rounds of chemotherapy and whole-brain radiation who presented for altered mental status. 1. Chronic behavioral disturbance, secondary to advancing brain metasteses with cerebral edema and mass effect, present on admission. Stable. -Patient has advancing brain mets with surrounding vasogenic edema and mass effect unresponsive to glucorticoids. -Limited amount of ENDOSCOPY NURSE depressant medications including opiates and benzodiazpines. -Reoriented frequently. Allowed patient to be awake and stimulated throughout the day and sleep at night with minimal interruptions. -Continued seroquel 50 mg three times daily and 25 mg every 6 hours as needed for agitation. Continued to titrate to behavior. May use soft restraints if chemical restraints do not suffice. -Psychiatric consultation with Dr. Purcell was performed who agrees with plan to continue Seroquel 50 mg 3 times daily and lorazepam 1 mg as needed for agitation 3 times daily. 2. 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 Active. -Patient is status post multiple types and rounds of chemotherapy and full brain radiation. Recently on immunotherapy with Keytruda x 1 round. -Previously discussed with oncologist at [facility], Dr. Saud Carvalho, who reviewed imaging and is unclear if metastatic lesions are increasing but reports significant increase in vasogenic/cerebral edema with compression of right ventricle. He recommended and we increased Decadron from 4 mg to 8 mg every [address] brain imaging which demonstrated no improvement in vasogenic edema. -Discussed case again with Dr. Saud Carvalho of Oncology from [facility] who recommended discontinuing high-dose steroids as it has not changed the patient's cerebral edema and has possibly contributed to his psychoses. Therefore, discontinued high dose glucocorticoid therapy and instituted physiological dose of glucocorticoid as patient has had adrenal insufficiency in the past which was confirmed with endocrinology at [facility]. Continued prednisone 5 mg daily. Blood pressure has been stable. -[facility] team had been highly encouraging of hospice for which the patient's family did not seem to be willing to consider until further discussion with oncologist. Patient's family has now met with hospice and had planned to enroll with hospice and have medical equipment delivered today for which discharge was delayed to allow to take place. However, patient's family canceled hospice enrollment and medical equipment delivery. Patient has been medically cleared to discharge since 10/15 and will be discharged today independently. 3. Acute UTI vs. asymptomatic bacturia, present on admission. Resolved. -UA was normal but urine culture was performed at hospitalists request and grew Enterococcus. He was treated with ceftriaxone and levofloxacin for total of a 5 day antibiotic course. There is a strong possibility that this was asymptomatic bacteriuria but due to his delirium it was possible that this was contributing therefore was treated. 4. Acute on chronic constipation, present on admission. Improving. -Abdominal series demonstrated moderate colonic obstipation through the abdomen and pelvis bilaterally. -Implemented bowel regimen: Received dulcolax 10 mg x 1. Continue Colace 100 mg twice daily and MiraLax 17 g daily. Ordered senna and dulcolax suppository daily as needed for constipation. 5. Chronic atrial fibrillation, present on admission. Stable. -Currently rate controlled. -Continued carvedilol 12.5 mg twice daily. 6. Hypertension, chronic, present on admission. Stable. -Continued aspirin 325 mg daily, carvedilol 12.5 mg twice daily, furosemide 40 mg daily, and potassium chloride 20 mg daily. 7. Hyperlipidemia, chronic, present on admission. Stable. -Continued atorvastatin 10 mg daily at bedtime. 8. Diabetes mellitus type 2, non-insulin using, chronic, present on admission. Stable. -Hemoglobin A1c 5.9% in 04/2017. Ordered repeat hemoglobin A1c, pending. -Continued metformin 1000 mg daily in the morning and 500 mg daily before bedtime. -Stopped long-acting insulin with discontinuation of high-dose glucocorticoids. -Continued [facility] blood glucose checks and low-dose correctional scale insulin. -Continued regular diet as patient is not eating and want to continue to encourage/stimulate him to eat. 9. Hypothyroidism, chronic, present on admission. Stable. -Continued levothyroxine 125 mcg daily. 10. BPH, chronic, present on admission. Stable. -Continued doxazosin 4 mg daily. 11. GERD, chronic, present on admission. Stable. -Continued omeprazole 40 mg twice daily. 12. Chronic back pain with peripheral neuropathy, chronic, present on admission. Stable. -Continued home oxycodone 7.5 every 4 hours as needed for moderate to severe pain. 13. Restless legs syndrome, chronic, present on admission. Stable. -Continued ropinirole 2.5 mg daily at bedtime. Exam Vital Signs (past 8 hours): - 10/16/18 07:00 10/16/18 08:28 10/16/18 10:26 Temperature 98.2 F Pulse Rate 107 H 111 H Respiratory Rate 15 Blood Pressure 130/65 134/71 Pulse Oximetry 95 95 10/16/18 10:37 10/16/18 10:44 10/16/18 12:00 Temperature 98 F Pulse Rate 111 H 105 H Respiratory Rate 15 Blood Pressure 134/71 103/43 L Pulse Oximetry 95 95 Fraction of Inspired Oxygen 21 Oxygen Delivery Method Room Air Oxygen Flow Rate 0 Narrative Exam Narrative: General: Elderly thin male sitting in bed and in no acute distress, appears chronically ill, moderate confusion with short-term memory recall deficit, alert oriented to person only, somnolent but easily arousable, behavior controlled. HEENT: Normocephalic, atraumatic. External ears without defect. Pupils equal, round, and reactive to light. Anicteric sclerae, moist conjunctivae, and no lid lag. Neck: Supple with full range of motion. No lymphadenopathy or thyromegaly. Cardiovascular: Heart sounds distant but appears to be irregularly irregular without murmurs, rubs, or gallops appreciated. Pulmonary: Diminished throughout but appears to be clear to auscultation bilaterally with slight crackle on right. No wheezes or rhonchi. Normal respiratory effort with no use of accessory muscles. Abdomen: Soft, bowel sounds present, nontender, nondistended. No hepatosplenomegaly or masses appreciated. Extremities: No clubbing, cyanosis, or edema. Skin: Normal temperature, turgor, and texture; no rash, ulcers, or subcutaneous nodules appreciated. Neurological: Cranial nerves grossly intact. Psychiatric: Alert oriented to person only. Moderate confusion with short-term memory recall deficit. Somnolent and behavior well controlled. Objective Labs Result Diagrams: 10/07/18 11:05 10/07/18 11:05 Discharge Plan Discharge Plan Patient Disposition: Home Discharge comment: You are being discharged home with comfort care only. You may choose to have hospice involved or not. Discharge Med Rec/Prescriptions Prescriptions: New quetiapine 25 mg Tablet 50 mg PO TID Qty: 180 RF: 0 sennosides [senna] 8.6 mg Tablet 17.2 mg PO BEDTIME PRN (Reason: Constipation) Qty: 30 RF: 0 polyethylene glycol 3350 17 gram Powder In Packet 17 gm PO DAILY Qty: 30 RF: 0 docusate sodium [DOK] 100 mg Capsule 100 mg PO BID Qty: 60 RF: 0 Continued levothyroxine [Synthroid] 125 MCG tablet 125 mcg PO DAILY Qty: 0 RF: 0 metformin [Glucophage] 500 MG tablet 1,000 mg PO QAM Qty: 0 RF: 0 latanoprost 0.005 % drops 1 drp ophthalmic (eye) BEDTIME RF: 0 sennosides 8.6 mg tablet 17.2 mg PO BEDTIME MDD 2 tabs PRN (Reason: Constipation) RF: 0 omeprazole 40 mg capsule,delayed release(DR/EC) 40 mg PO BID RF: 0 metronidazole 0.75 % cream 1 applic Topical BID RF: 0 dorzolamide-timolol 22.3-6.8 mg/mL drops 1 drp ophthalmic (eye) BID RF: 0 albuterol sulfate 90 mcg/actuation HFA aerosol inhaler 2 puff Inhalation Q6H PRN (Reason: Shortness Of Breath) RF: 0 ketoconazole 2 % cream 1 applic Topical BID RF: 0 metoclopramide HCl 10 mg tablet 10 mg PO Q6H PRN (Reason: Nausea) RF: 0 atorvastatin 10 mg tablet 10 mg PO BEDTIME RF: 0 modafinil 200 mg tablet 200 mg PO DAILY RF: 0 oxycodone-acetaminophen 10-325 mg tablet 1 tab PO Q4H PRN (Reason: pain) RF: 0 testosterone cypionate 200 mg/mL oil 200 mg IM QMONTH RF: 0 escitalopram oxalate 20 mg tablet 20 mg PO DAILY RF: 0 lactulose 10 gram/15 mL solution 1 dose PO DIRECTED RF: 0 potassium chloride 10 mEq capsule, extended release 20 meq PO DAILY RF: 0 magnesium 250 mg Tablet 250 mg PO DAILY RF: 0 furosemide 40 mg tablet 40 mg PO DAILY RF: 0 metformin 500 mg tablet 500 mg PO QPM RF: 0 carvedilol 12.5 mg tablet 12.5 mg PO BID RF: 0 aspirin 325 mg Tablet 325 mg PO DAILY RF: 0 ropinirole 2 mg tablet 2 mg PO BEDTIME PRN (Reason: parkinsons) RF: 0 ferrous sulfate [iron] 325 mg (65 mg iron) Tablet 325 mg PO DAILY RF: 0 ropinirole 0.5 mg tablet 0.5 mg PO BEDTIME PRN (Reason: parkinsons) RF: 0 niacin 500 mg Tablet 500 mg PO DAILY RF: 0 doxazosin 4 mg tablet 4 mg PO DAILY RF: 0 cholecalciferol (vitamin D3) [Vitamin D3] 5,000 unit Tablet 5,000 unit PO DAILY RF: 0 CoQ-10 300 mg capsule 300 mg PO DAILY RF: 0 olanzapine 15 mg tablet,disintegrating 15 mg PO BEDTIME RF: 0 Changed prednisone 10 mg tablet 5 mg PO DAILY Qty: 0 RF: 0 lorazepam 1 mg tablet 1 mg PO TID PRN (Reason: Agitation) Qty: 0 RF: 0 Discontinued dexamethasone [Decadron] 4 mg tablet 4 mg PO Q6H Qty: 28 RF: 0 Follow up/Referrals: Allen Zaragoza MD [Primary Care Provider] - Provider Discharge Instructions Diet: Diet as Tolerated Activity: As tolerated Visit Report/Discharge Packet Visit Report Forms: Stroke Signs & Symptoms Discharge Data Primary Care Provider: Allen Zaragoza Attending Provider: Trinh Sheppard Admit Date/Time: 10/08/18 13:08
--- NOTE | 2018-10-16 14:16 | PC.NURSE ---
AIRFRAME TECHNICIAN Pt was calm and sitting in chair eating lunch , family came and patient became restless. family attempting to assist patient let them know to call for assistance and not to attempt to assist their selves. notified RN
--- NOTE | 2018-10-16 14:32 | CM.DPC ---
CELERY TIER/DCSurekha Note: Received verbal referral this AM from Dr. Sheppard re: d/c planning. CHRIS/Carito assigned to case today. Carito was notified by Janiya at hospice this AM that family had called and postponed meeting to sign hospice consents today. Meeting was scheduled for 11:00AM. DME was being scheduled to be delivered to residence today. All services postponed as of around 10:30AM today. Dr. Sheppard notified. Dr. Sheppard requesting assistance from CELERY TIER to meet with family today and proceed with d/c plan and discharge. CHRIS/Kendra available to assist. Per Dr. Sheppard patient is medically stable to discharge from acute care setting. Initially, patient remained hospitalized extra day so that family could finalize hospice and get DME delivered. However, now that family has chosen to postpone hospice patient discharged from [facility]. CHRIS and Dr. Sheppard met with spouse/Olamide and Trinh/Ami at bedside. Dr. Sheppard notified family that patient medically stable for discharge. Family upset and report that they feel that patient's discharge not justified and they are not in anyway prepared to take him home. Patient sleeping at time of visit. Patient cleared by therapy to return home with therapy. Patient continues with confusion secondary to dementia and brain mets. Dr. Sheppard reiterated to spouse and family that discharge had been discussed for the last 48hrs. which included home with hospice. Spouse reports that she only postponed' hospice she had not intention of cancelling it. Spouse reports that she wanted to have conversation with patient's Oncologist before signing consents. No new scheduled appointment made with hospice so it remains unknown if family were planning to re-schedule. Spouse provided with Important Message from Medicare and provided with option of appeal. Spouse instructed by CELERY TIER on how to call. Letter provided to spouse with specific instructions. Spouse did call and start appeal process with Art[facility]. No requests for medical records have been received as of 2:30pm today. Spouse also inquiring on how she can go about signing hospice consents. CELERY TIER offered to call hospice and request that they be faxed. Placed call to Elizabeth at [facility] she confirms that services were postponed this AM. Elizabeth in agreement to fax consents to [facility] department. Received consents and provided them to spouse and D-I-L. CM team offered to fax them back to hospice if needed. Also CELERY TIER instruced spouse to call Elizabeth at hospice with any questions related to their consents. At this time Elizabeth reports that she can have DME delivered to residence tomorrow 10-17-18. Elizabeth unsure on what day they can actually see patient in the residence. Spouse aware of the above. Resources provided to spouse for private caregivers in the residence if needed. Spouse unsure of plan once they get home. Encouraged spouse to discuss needs with hospice once patient home. P: Appeal in process. Hospice pending. CM department provided spouse with hospice consents and communtiy resources for services in the home if needed. If requested CM team will fax back on patient's behalf. Dr. Sheppard updated. CELERY TIER team updated on above. JON/Kalyn to f/u with Arturo re: appeal on 10-16-18. CHRIS Spear MSW
--- NOTE | 2018-10-16 14:44 | PC.NURSE ---
Pt has been somulent but appropriate until around 1300. Pt becomes more agitated when family is here visiting. He is more anxious and restless. Family will try to intervene in care and help him transfer. This is unsafe and we have imformed family that staff will take care of patient when he is getting up to use the bathroom or ambulating. Morning seroquel held as pt was sleepy. He has aroused to name and when we talk to him... He ate both meals at breakfast and lunch. Pt had one large void this shift and is now in the chair resting with and daugther in law in room.
--- NOTE | 2018-10-16 15:01 | CM.DPC ---
DCP Cont: Faxed consent forms to [facility] requested by patient's family, at fax # [phone]. Fax confirmation received. Was asked by patient's Student RN to please return the original paperwork to the family, but the fax was not done transmitting yet, so I informed her I would bring them the entire packet once I had a fax confirmation. Went to patient's room (about 10 minutes later) and was told by patient's FOREST FIRE MANAGEMENT OFFICER that the family did not want to wait for me, so they left. The original consents with the fax confirmation were left in the patient's red folder, FOREST FIRE MANAGEMENT OFFICER notified. Kalyn Crenshaw, Care Audio Visual Collections Coordinator
[2018-10-16] MEDS: QUETIAPINE 25 MG TABLET 50 MG PO ×2 (16:09→20:24)
[2018-10-16] MEDS: ATORVASTATIN 10 MG TABLET PO (20:24)
[2018-10-16] MEDS: LATANOPROST 0.005% OPHTH 2.5 ML 1 DROPS EYE-BOTH (20:24)
[2018-10-17] VITALS (14 sets, daily range): BP systolic 107–148; BP diastolic 52–96; PULSE 67–109; RESP 16–19; TEMP 36.1–36.6; O2SAT 92–96
[2018-10-17] MEDS: LORazepam 1 MG TABLET PO ×3 (00:48→20:26)
[2018-10-17] MEDS: OXYCODONE/ACETAMINOPHEN 5/325 TABLET 1.5 TAB PO ×3 (00:48→13:34)
--- NOTE | 2018-10-17 02:13 | PC.NURSE ---
Addendum entered by Miranda Stahl R.N. 10/17/18 05:35: 0345: Pt had an unmeasured void when he sat on the edge of his bed and urinated on the floor. He was promptly changed into clean pajama bottoms provided by the family, clean brief, and clean socks. 0535: Medicated pt for paid per JUL with 1.5 tab Percocet PO and scheduled Levothroxine PO. Pt requesting warm towels and coffee. Chair alarm active for safety. Original Note: Shift Note: 2300: Received pt from evening shift. 1:1 assistance is not available tonight. Pt appeared to be resting comfortably in bed. Around 0015 NOTCHING PRESS OPERATOR responded to bed alarm and found pt attempting to sit in one of the rolling chairs at the nurses station with pt's pants down. NOTCHING PRESS OPERATOR was able to stop pt from potential fall. Pt stating I need the bathroom, able to ambulate back into room and safely to the toilet with 1 person assist. Informed coordinator of pt's restlessness and was able to get stand by help for when pt is active. Pt requesting to leave room, pt agreed to sit in wheelchair and was wheeled around the acute floor and sat in the wheelchair at the main nursing station for about 5 minutes. 0030: Pt reporting pain is keeping him awake and wanted to know why we can't turn operator all the lights stating that I don't know if it's day or night. Offered pain medication 1.5 tabs Percocet PO and 1mg Ativan PO for sleep to which patient consented and willingly took on his own document per JUL. Pt asked to be moved to bedside chair and was given a sugar free hot chocolate to drink. 0215: Pt appears to be resting comfortably in bedside chair, chair alarm on for safety.
[2018-10-17] MEDS: LEVOTHYROXINE 125 MCG TABLET PO (05:30)
[2018-10-17] MEDS: INSULIN ASPART 100 UNIT/ML INSULN PEN SUBCUT ×3 (09:13→18:09)
[2018-10-17] MEDS: SODIUM CHLORIDE 0.9% FLUSH 10 ML IV ×2 (09:17→20:29)
[2018-10-17] MEDS: DOCUSATE 100 MG CAPSULE PO ×2 (09:19→20:26)
[2018-10-17] MEDS: ASPIRIN EC 325 MG TABLET PO (09:19)
[2018-10-17] MEDS: PANTOPRAZOLE 40 MG TABLET PO ×2 (09:20→20:26)
[2018-10-17] MEDS: CARVEDILOL 12.5 MG TABLET PO ×2 (09:20→20:26)
[2018-10-17] MEDS: DOXAZOSIN 4 MG TABLET PO (09:21)
[2018-10-17] MEDS: predniSONE 5 MG TABLET PO (09:22)
[2018-10-17] MEDS: FUROSEMIDE 40 MG TABLET PO (09:23)
[2018-10-17] MEDS: POLYETHYLENE GLYCOL 3350 17 GM POWD.PACK PO (09:23)
[2018-10-17] MEDS: HEPARIN 5,000 UNIT/ML VIAL 5000 UNIT SUBCUT ×2 (09:26→20:26)
[2018-10-17] MEDS: POTASSIUM CHLORIDE 20 MEQ TAB PO (09:29)
[2018-10-17] MEDS: DORZOLAMIDE/TIMOLOL OPHTH 10 ML 1 DROPS EYE-BOTH ×2 (09:32→20:31)
--- NOTE | 2018-10-17 10:43 | PC.NURSE ---
Pt has been somulent this morning but is easily arousable. He denies pain. Has not voided yet but we keep asking pt. Will check again in an hour or so. He is eating well at meals. Resting in chair now.
[2018-10-17] MEDS: QUETIAPINE 25 MG TABLET 50 MG PO ×2 (14:29→20:26)
--- NOTE | 2018-10-17 15:16 | PC.NURSE ---
expressed some paranoia toward staff, especially Dr. Sheppard. Family wanting over double the current dose of seroquel, although patient behaviors calm and cooperative this shift. Dr. Sheppard, social work and nursing aware. Family states not in agreement with POC currently, but state It will get fixed when we go home tomorrow with hospice. Dr. Sheppard aware and have discussed plan of care in length with family.
--- NOTE | 2018-10-17 15:24 | CM.DPNOTE ---
Reviewed chart. Received this email from Thania Thomas in Medical Records re: [facility] [employer] Appeal medical records request, dated 10.17.18 0848: Good Morning, We received fax confirmation this morning that all 729 pages were successfully transmitted Sunday afternoon. No determination from [facility] as of [id number]. Received VM from Janiya w/ [facility]; she has been reviewing the DCP w/ pt's spouse Olamide and Olamide has agreed to pt's DC from , home w/ Hospice, Sunday10.18.18 in the morning. [facility] RN will be in their home at [phone]. Met w/pt, spouse Olamide, and Olamide's DIL, w/RN Estephania at bedside to review DCP. Olamide is agreeable to pt's departure from in the morning, agreeable to BLS transportation taking pt home to [address] [place]. Olamide will arrive tomorrow morning at approx [phone] at to be present for pt. Other family will be at home, DME has already been delivered by [facility]. BLS transport arranged by [facility] this afternoon for p/u Sunday08.18.[address] Sheppard updated this afternoon; Dr Nava coming onto service tomorrow morning. P: DC Sunday morning via BLS , home w/family to assist and sales enablement consultant arriving between [phone]. Following closely for coordination. CHRIS Soares
[2018-10-17] MEDS: ACETAMINOPHEN 325 MG TABLET 650 MG PO (15:49)
--- NOTE | 2018-10-17 17:16 | PC.NURSE ---
Addendum entered by Jarad Cordoba R.N. 10/17/18 22:15: Patients called and spoke with covering nurse and this nurse regarding shower this evening. was very upset regarding the fact that patient had not been showered this evening. Staffing made mult. attempts to have patient take a shower this evening and patient refused every time staff members asked. When this nurse spoke to the , the was very upset stating this is completely unacceptable and unhygienic that patient has yet to receive a shower I explained to that the staff members can not force the patient to do anything he does not want to do. proceeded to yell raise her voice over the phone at this nurse and stated You need to make him shower. This nurse explained that it is against our policy to force a patient to do anything against their wishes and that was not how we operated things at this hospital. states He is no in a cognitive state to make proper decisions I stated I understood her frustrations but we still are unable to force patient into the shower or get a bed-bath if he refuses. It was very obvious to this nurse that the conversation was going in circles and the was not understanding why the staff members were not going to force the patient in the shower and this nurse asked the would you want to be forced to do something you didn't want to do? Patients did not answer me. This nurse offered to have her speak to the charge nurse where she can voice her complaints but refused, stating I know I will get the same answer as you gave me. I said my apologies for her frustration and that we must follow hospitals policy of respecting the wishes of our patients. Addendum entered by Jarad Cordoba R.N. 10/17/18 20:12: Patient has been consistently impulsive this evening going back and forth from bed to chair. Patient walked up in halls as a stand by assist w/ FWW. Patient walked in halls about [address] around the [facility] and back to room to bed. Patient's aggitation has increased as the evening has progressed. Addendum entered by Jarad Cordoba R.N. 10/17/18 19:27: family req. upon leaving today that patient receive a shower this blane before d/c'ing home tomorrow morning. Patient has been asked several times by this nurse and aid if she would be up for a shower this blane and he has refused every time stating I showered yesterday. Patient did not have a shower yesterday blane with us as he believes to. Staff will cont. to ask through the blane. Original Note: Patients dinner tray arrived and was delivered by bath tester. of patient started disrespectfully talking to hospital aide (DA) regarding patient's dinner tray and why the patient didn't have 2 rolls on his tray with his pasta after she () specifically ordered 2 rolls with said DA. Patient is a diabetic and bath tester tried to explain to in the halls (this nurse witnessed whole conversation) that patient is on a ADA diet and that he is allowed only a certain amount of carbohydrates. was balling up her fist and raising her voice at hospital aide. financial aids officer handled the situation very gracefully despite the patient's 's disposition and attitude towards her. In a calming manner the hospital aide explained why there was not a second roll placed on tray, demanded a piece of bread be brought in to patient's room. went back into room and DA asked if she was able to take in a piece of whole wheat bread in place of roll. This nurse said yes, to appease family members. has cont. to complain about staff members to other staff members regarding issues of medications, that this hospital is not meeting his needs for pain control, and continues to rudely comment on their thoughts about the doctors. voiced to this nurse that she will be happy to get patient home and out of this place.
[2018-10-17] MEDS: ATORVASTATIN 10 MG TABLET PO (20:26)
[2018-10-17] MEDS: LATANOPROST 0.005% OPHTH 2.5 ML 1 DROPS EYE-BOTH (20:31)
[2018-10-18] VITALS (7 sets, daily range): BP systolic 108–147; BP diastolic 69–101; PULSE 80–113; RESP 17–18; TEMP 36.4–37.1; O2SAT 97
--- NOTE | 2018-10-18 02:14 | PC.NURSE ---
Pt. increasingly agitated, drowsy since assessed @ 0000. Hospitalist HERMAN Martin notified, will cont. POC & monitor.
--- NOTE | 2018-10-18 02:20 | PC.NURSE ---
Twice tonight this pt has been combatted toward me and the nurse, pushing his walker toward us in a aggressive way and saying he is done,tried to swing at the nurse.
[2018-10-18] MEDS: HALOPERIDOL 5 MG/ML VIAL 2.5 MG IV (02:25)
[2018-10-18] MEDS: SODIUM CHLORIDE 0.9% FLUSH 10 ML IV (02:26)
--- NOTE | 2018-10-18 05:42 | PC.NURSE ---
Pt. reported Oxycodone 5 mg. Not effective pain relief & it made me nauseous. Dilaudid 2 mg. PO admin. HV unclamped earlier, will cont. POC & monitor.
[2018-10-18] MEDS: LEVOTHYROXINE 125 MCG TABLET PO (06:05)
[2018-10-18] MEDS: OXYCODONE/ACETAMINOPHEN 5/325 TABLET 1.5 TAB PO (07:23)
[2018-10-18] MEDS: QUETIAPINE 25 MG TABLET 50 MG PO (07:24)
[2018-10-18] MEDS: POLYETHYLENE GLYCOL 3350 17 GM POWD.PACK PO (09:18)
[2018-10-18] MEDS: CARVEDILOL 12.5 MG TABLET PO (09:20)
[2018-10-18] MEDS: FUROSEMIDE 40 MG TABLET PO (09:20)
[2018-10-18] MEDS: PANTOPRAZOLE 40 MG TABLET PO (09:20)
[2018-10-18] MEDS: ASPIRIN EC 325 MG TABLET PO (09:20)
[2018-10-18] MEDS: DOXAZOSIN 4 MG TABLET PO (09:21)
[2018-10-18] MEDS: predniSONE 5 MG TABLET PO (09:21)
[2018-10-18] MEDS: DOCUSATE 100 MG CAPSULE PO (09:22)
[2018-10-18] MEDS: POTASSIUM CHLORIDE 20 MEQ TAB PO (09:24)
[2018-10-18] MEDS: HEPARIN 5,000 UNIT/ML VIAL 5000 UNIT SUBCUT (09:25)
[2018-10-18] MEDS: DORZOLAMIDE/TIMOLOL OPHTH 10 ML 1 DROPS EYE-BOTH (09:28)
--- NOTE | 2018-10-18 09:46 | PC.NURSE ---
Patient discharged today after giving am medications, patient calm, cooperative, but sleepy. arouses to touch, voice, or pain. and daughter in law at bedside. Removal of IV per protocol, tip intact. vitals stable prior to d/c. BG 109 this am, held insulin per protocol. Denied pain after percocet given- was effective for pain management. Primary RN Estephania assisted with discharge, and patient was picked up by S transport at 0940.
--- NOTE | 2018-10-18 10:37 | PC.NURSE ---
Pt discharged to home at 0930. Olamide who is patients had many questions for the nurse, nurse discharge planner, and disability rater's. She was appropriate. Pt did not get a shower as he refused many times. Given percocet and seroquel this morning as patient was increased anxiety and impulsivity. Both medications helped calm patient down for a couple of hours, [facility] one person assist with gaitbelt. Pt did leave his glasses here, will call patients family to come and get them.
--- NOTE | 2018-10-18 15:49 | CM.DPNOTE ---
All in place this morning for pt's safe return home w/Hospice to open for comfort management. DC order updated to reflect today's date. No medication changes. Reviewed DC plan again w/spouse Olamide this morning, she remains agreeable. [facility] arrived on time at 0930 to transport pt home, Olamide funez w/pt and [facility]. No determination from [facility] as of 1550. P: DC home today, w/ family to assist and Hospice to provide comfort management. CHRIS Soares
--- NOTE | 2018-10-19 15:37 | CM.DPNOTE ---
[facility] Determination: VM left for this GLOBAL MARKETING OPERATIONS MANAGER Sunday afternoon from [facility] stating the following: Re: case # [id number], Physician has reviewed and agrees w/ DC of services. Last covered date is 10.18.18. P# [phone] for any additional questions. Heather Browne, GLOBAL MARKETING OPERATIONS MANAGER
== END 2018-10-18 09:40 | disposition hospice, home (50) | DRG 80 ==
LOC: ED 12:43 → AC 13:00
PROVIDERS: Admitting Provider Internal Medicine; Emergency Provider Emergency Medicine; Family Provider Internal Medicine Geriatric Medicine; PCP Internal Medicine Cardiovascular Disease; Visit Provider Internal Medicine
DX: G93.6 Cerebral edema (principal); G93.5 Compression of brain; C34.90 Malignant neoplasm of unspecified part of unspecified bronchus or lung; C79.31 Secondary malignant neoplasm of brain; E87.1 Hypo-osmolality and hyponatremia; N39.0 Urinary tract infection, site not specified; R62.7 Adult failure to thrive; Z68.25 Body mass index [BMI] 25.0-25.9, adult; B96.89 Other specified bacterial agents as the cause of diseases classified elsewhere; I10 Essential (primary) hypertension; E78.5 Hyperlipidemia, unspecified; E11.9 Type 2 diabetes mellitus without complications; Z87.891 Personal history of nicotine dependence; I48.2 Chronic atrial fibrillation; Z79.84 Long term (current) use of oral hypoglycemic drugs; E03.9 Hypothyroidism, unspecified; G25.81 Restless legs syndrome
CPT/HCPCS: 36415; 36591; 70450; 70470; 74022; 80048; 81001; 82962; 83036; 83735; 85025; 87077; 87086; 87186; 90792; 94760; 97116; 97162; 97166; 97530; 99283; 99284; G0378; J0696; J1630; J1644; J1956; Q9967